=== PATIENT | male | born 1965 | race Caucasian/White ===

== ENCOUNTER → 2016-08-15 | Outpatient (CLI) | payer OTHER ==
--- NOTE | 2016-08-15 22:17 | MR ---
EXAMINATION TYPE: MR lumbar spine wo con DATE OF EXAM: 08/15/2016 10:19 AM COMPARISON: NONE HISTORY: Lumbago TECHNIQUE: T1 and T2 axial and sagittal images of the lumbar spine are submitted. FINDINGS: There is no abnormal signal seen within the visualized spinal cord or paraspinal soft tissu es. Vertebral vertebral body alignment maintained. Very minimal wedging of L1 appears chronic. Conus medullaris terminates at the upper margin of L1. Schmorl's node are seen involving [id number]. At T12-L1 there is mild circumferential disc bulging. No Canal stenosis. No foraminal encroachment. At L1-2 there is degenerative disc disease and circumferential disc bulging with mild effacement of t hecal sac. There is borderline to mild canal stenosis. Annular tear noted. No significant foraminal e ncroachment. At L2-3 there is no disc herniation or canal stenosis. Mild hypertrophy of the facet joints but no fo raminal encroachment or canal stenosis. At L3-4 there is degenerative disc disease with broad-based disc bulging result in moderate effacemen t of thecal sac. Facet arthropathy and ligamentum flavum contribute to mild canal stenosis and bilate ral mild foraminal encroachment. At L4-5 there is severe degenerative disc disease with a focal central disc protrusion or small centr al and left paracentral disc herniation with moderate effacement of thecal sac. There is hypertrophic change and ligamentum flavum and facet joints. Mild bilateral neural foraminal encroachment with mod erate canal stenosis. At L5-S1 there is no disc herniation or canal stenosis. No foraminal encroachment. IMPRESSION: 1. Multilevel degenerative disc disease with canal stenosis noted at levels L3-4 and L4-5 secondary t o disc bulging or protrusions discussed above. 2. Annular tear with disc bulging L1-L2 results in borderline to mild canal stenosis.
--- NOTE | 2016-08-16 12:46 | MR ---
MRI of the brain with and without contrast HISTORY: Visual disturbance. TECHNIQUE: T1-weighted sagittal, T2, FLAIR, and diffusion axial, postcontrast T1 axial and coronal vi ews of the brain are submitted. CONTRAST: 15 mL of MultiHance FINDINGS: There is no evidence of acute ischemia. The ventricles, basal cisterns, and sulci overlying the co nvexities are consistent with the patient's age. There is no mass effect or enhancing mass. Craniocervical junction maintained. Partially empty sella turcica. No evidence of cerebellopontine an gle mass. Changes of chronic sinusitis noted. There is a prominent CSF collection in the posterior fossa midlin e to the right measuring approximately 2 x 4 x 3.6 cm. This could represent a small arachnoid cyst or prominent cisterna magna. WHITE MATTER: No sizable areas of abnormal signal within the white matter. IMPRESSION: 1. No acute intracranial process. 2. Findings suggestive of a prominent cisterna magna or small arachnoid cyst within the posterior fos sa. EXAMINATION TYPE: MR cervical spine wo/w DATE OF EXAM: 08/15/2016 10:43 AM COMPARISON: NONE HISTORY: Visual disturbance, neck pain TECHNIQUE: T1 sagittal and coronal, T2 sagittal, and gradient echo axial, postcontrast T1 axial and s agittal views of the cervical spine are submitted. FINDINGS: The cranial cervical junction is preserved. There is no abnormal signal seen within the sp inal cord or paraspinal soft tissues. Alignment is maintained. Vertebral body height is maintained. T here is anterior cervical spinal fusion of C5-C7. Susceptibility artifact within the vertebral bodies limits evaluation at these levels. Prominent CSF space intracranially likely related to arachnoid cy st versus prominent cisterna magna. At C2-3 there is disc desiccation and mild uncovertebral joint hypertrophy. No foraminal encroachment , disc herniation or canal stenosis. At C3-4 there is moderate to severe degenerative disc disease. There is a central disc protrusion cap ped by spur compatible with a disc osteophyte complex. This results in anterior spinal cord compressi on. Uncovertebral joint hypertrophy and facet arthropathy result in severe bilateral foraminal encroa chment. At C4-5 there is posterior disc bulging or protrusion with disc osteophyte complex abutting the anter ior margin the spinal cord. Mild spinal stenosis. Uncovertebral joint hypertrophy and facet arthropat hy with mild right-sided foraminal encroachment and moderate left-sided foraminal encroachment. At C5-6 there is evidence of anterior cervical spinal fusion with probable discectomy. No canal steno sis or disc herniation. Facet arthropathy and uncovertebral joint hypertrophy result in severe bilate ral foraminal encroachment. At C6-7 there is postsurgical changes with no evidence of disc herniation or canal stenosis. Uncovert ebral joint hypertrophy seen with mild right foraminal encroachment and moderate left foraminal encro achment. At C7-T1 there is very mild central and posterior disc osteophyte complex without evidence of canal s tenosis. Facet arthropathy and uncovertebral joint hypertrophy with mild right foraminal encroachment and moderate left foraminal encroachment. IMPRESSION: 1. Postsurgical change compatible with anterior cervical spine fusion C5-C7 with no evidence of disc herniation or canal stenosis at this level. 2. Spinal cord compression C3-C4 secondary to disc protrusion capped by spur with significant spinal stenosis. 3. Multilevel degenerative disc disease with the most marked findings at C3-C4. There is also multile xin foraminal encroachment secondary to facet arthropathy and uncovertebral joint hypertrophy as disc ussed above.
== END | disposition home or self-care (01) ==
LOC: RADMRIMAIN 09:07
PROVIDERS: ATTEND Psychiatry & Neurology Neurology
DX: M51.36 Other intervertebral disc degeneration, lumbar region (principal); M51.26 Other intervertebral disc displacement, lumbar region; M48.06 Spinal stenosis, lumbar region; H53.9 Unspecified visual disturbance; M54.2 Cervicalgia
CPT/HCPCS: 70553; 72148; 72156; A9577

== ENCOUNTER → 2016-10-20 | Outpatient (CLI) | payer OTHER ==
--- NOTE | 2016-10-20 11:30 | XR ---
EXAMINATION TYPE: XR cervical spine w flex/ext DATE OF EXAM ORDERED: 10/20/2016 10:52 AM HISTORY: M50.30 cervical DDD. COMPARISON: None. FINDINGS: There has been a previous ACDF extending from C5 through to C7. Alignment remains normal. There is disc space loss and hypertrophic spondylosis at C2-3 and C3-4. Atlantoaxial relationships ar e normal. The intervertebral foramina left are poorly visualized. On the right there appears to be na rrowing most marked at C5-6 but also present at C6-7 and to a lesser extent C4-5. IMPRESSION: 1. POSTSURGICAL CHANGE. 2. DEGENERATIVE CHANGE. 3. MULTILEVEL INTERVERTEBRAL FORAMINAL NARROWING.
== END | disposition home or self-care (01) ==
LOC: RADXRMAIN 10:36
PROVIDERS: ATTEND Psychiatry & Neurology Neurology
DX: M99.71 Connective tissue and disc stenosis of intervertebral foramina of cervical region (principal); M47.812 Spondylosis without myelopathy or radiculopathy, cervical region; Z98.890 Other specified postprocedural states
CPT/HCPCS: 72052

== ENCOUNTER 2017-07-17 09:56 | Emergency (ER) | payer OTHER ==
--- NOTE | 2017-07-17 11:00 | ED ---
General Adult HPI - General Chief complaint: Fall Stated complaint: Fell downstairs 15 steps on Sunday Time Seen by Provider: 07/17/17 10:45 Source: patient, RN notes reviewed Mode of arrival: wheelchair Limitations: no limitations - History of Present Illness Initial comments: 52-year-old male presenting for evaluation of left-sided chest wall pain. Patient fell on Sunday which was 4 days ago. He states he fell down approximately 15 steps. He had left shoulder left hip and left chest wall pain after the fall. He was evaluated at an outside emergency department and was told that he had several rib fractures on the left. This is his primary pain complaint. States his shoulder and hip are improving. He denies any head or neck trauma with the fall. Denies any central chest pain or pressure. Denies abdominal pain nausea vomiting. No fever. He does report mild productive cough. He has a long-time history of smoking, no history of COPD or asthma. Patient is concerned because he is unable to clear his cough secondary to pain with deep inspiration. Patient was prescribed [place] and Motrin, he did not fill the Motrin and he's been taking the [place]. - Related Data Home Medications Medication Instructions Recorded Confirmed Cyclobenzaprine [Flexeril] 10 mg PO DAILY PRN 07/17/17 07/17/17 Hydrocodone/Acetaminophen [[place] 1 tab PO Q6HR PRN 07/17/17 07/17/17 7.5-325] Previous Rx's Medication Instructions Recorded HYDROcodone/APAP 5-325MG [[place] 1 tab PO Q6HR PRN #24 tab 07/17/17 5-325] Ibuprofen [Motrin] 600 mg PO Q8HR PRN #30 tab 07/17/17 Allergies Allergy/AdvReac Type Severity Reaction Status Date / Time No Known Allergies Allergy Verified 07/17/17 11:27 Review of Systems ROS Statement: Those systems with pertinent positive or pertinent negative responses have been documented in the HPI. ROS Other: All systems not noted in ROS Statement are negative. Past Medical History Additional Past Medical History / Comment(s): neck pain History of Any Multi-Drug Resistant Organisms: None Reported Additional Past Surgical History / Comment(s): cervical fusion Past Psychological History: No Psychological Hx Reported Smoking Status: Current every day smoker Past Alcohol Use History: Occasional Past Drug Use History: None Reported General Exam Limitations: no limitations General appearance: alert, in no apparent distress Head exam: Present: atraumatic, normocephalic Eye exam: Present: normal appearance, PERRL ENT exam: Present: normal exam Neck exam: Present: normal inspection, full ROM. Absent: tenderness Respiratory exam: Present: normal lung sounds bilaterally, chest wall tenderness (left lateral chest wall tenderness, no ecchymosis or external signs of trauma, no flail chest). Absent: respiratory distress, wheezes, rhonchi Cardiovascular Exam: Present: regular rate, normal rhythm GI/Abdominal exam: Present: soft. Absent: distended, tenderness, guarding Extremities exam: Present: normal inspection, normal capillary refill. Absent: pedal edema Back exam: Present: normal inspection, full ROM. Absent: tenderness, vertebral tenderness Neurological exam: Present: alert, oriented X3, CN II-XII intact. Absent: motor sensory deficit Psychiatric exam: Present: normal affect, normal mood Skin exam: Present: warm, dry, intact. Absent: cyanosis, diaphoretic (no external signs of trauma) Course Vital Signs 07/17/17 09:58 Temperature 97.5 F L Pulse Rate 75 Respiratory 16 Rate Blood Pressure 122/75 O2 Sat by Pulse 98 Oximetry Medical Decision Making - Medical Decision Making 52-year-old male with rib pain status post fall. Repeat x-rays are obtained to evaluate for pneumothorax, hemothorax, or focal pneumonia given the patient's cough complaint. X-ray is negative for pneumonia, negative for heme or pneumothorax. There is minimally displaced rib fractures 5 through 9. This does correspond with the patient's pain. He is encouraged to take Motrin and continue [place] for pain. He is given an incentive spirometer. He is also encouraged to quit smoking. He will monitor his pain and bleeding. He will follow-up with his primary care physician. Disposition Clinical Impression: Rib fractures Disposition: HOME SELF-CARE Condition: Good Instructions: Rib Fracture (ED) Prescriptions: HYDROcodone/APAP 5-325MG [[place] 5-325] 1 tab PO Q6HR PRN #24 tab PRN Reason: Pain Ibuprofen [Motrin] 600 mg PO Q8HR PRN #30 tab PRN Reason: Pain Referrals: Fernando Johnson DO [Primary Care Provider] - 1-2 days Time of Disposition: 11:47
--- NOTE | 2017-07-17 11:25 | XR ---
EXAMINATION TYPE: XR ribs LT w pa chest xray DATE OF EXAM: 07/17/2017 CLINICAL HISTORY: Fall with left-sided rib pain. TECHNIQUE: Single frontal view of the chest is obtained. COMPARISON: None FINDINGS: There is no focal air space opacity, pleural effusion, or pneumothorax seen. The cardiac silhouette size is within normal limits. There are minimally displaced rib fractures of the lateral m argins of ribs 5, 6, 7, 8, 9 and the posterior margin of rib 10 on the left. No appreciable pneumotho rax is seen. These rib fractures appear acute. Mild dextroscoliotic curvature of the thoracic spine a nd multilevel mild degenerative changes of the thoracic spine and acromioclavicular joints are presen t. Cervical fusion fixation plate is noted. IMPRESSION: Acute minimally displaced rib fractures of the lateral margin of rib 5 through 9 and post erior margin of rib 10 on the left with no appreciable pneumothorax.
[2017-07-17 12:34] VITALS: BP 150/78; PULSE 87; RESP 18; TEMP 97
== END 2017-07-17 12:32 | disposition home or self-care (01) ==
LOC: EC 09:56
DX: S22.42XA Multiple fractures of ribs, left side, initial encounter for closed fracture (principal); R05 Cough; M25.512 Pain in left shoulder; M25.552 Pain in left hip; F17.200 Nicotine dependence, unspecified, uncomplicated; W10.9XXA Fall (on) (from) unspecified stairs and steps, initial encounter; Y92.009 Unspecified place in unspecified non-institutional (private) residence as the place of occurrence of the external cause
CPT/HCPCS: 99284

== ENCOUNTER 2017-08-02 00:29 | Inpatient (IN) | payer OTHER ==
[2017-08-02] MEDS ORDERED: ACETAMINOPHEN IV (For NPO) 1,000 MG in EMPTY BAG 1 BAG IVPB STA (00:31)
[2017-08-02] MEDS ORDERED: HYDROmorphone 0.5 MG/0.5 ML SYRINGE IVP STA (00:31)
[2017-08-02] MEDS ORDERED: SODIUM CHLORIDE 0.9% 1,000 ML IV STA ×3 (00:31→02:20)
[2017-08-02] MEDS ORDERED: RX INFO: IV CONTRAST WAS GIVEN 1 EACH MISC MISCELLANE PRN (00:31)
[2017-08-02] MEDS ORDERED: SODIUM CHLORIDE 0.9% 500 ML IV STA (00:31)
--- NOTE | 2017-08-02 00:41 | ED ---
General Adult HPI - General Stated complaint: Rib pain,SOB Time Seen by Provider: 08/02/17 00:31 Source: patient, EMS, RN notes reviewed, old records reviewed Mode of arrival: ambulatory Limitations: no limitations - History of Present Illness Initial comments: This is a 52-year-old male the ER for evasive chest pain severe left-sided chest pain with radiation to his back stabbing chest pain right over his heart. Patient has history of smoking. Denies any other issues. Patient has no fevers no cough. Symptoms started tonight significantly worsening. Patient is recent of left rib fractures 5. Patient's pain has been getting proceeded progressively worse despite pain medications at home. It was much worse today. Uncontrollable. Patient having difficulty breathing secondary to pain - Related Data Home Medications Medication Instructions Recorded Confirmed Cyclobenzaprine [Flexeril] 10 mg PO DAILY PRN 07/17/17 07/17/17 Hydrocodone/Acetaminophen [[place] 1 tab PO Q6HR PRN 07/17/17 07/17/17 7.5-325] Previous Rx's Medication Instructions Recorded HYDROcodone/APAP 5-325MG [[place] 1 tab PO Q6HR PRN #24 tab 07/17/17 5-325] Ibuprofen [Motrin] 600 mg PO Q8HR PRN #30 tab 07/17/17 Allergies Allergy/AdvReac Type Severity Reaction Status Date / Time No Known Allergies Allergy Verified 08/02/17 00:33 Review of Systems ROS Statement: Those systems with pertinent positive or pertinent negative responses have been documented in the HPI. ROS Other: All systems not noted in ROS Statement are negative. Past Medical History Additional Past Medical History / Comment(s): neck pain History of Any Multi-Drug Resistant Organisms: None Reported Additional Past Surgical History / Comment(s): cervical fusion Past Psychological History: No Psychological Hx Reported Smoking Status: Current every day smoker Past Alcohol Use History: Occasional Past Drug Use History: None Reported General Exam Limitations: no limitations General appearance: alert, in no apparent distress Head exam: Present: atraumatic, normocephalic, normal inspection Eye exam: Present: normal appearance, PERRL, EOMI. Absent: scleral icterus, conjunctival injection, periorbital swelling ENT exam: Present: normal exam, mucous membranes moist Neck exam: Present: normal inspection. Absent: tenderness, meningismus, lymphadenopathy Respiratory exam: Present: normal lung sounds bilaterally, decreased breath sounds (Left-sided). Absent: respiratory distress, wheezes, rales, rhonchi, stridor Cardiovascular Exam: Present: normal rhythm, tachycardia, normal heart sounds. Absent: systolic murmur, diastolic murmur, rubs, gallop, clicks GI/Abdominal exam: Present: soft, normal bowel sounds. Absent: distended, tenderness, guarding, rebound, rigid Extremities exam: Present: normal inspection, full ROM, normal capillary refill. Absent: tenderness, pedal edema, joint swelling, calf tenderness Back exam: Present: normal inspection Neurological exam: Present: alert, oriented X3, CN II-XII intact Psychiatric exam: Present: normal affect, normal mood Skin exam: Present: warm, dry, intact, normal color. Absent: rash Course Vital Signs 08/02/17 08/02/17 08/02/17 00:33 00:47 01:14 Temperature 97.8 F Pulse Rate 113 H 107 H 96 Pulse Rate [ 107 H Cake Icer ] Respiratory 22 20 18 Rate Blood Pressure 107/77 102/63 102/59 O2 Sat by Pulse 98 100 98 Oximetry 08/02/17 01:30 Temperature Pulse Rate 91 Pulse Rate [ Cake Icer ] Respiratory 18 Rate Blood Pressure 109/64 O2 Sat by Pulse 100 Oximetry - Reevaluation(s) Reevaluation #1: 08/02/17 02:49 Patient is having decreasing blood pressure, and severe pain. Pain is mildly improved. Reevaluation #2: 08/02/17 02:49 Patient has severe left sided hydropneumothorax, chest tube is placed with significant serosanguineous drainage EKG Findings - EKG Comments: EKG Findings:: EKG shows sinus tachycardia rate 1:15, UT 132, QRS 86, QTc 442 Procedures - Chest Tube Insertion Consent Obtained: verbal consent Time Out Performed: Yes Side of Procedure: left Indication: HydroPneumothorax Placed on monitor/pulse oximetry: Yes Site Prep: Povidone-Iodine Local Anesthesia: Lidocaine 2%, With Epi Insertion Site: 5th Intercostal Space, Midaxillary Scalpel: #15 Open into Pleural Space Using: Hemostats Tube Size (Kosovan): 36 Returns: Blood, Other (serosanguinous) Sutured in Place: Yes Type of Suture: Silk Dressing Applied: 4x4, Tape Attached to Suction: Yes Type of Suction: Pleuravac Repeat X-ray Results: Lung Inflated Patient Tolerated Procedure: well Medical Decision Making - Medical Decision Making 53 male the ER stay with severe left-sided chest pain. Patient is hydropneumothorax secondary to rib fractures. Patient be admitted for continued evaluation, chest tube management - Lab Data Result diagrams: 08/02/17 00:30 08/02/17 00:30 Lab Results 08/02/17 08/02/17 08/02/17 Range/Units 00:30 00:30 00:30 WBC 22.9 H (3.8-10.6) k/uL RBC 5.28 (4.30-5.90) m/uL Hgb 15.4 (13.0-17.5) gm/dL Hct 50.7 (39.0-53.0) % MCV 95.9 (80.0-100.0) fL MCH 29.2 (25.0-35.0) pg MCHC 30.4 L (31.0-37.0) g/dL RDW 12.6 (11.5-15.5) % Plt Count 470 H (150-450) k/uL Neutrophils % 89 % Lymphocytes % 4 % Monocytes % 5 % Eosinophils % 1 % Basophils % 0 % Neutrophils # 20.4 H (1.3-7.7) k/uL Lymphocytes # 0.9 L (1.0-4.8) k/uL Monocytes # 1.3 H (0-1.0) k/uL Eosinophils # 0.3 (0-0.7) k/uL Basophils # 0.0 (0-0.2) k/uL Hypochromasia Slight PT (9.0-12.0) sec INR (<1.2) APTT (22.0-30.0) sec D-Dimer (<0.60) mg/L FEU Sodium 136 L (137-145) mmol/L Potassium 4.3 (3.5-5.1) mmol/L Chloride 97 L (98-107) mmol/L Carbon Dioxide 21 L (22-30) mmol/L Anion Gap 18 mmol/L BUN 23 H (9-20) mg/dL Creatinine 1.90 H (0.66-1.25) mg/dL Est GFR (MDRD) Af Amer 45 (>60 ml/min/1.73 sqM) Est GFR (MDRD) Non-Af 37 (>60 ml/min/1.73 sqM) Glucose 117 H (74-99) mg/dL Plasma Lactic Acid Andrea (0.7-2.0) mmol/L Calcium 9.5 (8.4-10.2) mg/dL Magnesium 2.5 H (1.6-2.3) mg/dL Total Bilirubin 0.8 (0.2-1.3) mg/dL AST 20 (17-59) U/L ALT 22 (21-72) U/L Alkaline Phosphatase 139 H (38-126) U/L Total Creatine Kinase <20 L (55-170) U/L CK-MB (CK-2) <0.2 (0.0-2.4) ng/mL CK-MB (CK-2) Rel Index Troponin I <0.012 (0.000-0.034) ng/mL NT-Pro-B Natriuret Pep pg/mL Total Protein 7.3 (6.3-8.2) g/dL Albumin 3.9 (3.5-5.0) g/dL Lipase 29 (23-300) U/L 08/02/17 08/02/17 08/02/17 Range/Units 00:30 00:30 00:30 WBC (3.8-10.6) k/uL RBC (4.30-5.90) m/uL Hgb (13.0-17.5) gm/dL Hct (39.0-53.0) % MCV (80.0-100.0) fL MCH (25.0-35.0) pg MCHC (31.0-37.0) g/dL RDW (11.5-15.5) % Plt Count (150-450) k/uL Neutrophils % % Lymphocytes % % Monocytes % % Eosinophils % % Basophils % % Neutrophils # (1.3-7.7) k/uL Lymphocytes # (1.0-4.8) k/uL Monocytes # (0-1.0) k/uL Eosinophils # (0-0.7) k/uL Basophils # (0-0.2) k/uL Hypochromasia PT 10.3 (9.0-12.0) sec INR 1.1 (<1.2) APTT 27.0 (22.0-30.0) sec D-Dimer 1.99 H (<0.60) mg/L FEU Sodium (137-145) mmol/L Potassium (3.5-5.1) mmol/L Chloride (98-107) mmol/L Carbon Dioxide (22-30) mmol/L Anion Gap mmol/L BUN (9-20) mg/dL Creatinine (0.66-1.25) mg/dL Est GFR (MDRD) Af Amer (>60 ml/min/1.73 sqM) Est GFR (MDRD) Non-Af (>60 ml/min/1.73 sqM) Glucose (74-99) mg/dL Plasma Lactic Acid Andrea 1.6 (0.7-2.0) mmol/L Calcium (8.4-10.2) mg/dL Magnesium (1.6-2.3) mg/dL Total Bilirubin (0.2-1.3) mg/dL AST (17-59) U/L ALT (21-72) U/L Alkaline Phosphatase (38-126) U/L Total Creatine Kinase (55-170) U/L CK-MB (CK-2) (0.0-2.4) ng/mL CK-MB (CK-2) Rel Index Troponin I (0.000-0.034) ng/mL NT-Pro-B Natriuret Pep 219 pg/mL Total Protein (6.3-8.2) g/dL Albumin (3.5-5.0) g/dL Lipase (23-300) U/L - Radiology Data Radiology results: report reviewed (CTA chest positive for left-sided hydropneumothorax significant with mild tympanitis fax, chest x-ray after tube placement is significantly improved, multiple rib fractures), image reviewed Critical Care Time Critical Care Time: Yes Total Critical Care Time: 31 Disposition Clinical Impression: Rib fractures, Fracture of rib of left side, Hydropneumothorax, Chest pain, Atypical chest pain, Pneumothorax Disposition: ADMITTED IP TO THIS [facility] Condition: Fair Referrals: Fernando Johnson, [Primary Care Provider] - 1-2 days
[2017-08-02 00:51] LABS: Basophils % (A) 0 %; Eosinophils # (A) 0.3 k/uL (0-0.7); Eosinophils % (A) 1 %; HCT 50.7 % (39.0-53.0); HGB 15.4 gm/dL (13.0-17.5); Hypochromasia Slight; Lymphocytes # (A) 0.9 k/uL (1.0-4.8); Lymphocytes % (A) 4 %; MCH 29.2 pg (25.0-35.0); MCHC 30.4 g/dL (31.0-37.0); MCV 95.9 fL (80.0-100.0); Mean Platelet Volume 6.6; Monocytes # (A) 1.3 k/uL (0-1.0); Monocytes % (A) 5 %; Neutrophils # (A) 20.4 k/uL (1.3-7.7); Neutrophils % (A) 89 %; Platelet Count 470 k/uL (150-450); RBC 5.28 m/uL (4.30-5.90); RDW 12.6 % (11.5-15.5); WBC 22.9 k/uL (3.8-10.6)
[2017-08-02 01:01] LABS: Albumin 3.9 g/dL (3.5-5.0); Calcium 9.5 mg/dL (8.4-10.2); Potassium 4.3 mmol/L (3.5-5.1); Total Bilirubin 0.8 mg/dL (0.2-1.3); Total Protein 7.3 g/dL (6.3-8.2)
[2017-08-02 01:03] LABS: D-Dimer 1.99 mg/L FEU (<0.60)
[2017-08-02 01:07] LABS: INR 1.1 (<1.2); Prothrombin Time 10.3 sec (9.0-12.0)
[2017-08-02 01:12] LABS: Creatine Kinase <20 U/L (55-170)
--- NOTE | 2017-08-02 01:16 | CT ---
EXAMINATION TYPE: CT angio chest DATE OF EXAM: 08/02/2017 1:04 AM COMPARISON: NONE HISTORY: NO prior, left rib fxs 2 weeks ago, R/O PE CT DLP: 295.30 mGycm Automated exposure control for dose reduction was used. CONTRAST: CTA scan of the thorax is performed with IV Contrast, patient injected with 70 mL of Omnipaque 350, p ulmonary embolism protocol. There are 3-D post processed images.. FINDINGS: There is a large left pleural effusion. Heart and mediastinum are shifted to the right side. There is significant atelectasis in the left lung. There is normal contrast opacification of the thoracic aorta. There is no evidence of aneurysm or dis section. I see no filling defects in the pulmonary arteries. There is no pericardial effusion. There is mild s ubsegmental atelectasis at the right lung base. There is no mediastinal adenopathy. There are numerou s posterior left rib fractures with some callus formation. There is comminution. IMPRESSION: NO EVIDENCE OF PULMONARY EMBOLISM. THERE IS LEFT-SIDED HYDROTHORAX WITH MILD TENSION. HEART AND MEDIA STINUM ARE SHIFTED TO THE RIGHT SIDE. NUMEROUS HEALING POSTERIOR LEFT RIB FRACTURES. MULTIPLE LATERAL LEFT-SIDED RIB FRACTURES ALSO PRESENT APPEAR MORE ACUTE.
[2017-08-02 01:25] LABS: Creatine Kinase MB <0.2 ng/mL (0.0-2.4); Troponin I <0.012 ng/mL (0.000-0.034)
[2017-08-02] MEDS ORDERED: VANCOMYCIN IV PER PHARMACY 1 EACH MISC MISCELLANE PRN (01:31)
[2017-08-02] MEDS ORDERED: PIPERACILLIN-TAZOBACTAM 3.375 GM in DEXTROSE/WATER 1 50ML.BAG IVPB STA (01:31)
[2017-08-02] MEDS ORDERED: LORazepam 2 MG/ML INJ IV STA (01:31)
[2017-08-02] MEDS ORDERED: LIDOCAINE 1%-EPI 1:100,000 20 ML VIAL SQ STA (01:39)
--- NOTE | 2017-08-02 02:38 | XR ---
EXAMINATION TYPE: XR chest 1V portable DATE OF EXAM: 08/02/2017 COMPARISON: NONE HISTORY: July 17, 2017 TECHNIQUE: Single frontal view of the chest is obtained. FINDINGS: There is some consolidation in the left lower lobe. There is mild pulmonary congestion. Th ere is relative poor inspiration. There are numerous lateral left rib fractures. There are chest lead s. There is no sign of a pneumothorax. IMPRESSION: There is new left pleural effusion and left lower lobe consolidation compared to last ex am. Left chest tube appears in good position. No pneumothorax. There are fractures of left 6 7 8/9 ribs which appears slightly more displaced than last exam.
[2017-08-02] MEDS ORDERED: ONDANSETRON 4 MG/2 ML VIAL IVP PRN (02:48)
[2017-08-02] MEDS ORDERED: LIDOCAINE 1%-EPI 1:100,000 30 ML VIAL SUBMUCOSAL STA (02:49)
[2017-08-02] MEDS ORDERED: THIAMINE 100 MG/ML 2 ML VIAL IM STA (04:00)
[2017-08-02] MEDS ORDERED: LORazepam 2 MG/ML INJ IV PRN ×3 (04:00)
[2017-08-02] MEDS: SODIUM CHLORIDE 0.9% 1,000 ML IV SCH ×3 (06:05→23:59)
[2017-08-02] MEDS: VANCOMYCIN 1,250 MG in SODIUM CHLORIDE 0.9% 250 ML IVPB SCH (06:54)
[2017-08-02] MEDS: IPRATROPIUM-ALBUTEROL 3 ML NEB INHALATION SCH ×4 (07:43→19:40)
[2017-08-02] MEDS: MORPHINE SULFATE 4 MG/ML SYRINGE IVP PRN ×4 (11:17→22:09)
--- NOTE | 2017-08-02 13:28 | P.CNPUL ---
History of Present Illness Consult date: 08/02/17 Requesting physician: Camilo Banks Reason for consult: abnormal CXR/CT Chief complaint: Left scapular, shoulder and anterior chest wall pain History of present illness: This is a pleasant 52-year-old gentleman who follows with Dr. Johnson as his primary care physician. He has no significant past medical history other than chronic and ongoing tobacco use and chronic neck pain with previous cervical fusion. Approximately 20 days ago on 07/13/2017 he had gotten up in the middle of the night to use the restroom. He was putting on a sock and heading down the stairs when he missed the first step and fell down 15 steps. He was seen at outside emergency room and was told he had 2-3 left-sided broken ribs was treated with pain medications and released. He had continuing ongoing pain and presented here to the emergency room on 07/17/2017 with continued complaints of significant left chest wall pain. No real worsening shortness of breath. No cough or congestion. No hemoptysis. He was having some pain with end expiration. Chest x-ray at that time did not reveal any evidence of pneumothorax, hemothorax or focal pneumonia. He was noted to have displaced rib fractures 5 through 9 on the left. He was continued on [place] and Motrin for the pain. Unfortunately continued to have worsening and ongoing pain and presented here to the emergency room early this morning around midnight. The pain was quite severe and he was quite short of breath. A CT angiogram was performed. Pulmonary embolism was ruled out however there was a significant left-sided hydrothorax with mild tension. His heart and mediastinum were shifted to the right. There are numerous healing posterior left rib fractures. The chest tube was inserted and approximately 650 MLS of bloody fluid was returned. He has had some relief of the pain. Follow-up chest x-ray does reveal some improvement however there is continued fluid possibly loculated. White count 22.9. Hemoglobin 15.4. Creatinine 1.90. He is on vancomycin and Zosyn. He is maintaining good O2 saturations in the upper 90s on 3 L/m per nasal cannula. He is hemodynamically stable. Afebrile. Review of Systems 14 point review of system was conducted. All negative other than as mentioned in HPI He immediately pulmonary with left-sided chest wall discomfort, shortness of breath secondary to multiple rib fracture and trauma with large left hydrothorax status post chest tube insertion. Past Medical History Additional Past Medical History / Comment(s): neck pain,CERVICAL FUSION, ETOH, History of Any Multi-Drug Resistant Organisms: None Reported Additional Past Surgical History / Comment(s): cervical fusion Past Anesthesia/Blood Transfusion Reactions: No Reported Reaction Past Psychological History: No Psychological Hx Reported Smoking Status: Current every day smoker Past Alcohol Use History: Daily, Heavy Additional Past Alcohol Use History / Comment(s): DRINKS 18 BEERS A DAY. SMOKES A PPD AND SMOKES MARIJUANA DAILY. Past Drug Use History: None Reported, Marijuana - Past Family History Father Family Medical History: Myocardial Infarction ([place]) Medications and Allergies Home Medications Medication Instructions Recorded Confirmed Type Cyclobenzaprine [Flexeril] 10 mg PO DAILY PRN 07/17/17 08/02/17 History Hydrocodone/Acetaminophen [[place] 1 tab PO Q6HR PRN 07/17/17 08/02/17 History 7.5-325] Ibuprofen [Motrin] 600 mg PO Q8HR PRN #30 tab 07/17/17 08/02/17 Rx Allergies Allergy/AdvReac Type Severity Reaction Status Date / Time No Known Allergies Allergy Verified 08/02/17 08:27 Physical Exam Vitals: Vital Signs Temp Pulse Pulse Pulse Resp BP BP 08/02/17 11:58 84 08/02/17 11:42 84 08/02/17 11:33 84 16 08/02/17 11:08 97.8 F 84 16 118/71 08/02/17 08:05 97.7 F 85 16 99/58 08/02/17 08:00 85 16 08/02/17 07:55 88 08/02/17 07:43 80 08/02/17 04:00 97.8 F 84 17 112/71 08/02/17 03:18 97.8 F 84 17 112/71 08/02/17 03:00 86 18 108/71 08/02/17 01:30 91 18 109/64 08/02/17 01:14 96 18 102/59 08/02/17 00:47 107 H 107 H 20 102/63 08/02/17 00:33 97.8 F 113 H 22 107/77 Pulse Ox 08/02/17 11:58 08/02/17 11:42 08/02/17 11:33 08/02/17 11:08 98 08/02/17 08:05 98 08/02/17 08:00 08/02/17 07:55 08/02/17 07:43 08/02/17 04:00 97 08/02/17 03:18 97 08/02/17 03:00 97 08/02/17 01:30 100 08/02/17 01:14 98 08/02/17 00:47 100 08/02/17 00:33 98 Intake and Output 08/01/17 08/02/17 08/02/17 22:59 06:59 14:59 Intake Total 3000 120 Output Total 650 520 Balance 2350 -400 Intake: IV 200 Sodium Chloride 0.9% 1, 200 000 ml @ 100 mls/hr IV . Q10H SAMEER Rx#:[id number] Amount of Fluid Infused ( 2500 ml) Intake, IV Titration 300 Amount Piperacillin-Tazobactam 3 50 .375 gm In Dextrose/Water 1 50ml.bag @ 12.5 mls/hr IVPB ONCE STA Rx#: [id number] Vancomycin 1,250 mg In 250 Sodium Chloride 0.9% 250 ml @ 125 mls/hr IVPB Q24H SAMEER Rx#:[id number] Oral 120 Output: Chest Tube Drainage 650 20 Chest Tube Left Upper Mid 650 20 -Axillary Chest Urine 500 Other: Voiding Method Urinal Toilet # Voids 1 # Bowel Movements 0 Weight 69.9 kg 69.9 kg Patient Weight 08/03/17 06:59 Weight 69.9 kg GENERAL EXAM: Alert, active, comfortable in no apparent distress. HEAD: Normocephalic. EYES: Normal reaction of pupils, equal size. NOSE: Clear with pink turbinates. THROAT: No erythema or exudates. NECK: No masses, no JVD. CHEST: Left-sided chest tube in place LUNGS: Equal air entry with rhonchi and crackles in the left lung. CVS: S1 and S2 normal with no audible murmur, regular rhythm. ABDOMEN: No hepatosplenomegaly, normal bowel sounds, no guarding or rigidity. SPINE: No scoliosis or deformity SKIN: No rashes CENTRAL NERVOUS SYSTEM: No focal deficits, tone is normal in all 4 extremities. EXTREMITIES: There is no peripheral edema. No clubbing, no cyanosis. Peripheral pulses are intact. Results - Laboratory Findings CBC and BMP: 02/22/18 00:30 08/02/17 00:30 PT/INR, D-dimer PT 10.3 sec (9.0-12.0) 08/02/17 00:30 INR 1.1 (<1.2) 08/02/17 00:30 D-Dimer 1.99 mg/L FEU (<0.60) H 08/02/17 00:30 Abnormal lab findings: Abnormal Labs 08/02/17 08/02/17 08/02/17 00:30 00:30 00:30 WBC 22.9 H MCHC 30.4 L Plt Count 470 H Neutrophils # 20.4 H Lymphocytes # 0.9 L Monocytes # 1.3 H D-Dimer Sodium 136 L Chloride 97 L Carbon Dioxide 21 L BUN 23 H Creatinine 1.90 H Glucose 117 H Magnesium 2.5 H Alkaline Phosphatase 139 H Total Creatine Kinase <20 L 08/02/17 00:30 WBC MCHC Plt Count Neutrophils # Lymphocytes # Monocytes # D-Dimer 1.99 H Sodium Chloride Carbon Dioxide BUN Creatinine Glucose Magnesium Alkaline Phosphatase Total Creatine Kinase - Diagnostic Findings Chest x-ray: image reviewed CT scan - chest: image reviewed Assessment and Plan Assessment: Impression: #1 Acute hypoxic respiratory failure secondary to a large left hydrothorax secondary to trauma. Status post chest tube insertion. Follow-up chest x-ray shows improvement however there is still continued left pleural effusion and consolidation. Possibly loculated. #2 Left-sided chest wall trauma with multiple rib fractures secondary to a fall down 15 steps on 07/13/2017 #3 Chronic and ongoing tobacco dependence. #4 Chronic neck pain, status post cervical fusion. Plan: The patient was seen and evaluated by Dr. Wright. His chest x-ray, computed tomography scan were reviewed. There is some concern regarding possible loculated fluid remaining in the left chest. We have asked cardiothoracic surgery to evaluate for possible TPA ejection to avoid possible open pleurodesis. In the interim, we have added a incentive spirometer to encourage cough and deep breathing exercises. Continue bronchodilators. He is educated regarding the importance of smoking cessation. A NicoDerm patch will be offered. Adequate pain control. Increase his activity as tolerated. We will continue to follow make further recommendations based on his clinical status. I, the cosigning physician, performed a history & physical examination of the patient. Lungs sounds have scattered rhonchi more so on the left lung, crackles in the posterior base. Maintaining good O2 saturations in the 90s on 3 L/m per nasal cannula. I discussed the assessment and plan of care with my nurse practitioner, Arielle Nino. I attest to the above consultation as dictated by her. Time with Patient: Greater than 30
[2017-08-02] MEDS: THIAMINE 100 MG TAB PO SCH (16:03)
[2017-08-02] MEDS: ACETAMINOPHEN TAB 325 MG TAB PO PRN (16:47)
[2017-08-02 19:32] LABS: Appearance,Urine Clear (Clear); Bilirubin,Urine Negative (Negative); Blood,Urine Negative (Negative); Color,Urine Yellow; Glucose,Urine (UA) Negative (Negative); Ketones,Urine Negative (Negative); Leukocyte Esterase,Urine Negative (Negative); PH, Urine 5.5 (5.0-8.0); Protein,Urine Trace (Negative); Specific Gravity,Urine 1.007 (1.001-1.035); Urobilinogen,Urine <2.0 mg/dL (<2.0)
[2017-08-02] MEDS ORDERED: TEMAZEPAM 15 MG CAP PO PRN (23:20)
[2017-08-02] MEDS ORDERED: CYCLOBENZAPRINE 10 MG TAB PO PRN (23:21)
--- NOTE | 2017-08-03 03:11 | HP ---
HISTORY AND PHYSICAL CHIEF COMPLAINT: Shortness of breath and chest wall pain. HISTORY OF PRESENT ILLNESS: This 52-year-old gentleman with a past medical history of multiple medical problems including cervical fusion, DJD, history of ETOH, history of nicotine dependence being followed by in the outpatient setting apparently fell from the steps about a few weeks ago. Patient fell down 15 steps. The patient taken to the emergency room and was found to have left-sided rib fractures. The patient did not have any other complications. Patient went home. Subsequently patient developed progressive shortness of breath with left-sided chest pain and the patient came to [facility] and found to have significant pleural effusion on the left side. Chest tube was inserted and significant bloody drainage obtained. Patient admitted to the hospital for further evaluation and treatment. There is no history of fever, rigors or chills. No history of headache, loss of consciousness or seizures. Pulmonary embolism was ruled out at the time of admission at this time. Healing rib fractures also noted in the CT scan. The patient was being evaluated by Dr. Wright from the Pulmonary Department. At this time CT angio on admission as mentioned early did not show any acute pulmonary embolism, but left-sided hydrothorax with mild tension was noted with some mediastinal shift. The patient is feeling much better after chest tube insertion. PAST MEDICAL HISTORY: History of neck pain, cervical DJD, history of EtOH, history of nicotine dependence. MEDICATIONS: Prior to admission include: 1. Motrin 600 mg daily p.r.n. 2. Hydrocodone 1 tablet every 6 hours p.r.n. 3. Flexeril 10 mg daily p.r.n. ALLERGIES: None. FAMILY HISTORY: History of myocardial infarction in the family. SOCIAL HISTORY: History of smoking, alcohol and THC as mentioned earlier. REVIEW OF SYSTEMS: ENT: No diminished hearing or vision. CARDIOVASCULAR: No angina or palpitations. Respiration: As mentioned earlier. GI as mentioned earlier. no dysuria. Nervous system: No numbness, weakness. Allergy/Immunology: No asthma or hayfever. Musculoskeletal: As mentioned earlier. Oncology: No history of anemia. Endocrine: No history of diabetes or hypothyroidism. Constitutional: As mentioned earlier. Dermatology: Negative. Rheumatology: Negative. Psychiatric: As mentioned earlier. PHYSICAL EXAMINATION: Alert and oriented x2. Pulse is 97, blood pressure is 131/71, respiration 16, temperature is 102.2, pulse ox 98% on 2 L. HEENT is conjunctivae normal. Oral mucosa moist. Neck is no jugular venous distention. No carotid bruit. No lymph node enlargement. Cardiovascular is S1, S2. No S3, no S4. RESPIRATORY: Breath sounds diminished in the bases, left more than right. A few scattered rhonchi and crackles. ABDOMEN: Soft, nontender. No mass palpable. Status post left-sided chest tube drainage. No edema no swelling. NERVOUS SYSTEM: Higher functions as mentioned earlier, moves all 4 limbs, no focal motor or sensory deficits. Lymphatics: No lymph nodes palpable in the neck, axillae or groin. Skin no ulcer, rash or bleeding. LABS: WBC 22.9, platelets of 470. Other Labs are a D-dimer is 1.9 sodium 136 and creatinine 1.90, glucose 119. The fluid reports are not available. NT proBNP is 219. Troponin is negative. ASSESSMENT: 1. Left-sided pleural effusion possibly traumatic hemothorax on chest tube drainage with acute hypoxic respiratory failure and minimal present on admission. 2. Increased WBC. Rule out pneumonic pneumonia and sepsis. 3. Hyponatremia. 4. Increased creatinine with mild acute renal failure possibly multifactorial. 5. History of degenerative joint disease. 6. History of neck pain. 7. History of ETOH. 8. History of cervical fusion. 9. History of nicotine dependence. 10.History of THC. RECOMMENDATIONS AND DISCUSSION: In this 52-year-old gentleman who presented with multiple complex medical issues , we will monitor the patient closely, continue the current medications, management and symptomatic treatment. I will initiate broad-spectrum IV antibiotics. I would also recommend incentive spirometry, bronchodilators. Closely follow with Dr. Wright. I would also recommend cardiothoracic surgery evaluation also. Otherwise the prognosis guarded because of multiple complex medical issues and further recommendations to follow. A copy of dictation is being forwarded to who is the primary care physician. See orders for details. ETOH cessation. CIWA protocol. Supplement vitamins. Further recommendations to follow. Discussed with the patient who understands and agrees. MMODL / IJN: [id number] / GINGER
[2017-08-03] MEDS: MORPHINE SULFATE 4 MG/ML SYRINGE IVP PRN ×2 (06:15→11:33)
[2017-08-03] MEDS: PANTOPRAZOLE 40 MG TABLET PO SCH (06:16)
[2017-08-03] MEDS: VANCOMYCIN 1,250 MG in SODIUM CHLORIDE 0.9% 250 ML IVPB SCH ×2 (06:16→20:08)
[2017-08-03 06:35] LABS: Basophils # (A) 0.1 k/uL (0-0.2); Basophils % (A) 0 %; Eosinophils # (A) 0.1 k/uL (0-0.7); Eosinophils % (A) 0 %; HCT 42.5 % (39.0-53.0); HGB 13.2 gm/dL (13.0-17.5); Lymphocytes % (A) 5 %; MCH 28.8 pg (25.0-35.0); MCHC 31.1 g/dL (31.0-37.0); MCV 92.8 fL (80.0-100.0); Mean Platelet Volume 6.5; Monocytes # (A) 1.5 k/uL (0-1.0); Monocytes % (A) 7 %; Neutrophils # (A) 19.7 k/uL (1.3-7.7); Neutrophils % (A) 87 %; Platelet Count 393 k/uL (150-450); RBC 4.58 m/uL (4.30-5.90); RDW 12.5 % (11.5-15.5); WBC 22.5 k/uL (3.8-10.6)
[2017-08-03 06:43] LABS: Amylase <30 U/L (30-110); Anion Gap 12 mmol/L; Blood Urea Nitrogen 15 mg/dL (9-20); Calcium 8.5 mg/dL (8.4-10.2); Carbon Dioxide 22 mmol/L (22-30); Chloride 100 mmol/L (98-107); Cholesterol 84 mg/dL (<200); Glucose 108 mg/dL (74-99); HDL Cholesterol 21 mg/dL (40-60); LDL Cholesterol,Calculated 40 mg/dL (0-99); Lipase 13 U/L (23-300); Potassium 3.8 mmol/L (3.5-5.1); Sodium 134 mmol/L (137-145); Triglycerides 117 mg/dL (<150)
--- NOTE | 2017-08-03 08:04 | XR ---
EXAMINATION TYPE: XR chest 1V portable DATE OF EXAM: 08/03/2017 COMPARISON: Prior chest x-ray 08/02/2017 HISTORY: Hydropneumothorax, chest tube TECHNIQUE: Single frontal view of the chest is obtained. FINDINGS: Left-sided chest tube is present, the side port of the tube is outside of the chest. Multi ple left-sided rib fractures are displaced. Increased density has developed in the left chest is comp ared to prior exam. Postop changes are noted to the cervical spine. There is an underlying scoliosis present. Heart size is obscured, tracheal shift suspected towards the right. There are overlying card iac leads. IMPRESSION: Chest tube placement as described with side-port outside of the left hemithorax. Suspect increasing pleural effusion or hemothorax. There is associated atelectasis. Difficult to exclude mas s effect on the mediastinum. Results relayed to Shyanne telephonically at the time of interpretation o f the exam.
[2017-08-03] MEDS: IPRATROPIUM-ALBUTEROL 3 ML NEB INHALATION SCH ×4 (08:19→19:25)
[2017-08-03] MEDS: HEPARIN SODIUM,PORCINE 5,000 UNIT/ML 1 ML VIAL SQ SCH ×2 (08:42→20:53)
[2017-08-03] MEDS: NICOTINE 14MG/24HR PATCH TRANSDERM SCH (08:43)
[2017-08-03] MEDS: ACETAMINOPHEN TAB 325 MG TAB PO PRN (08:43)
--- NOTE | 2017-08-03 09:14 | P.GSCN ---
History of Present Illness Consult date: 08/03/17 Reason for Consult: Chest tube management status posts hydropneumothorax. Requesting physician: Camilo Banks History of present illness: This 52-year-old gentleman with a previous medical history of tobacco dependence , alcohol abuse, marijuana use, and previous DVT many years ago presented to the emergency room with increasing left-sided chest pain and shortness of breath. Apparently he had fallen down 15 stairs 2 weeks ago had presented to the emergency room at that time and was found to have multiple rib fractures without any other complications. He was sent home with pain medication. Over the past couple of weeks his pain has continued to grow and as well as shortness of breath. When he presented to [facility] emergency room on August 02 his chest CTA demonstrated large left pleural effusion, left-sided hydrothorax with mild tension and numerous healing posterior left rib fractures. A left-sided chest tube was placed by the emergency room physicians. Follow-up x-ray demonstrated chest tube to be in good position, no pneumothorax, continued left pleural effusion with consolidation, and rib fractures which appear to be more displaced than the previous exam. Apparently there was some concern for loculation of fluid and Dr. Hogue from cardiothoracic surgery was consulted regarding chest tube management and recommendations regarding tPA infusion into the chest tube to void pleurodesis. Of note, repeat chest x-ray this morning demonstrates the chest tube to have a side port outside of the left hemithorax, increasing pleural effusion and possible mass effect in the mediastinum. Review of Systems 14 point review systems was completed and is negative except as noted in the HPI. - Cardiovascular Reports as per HPI - Respiratory Reports as per HPI Past Medical History Past Medical History: Deep Vein Thrombosis (DVT) Additional Past Medical History / Comment(s): neck pain,CERVICAL FUSION, ETOH, History of Any Multi-Drug Resistant Organisms: None Reported Additional Past Surgical History / Comment(s): cervical fusion Past Anesthesia/Blood Transfusion Reactions: No Reported Reaction Past Psychological History: No Psychological Hx Reported Smoking Status: Current every day smoker Past Alcohol Use History: Daily, Heavy Additional Past Alcohol Use History / Comment(s): DRINKS 18 BEERS A DAY. SMOKES A PPD AND SMOKES MARIJUANA DAILY. Past Drug Use History: Marijuana - Past Family History Father Family Medical History: Myocardial Infarction ([place]) Medications and Allergies Home Medications Medication Instructions Recorded Confirmed Type Cyclobenzaprine [Flexeril] 10 mg PO DAILY PRN 07/17/17 08/02/17 History Hydrocodone/Acetaminophen [[place] 1 tab PO Q6HR PRN 07/17/17 08/02/17 History 7.5-325] Ibuprofen [Motrin] 600 mg PO Q8HR PRN #30 tab 07/17/17 08/02/17 Rx Allergies Allergy/AdvReac Type Severity Reaction Status Date / Time No Known Allergies Allergy Verified 08/02/17 08:27 Surgical - Exam Vital Signs Temp Pulse Resp BP Pulse Ox 97.8 F 113 H 22 107/77 98 08/02/17 00:33 08/02/17 00:33 08/02/17 00:33 08/02/17 00:33 08/02/17 00:33 - General well developed, well nourished, no distress - Eyes PERRL, normal ocular movement - ENT no hearing loss - Neck no masses, no bruits, trachea midline - Respiratory Lungs sounds diminished bilaterally, left greater than right. Respirations even , nonlabored. Currently 2 L nasal cannula with oxygen saturations 96%. Left pleural chest tube to -20 cm wall suction, no documented output since 3 PM yesterday but there was some serous drainage in the tube this morning, 800 mL serous drainage present, no air leak present. - Cardiovascular S1, S2 present. Regular rate and rhythm, sinus rhythm on telemetry. Palpable peripheral pulses bilaterally. No edema present. No calf pain or tenderness noted. - Abdomen Abdomen: soft, non tender, bowel sounds - Genitourinary Voiding clear, yellow urine per urinal. - Rectum Deferred - Integumentary no rash, no growths - Neurologic normal coordination, normal sensation - Psychiatric oriented to time, oriented to person, oriented to place, speech is normal, memory intact Results - Labs 08/03/17 06:02 08/03/17 06:02 Abnormal Lab Results - Last 24 Hours (Table) 08/02/17 08/03/17 08/03/17 Range/Units 15:33 06:02 06:02 WBC 22.5 H (3.8-10.6) k/uL Neutrophils # 19.7 H (1.3-7.7) k/uL Monocytes # 1.5 H (0-1.0) k/uL Sodium 134 L (137-145) mmol/L Glucose 108 H (74-99) mg/dL HDL Cholesterol 21 L (40-60) mg/dL Amylase <30 L (30-110) U/L Lipase 13 L (23-300) U/L Urine Protein Trace H (Negative) Microbiology - Last 24 Hours (Table) 08/02/17 00:30 Blood Culture - Preliminary Blood No Growth after 24 hours 08/02/17 17:18 Urine Culture - Preliminary Urine,Clean Catch Diabetes panel 08/03/17 Range/Units 06:02 Sodium 134 L (137-145) mmol/L Potassium 3.8 (3.5-5.1) mmol/L Chloride 100 (98-107) mmol/L Carbon Dioxide 22 (22-30) mmol/L BUN 15 (9-20) mg/dL Creatinine 1.10 (0.66-1.25) mg/dL Glucose 108 H (74-99) mg/dL Calcium 8.5 (8.4-10.2) mg/dL Triglycerides 117 (<150) mg/dL HDL Cholesterol 21 L (40-60) mg/dL Calcium panel 08/03/17 Range/Units 06:02 Calcium 8.5 (8.4-10.2) mg/dL Pituitary panel 08/03/17 Range/Units 06:02 Sodium 134 L (137-145) mmol/L Potassium 3.8 (3.5-5.1) mmol/L Chloride 100 (98-107) mmol/L Carbon Dioxide 22 (22-30) mmol/L BUN 15 (9-20) mg/dL Creatinine 1.10 (0.66-1.25) mg/dL Glucose 108 H (74-99) mg/dL Calcium 8.5 (8.4-10.2) mg/dL Adrenal panel 08/03/17 Range/Units 06:02 Sodium 134 L (137-145) mmol/L Potassium 3.8 (3.5-5.1) mmol/L Chloride 100 (98-107) mmol/L Carbon Dioxide 22 (22-30) mmol/L BUN 15 (9-20) mg/dL Creatinine 1.10 (0.66-1.25) mg/dL Glucose 108 H (74-99) mg/dL Calcium 8.5 (8.4-10.2) mg/dL - Imaging Chest x-ray: report reviewed, image reviewed CT scan - chest: report reviewed, image reviewed Assessment and Plan (1) Tobacco dependence Current Visit: Yes Status: Chronic Code(s): F17.200 - NICOTINE DEPENDENCE, UNSPECIFIED, UNCOMPLICATED SNOMED Code(s): 94700632 (2) Alcohol abuse Current Visit: Yes Status: Chronic Code(s): F10.10 - ALCOHOL ABUSE, UNCOMPLICATED SNOMED Code(s): 06025452 (3) Marijuana use Current Visit: Yes Status: Chronic Code(s): F12.90 - CANNABIS USE, UNSPECIFIED, UNCOMPLICATED SNOMED Code(s): 703151913 (4) History of DVT (deep vein thrombosis) Current Visit: No Status: Resolved Code(s): Z86.718 - PERSONAL HISTORY OF OTHER VENOUS THROMBOSIS AND EMBOLISM SNOMED Code(s): 657032581 (5) Chest pain Current Visit: Yes Status: Chronic Code(s): R07.9 - CHEST PAIN, UNSPECIFIED SNOMED Code(s): 19088343 (6) Fracture of rib of left side Current Visit: Yes Status: Chronic Code(s): S22.32XA - FRACTURE OF ONE RIB, LEFT SIDE, INIT FOR CLOS FX SNOMED Code(s): 03710183 (7) Hydropneumothorax Current Visit: Yes Status: Acute Code(s): J94.8 - OTHER SPECIFIED PLEURAL CONDITIONS SNOMED Code(s): 10217879 Plan: The patient was seen and examined at the bedside. He appears stable at this time. Chart/diagnostics were reviewed including the repeat x-ray this morning. Will discuss the case with Dr. Hogue for recommendations regarding TPA infusion. Continue medical management including CIWA protocol and pain control per primary care service. We will order IS, encourage patient to use incentive spirometer 10 times every hour. Thank you for this consult. We look for to work with you in the care of your patient. Time with Patient: Greater than 30
[2017-08-03] MEDS: HYDROcodone/APAP 5-325MG 1 EACH TAB PO PRN (09:22)
[2017-08-03] MEDS: SODIUM CHLORIDE 0.9% 1,000 ML IV SCH ×2 (09:26→20:11)
--- NOTE | 2017-08-03 11:35 | P.PN ---
Subjective Progress Note Date: 08/03/17 Principal diagnosis: Large left-sided pleural effusion with suspected loculation. This is a pleasant 52-year-old gentleman who follows with Dr. Johnson as his primary care physician. He has no significant past medical history other than chronic and ongoing tobacco use and chronic neck pain with previous cervical fusion. Approximately 20 days ago on 07/13/2017 he had gotten up in the middle of the night to use the restroom. He was putting on a sock and heading down the stairs when he missed the first step and fell down 15 steps. He was seen at outside emergency room and was told he had 2-3 left-sided broken ribs was treated with pain medications and released. He had continuing ongoing pain and presented here to the emergency room on 07/17/2017 with continued complaints of significant left chest wall pain. No real worsening shortness of breath. No cough or congestion. No hemoptysis. He was having some pain with end expiration. Chest x-ray at that time did not reveal any evidence of pneumothorax, hemothorax or focal pneumonia. He was noted to have displaced rib fractures 5 through 9 on the left. He was continued on Jal and Motrin for the pain. Unfortunately continued to have worsening and ongoing pain and presented here to the emergency room early this morning around midnight. The pain was quite severe and he was quite short of breath. A CT angiogram was performed. Pulmonary embolism was ruled out however there was a significant left-sided hydrothorax with mild tension. His heart and mediastinum were shifted to the right. There are numerous healing posterior left rib fractures. The chest tube was inserted and approximately 650 MLS of bloody fluid was returned. He has had some relief of the pain. Follow-up chest x-ray does reveal some improvement however there is continued fluid possibly loculated. White count 22.9. Hemoglobin 15.4. Creatinine 1.90. He is on vancomycin and Zosyn. He is maintaining good O2 saturations in the upper 90s on 3 L/m per nasal cannula. He is hemodynamically stable. Afebrile. The patient is seen again today 08/03/2017 in follow-up on the selective care unit. He is awake and alert in no acute distress. He is still quite uncomfortable and needs extra encouragement regarding deep breathing and coughing exercises. He is maintaining good O2 saturations in the mid 90s on 3 L /m per nasal cannula. He did have a temp of 100.4 earlier this morning. He is slightly tachycardic. No tachypnea. Blood and urine cultures are pending. White count 22.5. Hemoglobin 13.2. Creatinine 1.10. His chest x-ray shows the side port outside of the left hemothorax on the chest tube. There is increasing pleural effusion or hemothorax. There is some possible mass effect on the mediastinum as well. He has been seen and evaluated by cardiothoracic services and the plan is for a VATS procedure today. Objective - Vital Signs Vital signs: Vital Signs Temp 98.8 F 08/03/17 10:53 Pulse 92 08/03/17 10:53 Resp 16 08/03/17 10:53 BP 111/73 08/03/17 10:53 Pulse Ox 96 08/03/17 10:53 Intake & Output 08/02/17 08/03/17 08/03/17 18:59 06:59 18:59 Intake Total 920 1220 Output Total 560 2100 Balance 360 -880 Weight 69.9 kg 71.7 kg Intake: IV 800 Sodium Chloride 0.9% 1, 800 000 ml @ 100 mls/hr IV . Q10H [facility] Rx#:[id number] Intake, IV Titration 500 Amount Sodium Chloride 0.9% 1, 500 000 ml @ 100 mls/hr IV . Q10H STA Rx#:[id number] Oral 120 720 Output: Chest Tube Drainage 60 Chest Tube Left Upper Mid 60 -Axillary Chest Urine 500 2100 Other: Voiding Method Toilet Urinal Urinal # Voids 1 # Bowel Movements 0 - Exam GENERAL EXAM: Alert, active, comfortable in no apparent distress. HEAD: Normocephalic. EYES: Normal reaction of pupils, equal size. NOSE: Clear with pink turbinates. THROAT: No erythema or exudates. NECK: No masses, no JVD. CHEST: Left-sided chest tube in place LUNGS: Equal air entry with rhonchi and crackles in the left lung. CVS: S1 and S2 normal with no audible murmur, regular rhythm. ABDOMEN: No hepatosplenomegaly, normal bowel sounds, no guarding or rigidity. SPINE: No scoliosis or deformity SKIN: No rashes CENTRAL NERVOUS SYSTEM: No focal deficits, tone is normal in all 4 extremities. EXTREMITIES: There is no peripheral edema. No clubbing, no cyanosis. Peripheral pulses are intact. - Labs CBC & Chem 7: 08/03/17 06:02 08/03/17 06:02 Labs: Abnormal Lab Results - Last 24 Hours (Table) 08/02/17 08/03/17 08/03/17 Range/Units 15:33 06:02 06:02 WBC 22.5 H (3.8-10.6) k/uL Neutrophils # 19.7 H (1.3-7.7) k/uL Monocytes # 1.5 H (0-1.0) k/uL Sodium 134 L (137-145) mmol/L Glucose 108 H (74-99) mg/dL HDL Cholesterol 21 L (40-60) mg/dL Amylase <30 L (30-110) U/L Lipase 13 L (23-300) U/L Urine Protein Trace H (Negative) Microbiology - Last 24 Hours (Table) 08/02/17 00:30 Blood Culture - Preliminary Blood No Growth after 24 hours 08/02/17 17:18 Urine Culture - Preliminary Urine,Clean Catch Assessment and Plan Assessment: Impression: #1 Acute hypoxic respiratory failure secondary to a large left hydrothorax secondary to trauma. Status post chest tube insertion. Possibly loculated. His chest x-ray shows the side ports of the chest tube outside the pleural space. There is worsening pleural effusion. There is some mass effect on the mediastinum. #2 Left-sided chest wall trauma with multiple rib fractures secondary to a fall down 15 steps on 07/13/2017 #3 Chronic and ongoing tobacco dependence. #4 Chronic neck pain, status post cervical fusion. Plan: The patient was seen and evaluated by Dr. Wright. His chest x-ray was reviewed. It appears the chest tube site ports are outside the cavity. There is increased pleural effusion. There is some mass effect on the mediastinum. Cardiothoracic surgeons have been consulted and the plan for a VATS procedure today. The patient is agreeable. We have added a incentive spirometer to encourage cough and deep breathing exercises. Continue bronchodilators. He is again educated regarding the importance of smoking cessation. Adequate pain control. We will continue to follow make further recommendations based on his clinical status. I, the cosigning physician, performed a history & physical examination of the patient. Lungs sounds have scattered rhonchi more so on the left lung, crackles in the posterior base. Maintaining good O2 saturations in the 90s on 3 L/m per nasal cannula. I discussed the assessment and plan of care with my nurse practitioner, Arielle Nino. I attest to the above consultation as dictated by her.
[2017-08-03] MEDS: MULTIVITAMINS, THERA 1 EACH TAB PO SCH (11:41)
[2017-08-03] MEDS: THIAMINE 100 MG TAB PO SCH ×2 (11:41→18:36)
[2017-08-03] MEDS: FOLIC ACID 1 MG TAB PO SCH (11:41)
[2017-08-03] MEDS ORDERED: LACTATED RINGERS 1,000 ML IV ONE ×3 (15:16→18:07)
[2017-08-03] MEDS ORDERED: ROCURONIUM BROMIDE 10 MG/ML 10 ML VIAL IV ONE (15:19)
[2017-08-03] MEDS ORDERED: GLYCOPYRROLATE 0.2 MG/ML 2 ML VIAL ONE (15:19)
[2017-08-03] MEDS ORDERED: NEOSTIGMINE 1 MG/ML 10 ML VIAL ONE (15:19)
[2017-08-03] MEDS ORDERED: SUCCINYLCHOLINE CHLORIDE 100 MG/5 ML SYR IV ONE (15:19)
[2017-08-03] MEDS ORDERED: fentaNYL (PF) 50 MCG/ML 2 ML AMP ONE (15:19)
[2017-08-03] MEDS ORDERED: LIDOCAINE 1% INJ 10MG/ML (20 ML MDV) ONE (15:19)
[2017-08-03] MEDS ORDERED: PROPOFOL 10 MG/ML 20 ML VIAL IV ONE (15:19)
[2017-08-03] MEDS ORDERED: BUPIVACAINE (PF) 0.25% 30 ML VIAL SQ ONE ×2 (16:05)
--- NOTE | 2017-08-03 16:36 | PN ---
PROGRESS NOTE DATE OF SERVICE: 08/03/2017 This 52-year-old gentleman admitted with left-sided pleural effusion and traumatic chemotherapy is being closely monitored. Patient also has some acute respiratory failure. The patient had a chest tube inserted in the emergency room. Chest x- ray showed suspicious increase in the pleural fluid. Cardiothoracic surgery is planning a possible exploration and VATS procedure also. The fluid could be loculated. PAST MEDICAL HISTORY: Reviewed. REVIEW OF SYSTEMS: CARDIOVASCULAR: No angina. RESPIRATORY: As mentioned. GI: As mentioned earlier. : No dysuria. NERVOUS SYSTEM: No numbness or weakness. CURRENT MEDICATIONS: Reviewed and include: 1. Tylenol 650 q.i.d. 2. Hammond 5 mg. 3. DuoNeb q.i.d. and p.r.n. 4. Flexeril 10 mg daily. 5. Folic acid 1 mg. 6. Heparin 5000 subcu b.i.d. 7. Ativan. 8. P.r.n. medications morphine, Protonix. 9. Vitamin B1. PHYSICAL EXAM: Patient is alert, oriented x2. Pulse is 98, blood pressure 130/70, respiration 18, temperature 100.6, pulse ox 90% on 3 L. HEENT: Conjunctivae normal. Oral mucosa moist. NECK: No jugular venous distention. No carotid bruit. No lymph node enlargement. CARDIOVASCULAR: Breath sounds diminished in the bases. Bilateral scattered rhonchi and expiratory wheezing and crackles. ABDOMEN: Soft, nontender. LEGS: No edema, no swelling. NERVOUS SYSTEM: Higher function as mentioned earlier. Moves all four limbs. No focal deficits. LYMPHATICS: No lymphadenopathy in the neck, axillae, groin. SKIN: No ulcer, rash or bleeding. LAB STUDIES: WBC 9,2, hemoglobin ntd, sodium 134 and amylase 30, lipase 13. ASSESSMENT: 1. Left-sided pleural effusion possible traumatic pneumothorax, status post chest tube drainage with acute hypoxic respiratory failure and minimal mediastinal displacement possibly. 2. Increased WBC, rule out pneumonia and sepsis. 3. Hyponatremia. 4. Increased creatinine with mild acute renal failure possibly multifactorial. 5. History of degenerative joint disease. 6. History of neck pain. 7. History of EtOH. 8. History of cervical fusion. 9. History of nicotine dependence. 10.History of THC. RECOMMENDATIONS AND DISCUSSION: I recommend to continue current management, continue with monitoring and symptomatic treatment. Otherwise at this time I recommend closely follow with cardiothoracic surgery. I would also recommend Infectious Disease evaluation. Continue the broad- spectrum IV antibiotics. Guarded prognosis because of multiple complex medical issues. Further recommendations to follow. MMODL / IJN: [id number] / MTDD
--- NOTE | 2017-08-03 19:03 | OP ---
OPERATIVE REPORT DATE OF PROCEDURE: 08/03/2017 SURGEON: Dr. Ellen Hogue. STATIONS SUPERINTENDENT: Robert Otero. PREOPERATIVE DIAGNOSIS: Left-sided hemothorax, possible empyema, status post multiple rib fractures and chest tube insertion. POSTOPERATIVE DIAGNOSIS: Left-sided empyema. PROCEDURE: Left video thoracoscopic-assisted decortication of the left chest and lung. INDICATION FOR SURGERY: Patient is a 52-year-old gentleman, smoker, alcoholic, who sustained a fall around 3 weeks ago and had several multiple left-sided rib fractures. Patient was readmitted with pain and an x-ray showing effusion on the left side. The chest tube was placed by the emergency room physician and drained about 800 mL of bloody effluent. Patient's x- ray got worse the next day and he has leukocytosis and tachycardia. The patient has been taken today for left-sided evacuation of hemothorax and possible decortication. DESCRIPTION OF THE PROCEDURE: Patient in supine position. General double-lumen endotracheal intubation was performed easily. The position of the ET tube was checked by fiberoptic bronchoscopy. Sequential compression stockings were applied to both lower extremities. The patient was put in a right lateral decubitus position and an axillary roll was placed and all pressure points supported. The position was held by a kern bag. The chest was prepped and draped using ChloraPrep. Ioban was used to cover the skin. Patient received 2 grams of cefazolin intravenously. The chest tube was removed before the prepping. The left lung was deflated. I inserted a 10.5 mm Thora-Port via the previously made incision for the chest tube, which was at the level of the sixth intercostal space anterior axillary line. This was done after breaking some adhesions with digital blunt dissection. I was able to get space to insert instrument via an anterior created port at the level of the fourth intercostal space anteriorly. We proceeded with initial irrigation and suctioning of the left chest. It was obvious that we were dealing with an empyema with fibrinous exudate basically trapping the left lower lobe as well as the lingula and part of the upper lobe. The fissure was dissected and all spaces were developed. The medial space between the pericardium and the lung was also developed as well as the space between the diaphragm and the left lower lobe. Subsequent to that we proceeded with decortication, initially of the involved parietal pleura, and that proceeded very quickly. The specimen of the fluid and the fibrinous exudate was sent for microbiology. Subsequently we proceeded with a very tedious decortication of the visceral pleura of the lower part of the upper lobe, the lingula and the left lower lobe. We achieved a very acceptable pliable and inflatable lung. Thorough irrigation was performed one more time. We had created also a posterior access incision at the level of the posterior axillary line of the sixth intercostal space. I placed a right- angle 32-[place] in the sulcus posteriorly and a straight 32-[place] drain via the previous chest tube site. The anterior access incision was closed in layers. The incision site of the chest tube was a large incision that was closed partially by interrupted Vicryl 2-0 for the subcutaneous tissue and Vicryl 4-0 for the skin. Both chest tubes had been anchored with an Ethibond large stay suture. We had achieved adequate inflation of the lung under control with filling up of the sulcus and the apex showing adequate decortication. The patient was extubated in the operating room and transferred to the recovery room in stable condition. MMODL / IJN: [id number] /
--- NOTE | 2017-08-03 19:24 | XR ---
EXAMINATION: XR chest 1V DATE AND TIME: 08/03/2017 6:32 PM ORDERING PROVIDER: Lisa Garcia CLINICAL INDICATION: post VATS TECHNIQUE: AP upright portable COMPARISON: 08/03/2017 at 7:00 AM DESCRIPTION: A second left chest tube has been placed since the prior study. EKG leads redemonstrated . LEFT HEMITHORAX: Tiny left pneumothorax noted. There are multiple displaced left rib fractures. There is complete silhouetting of the left hemidiaphragm and the left cardiac border consistent with airle ssness throughout the left lower lobe and the lingula. The left upper lung zone is clear. RIGHT HEMITHORAX: No right pneumothorax. The right lung is almost entirely clear, with the exception of a 3 cm zone of consolidative opacity at the right lung base which partially silhouettes the right hemidiaphragm. IMPRESSION: SINCE THE PRIOR STUDY 12 HOURS AGO THERE IS INTERVAL IMPROVEMENT IN THE OVERALL LUNG INFLATION ON THE LEFT.
[2017-08-03] MEDS: DEXTROSE 5%-0.45% NACL 1,000 ML IV SCH (19:50)
[2017-08-03] MEDS: KETOROLAC 30 MG/ML 1 ML VIAL IVP PRN (22:35)
[2017-08-03] MEDS: PIPERACILLIN-TAZOBACTAM 3.375 GM in DEXTROSE/WATER 1 50ML.BAG IVPB SCH (23:52)
[2017-08-04] MEDS: DEXTROSE 5%-0.45% NACL 1,000 ML IV SCH ×2 (06:05→14:20)
[2017-08-04] MEDS: SODIUM CHLORIDE 0.9% 1,000 ML IV SCH (06:06)
[2017-08-04 06:26] LABS: Basophils % (A) 0 %; Eosinophils % (A) 0 %; HCT 37.1 % (39.0-53.0); HGB 11.6 gm/dL (13.0-17.5); Lymphocytes % (A) 5 %; MCH 28.5 pg (25.0-35.0); MCHC 31.3 g/dL (31.0-37.0); Mean Platelet Volume 6.7; Monocytes # (A) 1.2 k/uL (0-1.0); Monocytes % (A) 6 %; Neutrophils # (A) 16.9 k/uL (1.3-7.7); Neutrophils % (A) 87 %; Platelet Count 372 k/uL (150-450); RBC 4.08 m/uL (4.30-5.90); RDW 12.5 % (11.5-15.5); WBC 19.4 k/uL (3.8-10.6)
[2017-08-04 06:38] LABS: ALT 25 U/L (21-72); AST 27 U/L (17-59); Albumin 2.1 g/dL (3.5-5.0); Alkaline Phosphatase 94 U/L (38-126); Anion Gap 6 mmol/L; Blood Urea Nitrogen 13 mg/dL (9-20); Calcium 7.8 mg/dL (8.4-10.2); Carbon Dioxide 24 mmol/L (22-30); Chloride 100 mmol/L (98-107); Glucose 115 mg/dL (74-99); Potassium 3.7 mmol/L (3.5-5.1); Sodium 130 mmol/L (137-145); Total Bilirubin 0.5 mg/dL (0.2-1.3); Total Protein 4.5 g/dL (6.3-8.2)
[2017-08-04] MEDS: KETOROLAC 30 MG/ML 1 ML VIAL IVP PRN ×2 (07:01→14:29)
[2017-08-04] MEDS: IPRATROPIUM-ALBUTEROL 3 ML NEB INHALATION SCH ×4 (07:50→19:49)
[2017-08-04] MEDS: NICOTINE 14MG/24HR PATCH TRANSDERM SCH (08:05)
[2017-08-04] MEDS: PANTOPRAZOLE 40 MG TABLET PO SCH (08:05)
[2017-08-04] MEDS: PIPERACILLIN-TAZOBACTAM 3.375 GM in DEXTROSE/WATER 1 50ML.BAG IVPB SCH ×3 (08:06→23:37)
[2017-08-04] MEDS: VANCOMYCIN 1,250 MG in SODIUM CHLORIDE 0.9% 250 ML IVPB SCH ×2 (08:07→21:53)
[2017-08-04] MEDS: HEPARIN SODIUM,PORCINE 5,000 UNIT/ML 1 ML VIAL SQ SCH ×2 (08:07→21:50)
[2017-08-04] MEDS: THIAMINE 100 MG TAB PO SCH ×2 (08:08→16:29)
[2017-08-04] MEDS: MULTIVITAMINS, THERA 1 EACH TAB PO SCH (08:08)
[2017-08-04] MEDS: FOLIC ACID 1 MG TAB PO SCH (08:08)
[2017-08-04] MEDS ORDERED: CALCIUM GLUCONATE 1,000 MG in SODIUM CHLORIDE 0.9% 100 ML IVPB ONE (09:00)
--- NOTE | 2017-08-04 09:25 | XR ---
EXAMINATION TYPE: AP PORTABLE UPRIGHT CHEST DATED 0648 HOURS, 08/04/2017 DATE OF EXAM: 08/04/2017 HISTORY: post VATS. REFERENCE: Previous study dated 08/03/2017. FINDINGS: There has been a previous ACDF of the lower cervical spine. A left pleural drain is in place. The heart is enlarged. There is a worsening left-sided effusion. There is left basilar atelectasis. T here is mild interstitial change in the right lung. This appears chronic and was present back on 2017. IMPRESSION: 1. WORSENING LEFT-SIDED EFFUSION. 2. WORSENING LEFT BASILAR AIRSPACE DISEASE. 3. CHRONIC INTERSTITIAL CHANGE. Previous study dated 08/03/2017
--- NOTE | 2017-08-04 11:20 | P.PN ---
<Adams Richter - Last Filed: 08/04/17 10:57> Subjective Progress Note Date: 08/04/17 Principal diagnosis: Left-sided empyema, status post left-sided chest wall trauma with multiple rib fractures, remote history of DVT, current tobacco dependence, EtOH abuse, daily marijuana use, chronic neck pain with history of cervical fusion. POD #1 left video thoracoscopic-assisted decortication of the left chest and lung. The patient is currently lying in bed with his head elevated at 45. He is in no acute distress. He reports that he feels somewhat better than he preoperatively. He is alert and oriented 3. He currently reports his pain at 4 out of 10 on the pain scale 2 his left chest chest tube insertion sites. His oxygen saturations are 94% on room air. He is achieving 750 mL on his incentive spirometry with encouragement. Objective - Vital Signs Vital signs: Vital Signs Temp 102.0 F H 08/03/17 18:12 Pulse 94 08/03/17 20:00 Resp 20 08/04/17 08:00 BP 132/74 08/03/17 18:55 Pulse Ox 95 08/03/17 18:55 Intake & Output 08/03/17 08/04/17 08/04/17 18:59 06:59 18:59 Intake Total 2550 2020 400 Output Total 760 1900 555 Balance 1790 120 -155 Intake: IV 2550 1000 Sodium Chloride 0.9% 1, 350 1000 000 ml @ 100 mls/hr IV . Q10H [facility] Rx#:[id number] Intake, IV Titration 300 Amount Piperacillin-Tazobactam 3 50 .375 gm In Dextrose/Water 1 50ml.bag @ 12.5 mls/hr IVPB Q8HR [facility] Rx#: [id number] Vancomycin 1,250 mg In 250 Sodium Chloride 0.9% 250 ml @ 125 mls/hr IVPB Q24H SAME[facility] Rx#:[id number] Oral 720 400 Output: Chest Tube Drainage 20 405 Chest Tube 215 Chest Tube Left Upper Mid 20 190 -Axillary Chest Urine 545 1900 150 Estimated Blood Loss 195 Other: Voiding Method Urinal # Voids 1 1 - Constitutional General appearance: Present: cooperative, no acute distress - EENT ENT: Present: hearing grossly normal - Neck Details: Neck is supple, no JVD or lymphadenopathy. - Respiratory Details: Lung sounds essentially clear to his bilateral upper lobes, few scattered crackles to his right lower lobe, diminished to his left lower lobe. Respirations are symmetrical and nonlabored. Oxygen saturation are 94% on room air. He is achieving 750 mL on his incentive spirometry. Left anterior posterior chest tubes remained to low continuous wall suction -20 cm H2O. Draining thin serosanguineous drainage. No air leak present. Left anterior chest tube with 250 mL output since surgery. Left posterior chest tube with 250 mL output in the last 8 hours, 470 mL output since surgery. - Cardiovascular Details: Regular rhythm and rate. S1 and S2 present, negative for S3, gallop or murmur. Remote telemetry showing normal sinus rhythm heart rate 82. No edema present. Knee-high BIANKA hose and sequential compression devices in place to his bilateral lower extremities. - Gastrointestinal Gastrointestinal Comment(s): Abdomen is soft, nontender and nondistended. Active bowel sounds to all 4 abdominal quadrants. Tolerating oral intake. Passing flatus. - Genitourinary Genitourinary Comment(s): Urine output adequate. Voiding clear yellow urine. 800 mL output in the last 8 hours. - Integumentary Integumentary Comment(s): Left lateral chest incision sites clean and dry and well approximated. No drainage or redness present. Chest tubes remain intact, dressings clean and dry. Skin is warm, dry and pink. - Neurologic Neurologic: Present: CNII-XII intact - Musculoskeletal Musculoskeletal: Present: generalized weakness, strength equal bilaterally - Psychiatric Psychiatric: Present: A&O x's 3, appropriate affect, intact judgment & insight - Labs CBC & Chem 7: 08/04/17 05:54 08/04/17 05:54 Labs: Abnormal Lab Results - Last 24 Hours (Table) 08/04/17 08/04/17 Range/Units 05:54 05:54 WBC 19.4 H (3.8-10.6) k/uL RBC 4.08 L (4.30-5.90) m/uL Hgb 11.6 L (13.0-17.5) gm/dL Hct 37.1 L (39.0-53.0) % Neutrophils # 16.9 H (1.3-7.7) k/uL Monocytes # 1.2 H (0-1.0) k/uL Sodium 130 L (137-145) mmol/L Glucose 115 H (74-99) mg/dL Calcium 7.8 L (8.4-10.2) mg/dL Total Protein 4.5 L (6.3-8.2) g/dL Albumin 2.1 L (3.5-5.0) g/dL Microbiology - Last 24 Hours (Table) 08/03/17 16:00 Gram Stain - Preliminary Chest Tissue Culture - Preliminary 08/03/17 16:00 Gram Stain - Preliminary Thoracic Fluid Body Fluid Culture - Preliminary 08/03/17 16:00 Anaerobic Culture - Preliminary Chest 08/02/17 00:30 Blood Culture - Preliminary Blood No Growth after 48 hours 08/02/17 17:18 Urine Culture - Final Urine,Clean Catch 08/02/17 16:37 Blood Culture - Preliminary Blood No Growth after 24 hours 08/02/17 16:19 Blood Culture - Preliminary Blood No Growth after 24 hours - Imaging and Cardiology Chest x-ray: report reviewed, image reviewed Assessment and Plan (1) Empyema of left pleural space Current Visit: Yes Status: Acute Code(s): J86.9 - PYOTHORAX WITHOUT FISTULA SNOMED Code(s): 65239778 (2) Alcohol abuse Current Visit: Yes Status: Chronic Code(s): F10.10 - ALCOHOL ABUSE, UNCOMPLICATED SNOMED Code(s): 47330460 (3) Fracture of rib of left side Current Visit: Yes Status: Chronic Code(s): S22.32XA - FRACTURE OF ONE RIB, LEFT SIDE, INIT FOR CLOS FX SNOMED Code(s): 74003715 (4) Marijuana use Current Visit: Yes Status: Chronic Code(s): F12.90 - CANNABIS USE, UNSPECIFIED, UNCOMPLICATED SNOMED Code(s): 441564835 (5) Tobacco dependence Current Visit: Yes Status: Chronic Code(s): F17.200 - NICOTINE DEPENDENCE, UNSPECIFIED, UNCOMPLICATED SNOMED Code(s): 16871981 (6) History of DVT (deep vein thrombosis) Current Visit: No Status: Resolved Code(s): Z86.718 - PERSONAL HISTORY OF OTHER VENOUS THROMBOSIS AND EMBOLISM SNOMED Code(s): 972606781 Plan: 1. Continue CIWA protocol. History of EtOH abuse. 2. Encourage use of his incentive spirometry every hour while awake. Pulmonary management per Dr. Kyle's recommendations. 3. Keep left pleural chest tubes to low continuous wall suction today. 4. Monitor accurate I's and O's. 5. GI and DVT prophylaxis in place. 6. Monitor daily labs and chest x-rays. 7. Increase activity as tolerated, out of bed for all meals. Consult physical and occupational therapy. 8. Pain management per when necessary orders. 9. Encourage smoking cessation. Smoking cessation education in place. 10. Calcium gluconate 1 g IV piggyback 1 now. 11. Medical management recommendations per Dr. Banks. 12. Antibiotic management per infectious disease recommendations. 13. More recommendations to follow as patient progresses in his care. Time with Patient: Greater than 30 <Gus Larios - Last Filed: 08/05/17 13:41> Objective - Vital Signs Vital signs: Vital Signs Temp 96.1 F L 08/05/17 04:00 Pulse 84 08/05/17 11:16 Resp 20 08/05/17 04:00 BP 133/84 08/05/17 04:00 Pulse Ox 96 08/05/17 04:00 Intake & Output 08/04/17 08/05/17 08/05/17 18:59 06:59 18:59 Intake Total 400 780 360 Output Total 655 955 Balance -255 -175 360 Weight 73.3 kg Intake: Intake, IV Titration 300 Amount Piperacillin-Tazobactam 3 50 .375 gm In Dextrose/Water 1 50ml.bag @ 12.5 mls/hr IVPB Q8HR [facility] Rx#: [id number] Vancomycin 1,250 mg In 250 Sodium Chloride 0.9% 250 ml @ 125 mls/hr IVPB Q12H [facility] Rx#:[id number] Oral 400 480 360 Output: Chest Tube Drainage 505 0 Chest Tube 265 Chest Tube Left Upper Mid 240 0 -Axillary Chest Drainage 100 Left Lateral Chest 100 Urine 150 855 Other: # Voids 1 1 1 # Bowel Movements 1 - Labs CBC & Chem 7: 08/05/17 06:19 08/05/17 06:19 Labs: Abnormal Lab Results - Last 24 Hours (Table) 08/05/17 08/05/17 Range/Units 06:19 06:19 WBC 16.5 H (3.8-10.6) k/uL RBC 3.69 L (4.30-5.90) m/uL Hgb 10.7 L (13.0-17.5) gm/dL Hct 33.6 L (39.0-53.0) % Neutrophils # 14.0 H (1.3-7.7) k/uL Monocytes # 1.2 H (0-1.0) k/uL Sodium 133 L (137-145) mmol/L Calcium 8.0 L (8.4-10.2) mg/dL AST 71 H (17-59) U/L Total Protein 4.9 L (6.3-8.2) g/dL Albumin 2.3 L (3.5-5.0) g/dL Microbiology - Last 24 Hours (Table) 08/02/17 00:30 Blood Culture - Preliminary Blood No Growth after 72 hours 08/03/17 16:00 Gram Stain - Preliminary Chest Tissue Culture - Preliminary 08/03/17 16:00 Gram Stain - Preliminary Thoracic Fluid Body Fluid Culture - Preliminary 08/02/17 16:37 Blood Culture - Preliminary Blood No Growth after 48 hours 08/02/17 16:19 Blood Culture - Preliminary Blood No Growth after 48 hours Assessment and Plan Plan: The patient was seen and examined. I agree with the above assessment and plan. We will keep the chest tubes to suction today. His pain appears to be well controlled.
--- NOTE | 2017-08-04 12:01 | P.PN ---
Subjective Progress Note Date: 08/04/17 Principal diagnosis: Left sided hemothorax his is a pleasant 52-year-old gentleman who follows with Dr. Johnson as his primary care physician. He has no significant past medical history other than chronic and ongoing tobacco use and chronic neck pain with previous cervical fusion. Approximately 20 days ago on 07/13/2017 he had gotten up in the middle of the night to use the restroom. He was putting on a sock and heading down the stairs when he missed the first step and fell down 15 steps. He was seen at outside emergency room and was told he had 2-3 left-sided broken ribs was treated with pain medications and released. He had continuing ongoing pain and presented here to the emergency room on 07/17/2017 with continued complaints of significant left chest wall pain. No real worsening shortness of breath. No cough or congestion. No hemoptysis. He was having some pain with end expiration. Chest x-ray at that time did not reveal any evidence of pneumothorax, hemothorax or focal pneumonia. He was noted to have displaced rib fractures 5 through 9 on the left. He was continued on [place] and Motrin for the pain. Unfortunately continued to have worsening and ongoing pain and presented here to the emergency room early this morning around midnight. The pain was quite severe and he was quite short of breath. A CT angiogram was performed. Pulmonary embolism was ruled out however there was a significant left-sided hydrothorax with mild tension. His heart and mediastinum were shifted to the right. There are numerous healing posterior left rib fractures. The chest tube was inserted and approximately 650 MLS of bloody fluid was returned. He has had some relief of the pain. Follow-up chest x-ray does reveal some improvement however there is continued fluid possibly loculated. White count 22.9. Hemoglobin 15.4. Creatinine 1.90. He is on vancomycin and Zosyn. He is maintaining good O2 saturations in the upper 90s on 3 L/m per nasal cannula. He is hemodynamically stable. Afebrile. The patient is seen again today 08/03/2017 in follow-up on the selective care unit. He is awake and alert in no acute distress. He is still quite uncomfortable and needs extra encouragement regarding deep breathing and coughing exercises. He is maintaining good O2 saturations in the mid 90s on 3 L /m per nasal cannula. He did have a temp of 100.4 earlier this morning. He is slightly tachycardic. No tachypnea. Blood and urine cultures are pending. White count 22.5. Hemoglobin 13.2. Creatinine 1.10. His chest x-ray shows the side port outside of the left hemothorax on the chest tube. There is increasing pleural effusion or hemothorax. There is some possible mass effect on the mediastinum as well. He has been seen and evaluated by cardiothoracic services and the plan is for a VATS procedure today. Patient was reevaluated today on 07/31/2017, patient is status post VATS and decortication with 2 chest tubes placed at present in the left pleural space. Intraoperatively, the thoracic surgeon felt that the patient may have left- sided empyema. Patient did relatively well, he is back on selective, on antibiotics in the form of vancomycin and Zosyn, feeling better, but the chest x -ray continues to show significant consolidation in the left lower lobe. Patient is using incentive spirometry, however does not seem to be able to expand his left lower lobe. He may eventually require bronchoscopy to evaluate the left lower lobe. Labs were reviewed WBC count is 19.4 hemoglobin is 11.6 basic metabolic profile is relatively normal. Cultures from the left sided empyema are pending. Objective - Vital Signs Vital signs: Vital Signs Temp 102.0 F H 08/03/17 18:12 Pulse 83 08/04/17 11:44 Resp 16 08/04/17 11:34 BP 132/74 08/03/17 18:55 Pulse Ox 95 08/03/17 18:55 Intake & Output 08/03/17 08/04/17 08/04/17 18:59 06:59 18:59 Intake Total 2550 2020 400 Output Total 760 1900 555 Balance 1790 120 -155 Intake: IV 2550 1000 Sodium Chloride 0.9% 1, 350 1000 000 ml @ 100 mls/hr IV . Q10H [facility] Rx#:[id number] Intake, IV Titration 300 Amount Piperacillin-Tazobactam 3 50 .375 gm In Dextrose/Water 1 50ml.bag @ 12.5 mls/hr IVPB Q8HR [facility] Rx#: [id number] Vancomycin 1,250 mg In 250 Sodium Chloride 0.9% 250 ml @ 125 mls/hr IVPB Q24H [facility] Rx#:[id number] Oral 720 400 Output: Chest Tube Drainage 20 405 Chest Tube 215 Chest Tube Left Upper Mid 20 190 -Axillary Chest Urine 545 1900 150 Estimated Blood Loss 195 Other: Voiding Method Urinal # Voids 1 1 - Exam GENERAL EXAM: Alert, active, comfortable in no apparent distress. HEAD: Normocephalic. EYES: Normal reaction of pupils, equal size. NOSE: Clear with pink turbinates. THROAT: No erythema or exudates. NECK: No masses, no JVD. CHEST: 2 left-sided chest tubes were noted, LUNGS: Diminished breath sounds and dullness at the left base noted. No crackles or rhonchi or wheezes. CVS: S1 and S2 normal with no audible murmur, regular rhythm. ABDOMEN: No hepatosplenomegaly, normal bowel sounds, no guarding or rigidity. SPINE: No scoliosis or deformity SKIN: No rashes CENTRAL NERVOUS SYSTEM: No focal deficits, tone is normal in all 4 extremities. EXTREMITIES: There is no peripheral edema. No clubbing, no cyanosis. Peripheral pulses are intact. - Labs CBC & Chem 7: 08/04/17 05:54 08/04/17 05:54 Labs: Abnormal Lab Results - Last 24 Hours (Table) 08/04/17 08/04/17 Range/Units 05:54 05:54 WBC 19.4 H (3.8-10.6) k/uL RBC 4.08 L (4.30-5.90) m/uL Hgb 11.6 L (13.0-17.5) gm/dL Hct 37.1 L (39.0-53.0) % Neutrophils # 16.9 H (1.3-7.7) k/uL Monocytes # 1.2 H (0-1.0) k/uL Sodium 130 L (137-145) mmol/L Glucose 115 H (74-99) mg/dL Calcium 7.8 L (8.4-10.2) mg/dL Total Protein 4.5 L (6.3-8.2) g/dL Albumin 2.1 L (3.5-5.0) g/dL Microbiology - Last 24 Hours (Table) 08/03/17 16:00 Gram Stain - Preliminary Chest Tissue Culture - Preliminary 08/03/17 16:00 Gram Stain - Preliminary Thoracic Fluid Body Fluid Culture - Preliminary 08/03/17 16:00 Anaerobic Culture - Preliminary Chest 08/02/17 00:30 Blood Culture - Preliminary Blood No Growth after 48 hours 08/02/17 17:18 Urine Culture - Final Urine,Clean Catch 08/02/17 16:37 Blood Culture - Preliminary Blood No Growth after 24 hours 08/02/17 16:19 Blood Culture - Preliminary Blood No Growth after 24 hours Assessment and Plan Assessment: #1 Acute hypoxic respiratory failure secondary to a large left sided hemothorax , possible empyema secondary to trauma. Status post chest tube insertion followed by VATS and decortication, and now [address] in place. #2 Left-sided chest wall trauma with multiple rib fractures secondary to a fall down 15 steps on 07/13/2017 #3 Chronic and ongoing tobacco dependence. #4 Chronic neck pain, status post cervical fusion. Recommendation: Continue incentive spirometry, bronchodilators, ambulation, antibiotics, based on the chest x-ray findings early next week, may have to consider bronchoscopy in the left lower lobe continues to be collapse. Time with Patient: Less than 30
[2017-08-04] MEDS: ACETAMINOPHEN TAB 325 MG TAB PO PRN ×2 (14:59→23:36)
--- NOTE | 2017-08-04 22:01 | PN ---
PROGRESS NOTE DATE OF SERVICE: 08/04/2017. INTERVAL HISTORY: This 52-year-old gentleman who was admitted with left-sided pleural effusion with later traumatic pneumothorax also had a chest tube drainage. The patient has some tension. Dr. Hogue performed left video-assisted thoracoscopic decortication of the left chest and lung empyema with a fibrinous exudate basically trapped in the left lower lobe part of the upper lobe was noted. The fibrinous exudate was sent for microbiology. Results are pending at this time. The patient has chest tube drainage at this time. The patient is on broad-spectrum IV antibiotics, a combination of Zosyn and vancomycin. PAST MEDICAL HISTORY: Reviewed. REVIEW OF SYSTEMS: CARDIOVASCULAR: No angina, palpitations. RESPIRATORY: As mentioned earlier. GI: As mentioned earlier. : No dysuria. NERVOUS: No numbness or weakness. CURRENT MEDICATIONS: Reviewed, include: 1. Tylenol 650 every 6 hours p.r.n. 2. Ramona 5 mg every 6 hours. 3. DuoNeb q.i.d. and p.r.n. 4. Flexeril 10 mg p.o. daily. 5. Folic acid 1 mg daily. 6. Heparin 5 subcu b.i.d. 7. Toradol 50 mg IV every 6 hours. 8. Ativan 1 mg q.8h p.r.n. 9. Vancomycin. 10.Morphine sulfate. 11.Habitrol 14 daily. 12.Protonix. 13.Zosyn 3.375 IV every 6 hours. 14.Vitamin B1. 15.Vancomycin. PHYSICAL EXAM: Patient is alert, oriented x3. Pulse 94, blood pressure 130/75, respiration 18 temperature 98.8, T-max 100.4. HEENT: Conjunctivae normal. Oral mucosa moist. NECK: No jugular venous distention. No carotid bruits. No lymph node enlargement. CARDIOVASCULAR: S1, S2 muffled. RESPIRATORY: Breath sounds diminished in the bases. A few scattered rhonchi and crackles. ABDOMEN: Soft, nontender. No mass palpable. LEGS: No edema. No swelling. NERVOUS SYSTEM: Higher functions as mentioned earlier. Moves all 4 limbs. No focal deficits. LYMPHATIC: No lymphadenopathy in neck or axillae. SKIN: No ulcer, rash or bleeding. LABS: WBC 19, hemoglobin is 11.6. Sodium 130. ASSESSMENT: 1. Left-sided pleural effusion with traumatic hemothorax as well as empyema on the left side, status post decortication and chest tube drainage with acute hypoxic respiratory failure with mediastinal placement possibly. 2. Increased WBC with possible sepsis, present on admission. 3. Hyponatremia. 4. Increased creatinine with mild acute renal failure, possibly multifactorial. 5. History of degenerative joint disease. 6. History of neck pain. 7. History of EtOH. 8. History of cervical fusion. 9. History of nicotine dependence. 10.History of THC. RECOMMENDATIONS AND DISCUSSION: Recommend to continue current medical management and continue symptomatic treatment, continue with the broad-spectrum IV antibiotics. Cultures are pending at this time. Otherwise, the fluid studies are also done which showed no significant findings at this time. Final cytology is pending at this time. Again see orders for further details. Prognosis guarded. Pain medications. WA protocol. Guarded prognosis because of multiple complex medical issues and further recommendations to follow. MMODL / SENN: [id number] / GINGER
--- NOTE | 2017-08-04 22:08 | P.CONS ---
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 The patient relates that he has moved into a new home. He was doing some work and follow- up of the latter resulting in significant trauma to the left chest with multiple rib fractures. No several weeks after he is developed a marked increase in her shortness of breath and some pain to his chest. He consequently presented to the emergency center and was admitted. CT angiogram reveal evidence of no pulmonary embolus but the multiple rib fractures 678 and 9 the left chest were noted that are displaced and a significant hydrothorax was noted. The patient had a chest tube inserted into the left pleural space with improvement of his shortness of breath. At the time of the computed tomography scan there was evidence of some tension and displacement of the heart and lung to the right side. This is improved since the chest tube was placed. The patient has developed a fever but is rather unaware of his elevated temperature. He does not believe it is had chills or rigors. In general he feels better than when he presented to Hospital. He however is still not eating very well this time. They've offered a protein supplement and he is not enjoying it. Review of Systems HEENT:Denies headache or acute visual change. Denies sinus or mouth discomforts. Denies neck stiffness or pain. Denies significant oral cavity pain. Denies difficulty on swallowing. Lungs: He is less short of breath, is improved cough no azar sputum production or hemoptysis Cardiovascular: Shortness of breath is improved. Dyspnea on exertion is improved chest pain continues with the rib fractures but no substernal chest pain noted. No orthopnea. Gastrointestinal:Denies nausea, vomiting, diarrhea, constipation, hematemesis, melena, hematochezia. No no significant change of bowel habit noticed. Musculoskeletal: denies significant myalgias or arthralgias. No new joint swelling. Denies new back pain. Skin: Denies new rash or lesions. No new ulcers or wounds are related.. Neuro: Denies headache or visual change. Denies any new onset weakness or difficulty with ambulation. Denies falls or seizures. Psychiatric:Denies anxiety or depression. Endocrine: Denies significant fatigue, denies significant weight loss or weight gain. Past Medical History Past Medical History: Deep Vein Thrombosis (DVT) Additional Past Medical History / Comment(s): neck pain,CERVICAL FUSION, ETOH, History of Any Multi-Drug Resistant Organisms: None Reported Additional Past Surgical History / Comment(s): cervical fusion Past Anesthesia/Blood Transfusion Reactions: No Reported Reaction Past Psychological History: No Psychological Hx Reported Smoking Status: Current every day smoker Past Alcohol Use History: Daily, Heavy Additional Past Alcohol Use History / Comment(s): DRINKS 18 BEERS A DAY. SMOKES A PPD AND SMOKES MARIJUANA DAILY. Past Drug Use History: Marijuana - Past Family History Father Family Medical History: Myocardial Infarction (PR) Medications and Allergies Home Medications and Allergies Comment(s): Current Medications Acetaminophen (Tylenol Tab) 650 mg PO Q6HR PRN PRN Reason: Fever and/ or Mild Pain Last Admin: 08/04/17 14:59 Dose: 650 mg Hydrocodone Bitart/Acetaminophen ([place] 5-325) 1 each PO Q6HR PRN PRN Reason: Mild Pain Last Admin: 08/03/17 09:22 Dose: 1 each Albuterol/Ipratropium (Duoneb 0.5 Mg-3 Mg/3 Ml Soln) 3 ml INHALATION RT-QID [facility] Last Admin: 08/04/17 19:49 Dose: 3 ml Cyclobenzaprine HCl (Flexeril) 10 mg PO DAILY PRN PRN Reason: Muscle Spasm Folic Acid (Folic Acid) 1 mg PO DAILY@1200 [facility] Last Admin: 08/04/17 08:08 Dose: 1 mg Heparin Sodium (Porcine) (Heparin) 5,000 unit SQ Q12HR [facility] Last Admin: 08/04/17 21:50 Dose: 5,000 unit Vancomycin HCl 1,250 mg/ (Sodium Chloride) 250 mls @ 125 mls/hr IVPB Q12H [facility] Last Admin: 08/04/17 21:53 Dose: 125 mls/hr Dextrose/Sodium Chloride (Dextrose 5%-1/2ns Iv Soln) 1,000 mls @ 20 mls/hr IV .Q24H [facility] Last Admin: 08/04/17 14:20 Dose: 20 mls/hr Piperacillin/Tazobactam/ (Dextrose 3.375 gm/ IV Solution) 50 mls @ 12.5 mls/hr IVPB Q8HR [facility] Last Admin: 08/04/17 16:28 Dose: 12.5 mls/hr Ketorolac Tromethamine (Toradol) 15 mg IVP Q6HR PRN PRN Reason: Moderate Pain Stop: 08/07/17 20:50 Last Admin: 08/04/17 14:29 Dose: 15 mg Lorazepam (Ativan) 1 mg IV Q2HR PRN PRN Reason: CIWA 8 or 9 Lorazepam (Ativan) 1 mg IV Q1HR PRN PRN Reason: CIWA 10 to 15 Miscellaneous Information (Vancomycin Trough Due) 0 each MISCELLANE DIRECTED ONE Stop: 08/05/17 07:01 Morphine Sulfate (Morphine Sulfate (Inj)) 4 mg IVP Q4HR PRN PRN Reason: Moderate to Severe Pain Last Admin: 08/03/17 11:33 Dose: 4 mg Multivitamins (Theragran) 1 each PO DAILY@1200 [facility] Last Admin: 08/04/17 08:08 Dose: 1 each Nicotine (Habitrol 14mg/24hr Patch) 1 patch TRANSDERM DAILY [facility] Last Admin: 08/04/17 08:05 Dose: 1 patch Ondansetron HCl (Zofran) 4 mg IVP Q6HR PRN PRN Reason: Nausea And Vomiting Pantoprazole Sodium (Protonix) 40 mg PO AC-BRKFST [facility] Last Admin: 08/04/17 08:05 Dose: 40 mg Temazepam (Restoril) 15 mg PO HS PRN PRN Reason: Insomnia Thiamine HCl (Vitamin B-1) 100 mg PO BID@1200,1700 [facility] Last Admin: 08/04/17 16:29 Dose: 100 mg Home Medications Medication Instructions Recorded Confirmed Type Cyclobenzaprine [Flexeril] 10 mg PO DAILY PRN 07/17/17 08/02/17 History Hydrocodone/Acetaminophen [[place] 1 tab PO Q6HR PRN 07/17/17 08/02/17 History 7.5-325] Ibuprofen [Motrin] 600 mg PO Q8HR PRN #30 tab 07/17/17 08/02/17 Rx Allergies Allergy/AdvReac Type Severity Reaction Status Date / Time No Known Allergies Allergy Verified 08/02/17 08:27 Physical Exam Vitals: Vital Signs Temp Pulse Pulse Resp BP Pulse Ox 08/04/17 20:03 88 08/04/17 19:49 88 08/04/17 16:07 86 08/04/17 16:00 98.9 F 94 18 132/72 94 L 08/04/17 15:53 86 08/04/17 12:00 100.4 F H 96 18 128/78 96 08/04/17 11:44 83 08/04/17 11:34 83 16 08/04/17 08:00 97.3 F L 87 17 131/77 95 08/04/17 00:00 20 Intake and Output 08/04/17 08/04/17 08/04/17 06:59 14:59 22:59 Intake Total 2020 400 Output Total 1350 655 Balance 670 -255 Intake: IV 1000 Sodium Chloride 0.9% 1, 1000 000 ml @ 100 mls/hr IV . Q10H [facility] Rx#:[id number] Intake, IV Titration 300 Amount Piperacillin-Tazobactam 3 50 .375 gm In Dextrose/Water 1 50ml.bag @ 12.5 mls/hr IVPB Q8HR [facility] Rx#: [id number] Vancomycin 1,250 mg In 250 Sodium Chloride 0.9% 250 ml @ 125 mls/hr IVPB Q24H [facility] Rx#:[id number] Oral 720 400 Output: Chest Tube Drainage 505 Chest Tube 265 Chest Tube Left Upper Mid 240 -Axillary Chest Urine 1350 150 Other: # Voids 1 1 52-year-old male of thin build who is in no acute distress at this time HEENT: Anicteric conjunctiva are pink and moist nasal mucosa grossly intact without significant lesions, there is no thrush. Neck: The neck is supple without significant lymphadenopathy or thyromegaly. Lungs: They're symmetrical air entry however there are decreased breath sounds at left base. Bronchial sounds at the base are also noted. There is some bruising noted around the ribs but the chest tubes are in place each draining about 50 mL since this morning shift. Heart: Regular rate and rhythm with an audible S1-S2, no S3 no S4. There is no significant murmur click or rub, PMI was nondisplaced. Abdomen: Positive bowel sounds soft and nontender without palpable masses or organomegaly. There was no guarding or rebound. Extremities: The upper extremities have excellent pulses they are symmetric, no significant petechiae or telangiectasia. No splinter hemorrhages were noted. The lower extremities are free from significant edema. The peripheral pulses were 2+ and symmetric. Neuro: Awake alert oriented to person place and time. There are no acute new gross focal sensory motor deficits. Results CBC & Chem 7: 08/04/17 05:54 08/04/17 05:54 Labs: Abnormal Lab Results - Last 24 Hours (Table) 08/04/17 08/04/17 Range/Units 05:54 05:54 WBC 19.4 H (3.8-10.6) k/uL RBC 4.08 L (4.30-5.90) m/uL Hgb 11.6 L (13.0-17.5) gm/dL Hct 37.1 L (39.0-53.0) % Neutrophils # 16.9 H (1.3-7.7) k/uL Monocytes # 1.2 H (0-1.0) k/uL Sodium 130 L (137-145) mmol/L Glucose 115 H (74-99) mg/dL Calcium 7.8 L (8.4-10.2) mg/dL Total Protein 4.5 L (6.3-8.2) g/dL Albumin 2.1 L (3.5-5.0) g/dL Microbiology - Last 24 Hours (Table) 08/03/17 16:00 Gram Stain - Preliminary Chest Tissue Culture - Preliminary 08/03/17 16:00 Gram Stain - Preliminary Thoracic Fluid Body Fluid Culture - Preliminary 08/02/17 16:37 Blood Culture - Preliminary Blood No Growth after 48 hours 08/02/17 16:19 Blood Culture - Preliminary Blood No Growth after 48 hours 08/03/17 16:00 Anaerobic Culture - Preliminary Chest 08/02/17 00:30 Blood Culture - Preliminary Blood No Growth after 48 hours 08/02/17 17:18 Urine Culture - Final Urine,Clean Catch Laboratory Results WBC 19.4 k/uL (3.8-10.6) H 08/04/17 05:54 RBC 4.08 m/uL (4.30-5.90) L 08/04/17 05:54 Hgb 11.6 gm/dL (13.0-17.5) L 08/04/17 05:54 Hct 37.1 % (39.0-53.0) L 08/04/17 05:54 MCV 91.0 fL (80.0-100.0) 08/04/17 05:54 MCH 28.5 pg (25.0-35.0) 08/04/17 05:54 MCHC 31.3 g/dL (31.0-37.0) 08/04/17 05:54 RDW 12.5 % (11.5-15.5) 08/04/17 05:54 Plt Count 372 k/uL (150-450) 08/04/17 05:54 Neutrophils % 87 % 08/04/17 05:54 Lymphocytes % 5 % 08/04/17 05:54 Monocytes % 6 % 08/04/17 05:54 Eosinophils % 0 % 08/04/17 05:54 Basophils % 0 % 08/04/17 05:54 Neutrophils # 16.9 k/uL (1.3-7.7) H 08/04/17 05:54 Lymphocytes # 1.0 k/uL (1.0-4.8) 08/04/17 05:54 Monocytes # 1.2 k/uL (0-1.0) H 08/04/17 05:54 Eosinophils # 0.0 k/uL (0-0.7) 08/04/17 05:54 Basophils # 0.0 k/uL (0-0.2) 08/04/17 05:54 Hypochromasia Slight 08/02/17 00:30 PT 10.3 sec (9.0-12.0) 08/02/17 00:30 INR 1.1 (<1.2) 08/02/17 00:30 APTT 27.0 sec (22.0-30.0) 08/02/17 00:30 D-Dimer 1.99 mg/L FEU (<0.60) H 08/02/17 00:30 Sodium 130 mmol/L (137-145) L 08/04/17 05:54 Potassium 3.7 mmol/L (3.5-5.1) 08/04/17 05:54 Chloride 100 mmol/L (98-107) 08/04/17 05:54 Carbon Dioxide 24 mmol/L (22-30) 08/04/17 05:54 Anion Gap 6 mmol/L 08/04/17 05:54 BUN 13 mg/dL (9-20) 08/04/17 05:54 Creatinine 0.90 mg/dL (0.66-1.25) 08/04/17 05:54 Est GFR (MDRD) Af Amer >60 (>60 ml/min/1.73 sqM) 08/04/17 05:54 Est GFR (MDRD) Non-Af >60 (>60 ml/min/1.73 sqM) 08/04/17 05:54 Glucose 115 mg/dL (74-99) H 08/04/17 05:54 Plasma Lactic Acid Andrea 1.5 mmol/L (0.7-2.0) 08/02/17 16:19 Calcium 7.8 mg/dL (8.4-10.2) L 08/04/17 05:54 Magnesium 2.2 mg/dL (1.6-2.3) 08/03/17 06:02 Total Bilirubin 0.5 mg/dL (0.2-1.3) 08/04/17 05:54 AST 27 U/L (17-59) 08/04/17 05:54 ALT 25 U/L (21-72) 08/04/17 05:54 Alkaline Phosphatase 94 U/L (38-126) 08/04/17 05:54 Total Creatine Kinase <20 U/L (55-170) L 08/02/17 00:30 CK-MB (CK-2) <0.2 ng/mL (0.0-2.4) 08/02/17 00:30 CK-MB (CK-2) Rel Index 08/02/17 00:30 Troponin I <0.012 ng/mL (0.000-0.034) 08/02/17 00:30 NT-Pro-B Natriuret Pep 219 pg/mL 08/02/17 00:30 Total Protein 4.5 g/dL (6.3-8.2) L 08/04/17 05:54 Albumin 2.1 g/dL (3.5-5.0) L 08/04/17 05:54 Triglycerides 117 mg/dL (<150) 08/03/17 06:02 Cholesterol 84 mg/dL (<200) 08/03/17 06:02 LDL Cholesterol, Calc 40 mg/dL (0-99) 02/23/18 06:02 HDL Cholesterol 21 mg/dL (40-60) L 08/03/17 06:02 Amylase <30 U/L (30-110) L 08/03/17 06:02 Lipase 13 U/L (23-300) L 08/03/17 06:02 Urine Color Yellow 08/02/17 15:33 Urine Appearance Clear (Clear) 08/02/17 15:33 Urine pH 5.5 (5.0-8.0) 08/02/17 15:33 Ur Specific [place] 1.007 (1.001-1.035) 08/02/17 15:33 Urine Protein Trace (Negative) H 08/02/17 15:33 Urine Glucose (UA) Negative (Negative) 08/02/17 15:33 Urine Ketones Negative (Negative) 08/02/17 15:33 Urine Blood Negative (Negative) 08/02/17 15:33 Urine Nitrite Negative (Negative) 08/02/17 15:33 Urine Bilirubin Negative (Negative) 08/02/17 15:33 Urine Urobilinogen <2.0 mg/dL (<2.0) 08/02/17 15:33 Ur Leukocyte Esterase Negative (Negative) 08/02/17 15:33 Microbiology 08/03/17 16:00 Chest Gram Stain - Preliminary 08/03/17 16:00 Chest Tissue Culture - Preliminary 08/03/17 16:00 Thoracic Fluid Gram Stain - Preliminary 08/03/17 16:00 Thoracic Fluid Body Fluid Culture - Preliminary 08/02/17 16:37 Blood Blood Culture - Preliminary No Growth after 48 hours 08/02/17 16:19 Blood Blood Culture - Preliminary No Growth after 48 hours 08/03/17 16:00 Chest Anaerobic Culture - Preliminary 08/02/17 00:30 Blood Blood Culture - Preliminary No Growth after 48 hours 08/02/17 17:18 Urine,Clean Catch Urine Culture - Final CT scan - chest: report reviewed (The hydro-thorax is noted) Assessment and Plan (1) Empyema of left pleural space Narrative/Plan: 52-year-old male with history of prior injury to his cervical spine requiring reconstruction does have a history of alcoholism. Patient relates that he has fallen from a ladder resulting significant trauma to his left chest with fracture of the ribs 678 and 9. He subsequently developed a fluid collection and it was consistent with an empyema consequently a VATS procedure was performed for removal of the infected material and the pleural peel. Surgery went well the patient over postoperative fever. In addition to vancomycin therapy was on Zosyn was added into the patient is feeling better. There are multiple deep specimens are pending and will not alter antimicrobial therapy unless there are further data points from the cultures will help direct antibiotic therapy. He is quite comfortable at this time. He sat up in the chair for at least 3 hours and did well with his meal. The nursing staff will work with the patient to try to get him ambulating a bit too with his chest tubes in place. He does have leukocytosis but is starting to improve with the current antibiotic therapy and his surgical intervention. We'll monitor his response to antibiotics. He is in need of protein supplementation did not like the current supplement and comes with a clear supplement as added to see if he cannot tolerate that better to improve his protein status and his healing. Current Visit: Yes Status: Acute Code(s): J86.9 - PYOTHORAX WITHOUT FISTULA SNOMED Code(s): 14886587 (2) Rib fractures Current Visit: Yes Status: Acute Code(s): S22.39XA - FRACTURE OF ONE RIB, UNSP SIDE, INIT FOR CLOS FX SNOMED Code(s): 48492511 (3) Alcohol abuse Current Visit: Yes Status: Chronic Code(s): F10.10 - ALCOHOL ABUSE, UNCOMPLICATED SNOMED Code(s): 26100351
[2017-08-05] MEDS: PANTOPRAZOLE 40 MG TABLET PO SCH (05:57)
[2017-08-05 06:50] LABS: Basophils # (A) 0.1 k/uL (0-0.2); Basophils % (A) 0 %; Eosinophils # (A) 0.1 k/uL (0-0.7); Eosinophils % (A) 0 %; HCT 33.6 % (39.0-53.0); HGB 10.7 gm/dL (13.0-17.5); Lymphocytes % (A) 6 %; MCHC 31.8 g/dL (31.0-37.0); MCV 91.2 fL (80.0-100.0); Mean Platelet Volume 6.4; Monocytes # (A) 1.2 k/uL (0-1.0); Monocytes % (A) 7 %; Neutrophils % (A) 85 %; Platelet Count 401 k/uL (150-450); RBC 3.69 m/uL (4.30-5.90); RDW 12.5 % (11.5-15.5); WBC 16.5 k/uL (3.8-10.6)
[2017-08-05 06:55] LABS: ALT 59 U/L (21-72); AST 71 U/L (17-59); Albumin 2.3 g/dL (3.5-5.0); Alkaline Phosphatase 115 U/L (38-126); Blood Urea Nitrogen 10 mg/dL (9-20); Carbon Dioxide 27 mmol/L (22-30); Glucose 99 mg/dL (74-99); Total Bilirubin 0.7 mg/dL (0.2-1.3); Total Protein 4.9 g/dL (6.3-8.2)
[2017-08-05] MEDS ORDERED: VANCOMYCIN TROUGH DUE 1 EACH MISC MISCELLANE ONE (07:00)
[2017-08-05 07:14] LABS: Anion Gap 8 mmol/L; Chloride 98 mmol/L (98-107); Potassium 3.8 mmol/L (3.5-5.1); Sodium 133 mmol/L (137-145)
--- NOTE | 2017-08-05 07:21 | XR ---
EXAMINATION TYPE: XR chest 1V DATE OF EXAM: 08/05/2017 HISTORY: post VATS. REFERENCE: Previous study dated 08/04/2017. FINDINGS: There has been a previous ACDF of the lower cervical spine. There are 2 left [address]ins in place. There is a left-sided effusion, unchanged from previous. This is associated with some airspace diseas e also unchanged. Heart size is obscured. The right lung is clear. IMPRESSION: NO SIGNIFICANT INTERVAL CHANGE IN THE APPEARANCE OF THE CHEST.
[2017-08-05] MEDS: IPRATROPIUM-ALBUTEROL 3 ML NEB INHALATION SCH ×4 (08:10→19:57)
[2017-08-05] MEDS: PIPERACILLIN-TAZOBACTAM 3.375 GM in DEXTROSE/WATER 1 50ML.BAG IVPB SCH ×2 (09:05→18:28)
[2017-08-05] MEDS: VANCOMYCIN 1,250 MG in SODIUM CHLORIDE 0.9% 250 ML IVPB SCH ×3 (09:05→22:18)
[2017-08-05] MEDS: HEPARIN SODIUM,PORCINE 5,000 UNIT/ML 1 ML VIAL SQ SCH ×2 (09:06→22:17)
[2017-08-05] MEDS: NICOTINE 14MG/24HR PATCH TRANSDERM SCH (09:07)
[2017-08-05] MEDS: HYDROcodone/APAP 5-325MG 1 EACH TAB PO PRN ×2 (09:16→18:32)
[2017-08-05 10:14] LABS: Phosphorus 3.5 mg/dL (2.5-4.5)
--- NOTE | 2017-08-05 12:02 | P.PN ---
Subjective Progress Note Date: 08/05/17 Principal diagnosis: Left sided hemothorax, possible empyema his is a pleasant 52-year-old gentleman who follows with Dr. Johnson as his primary care physician. He has no significant past medical history other than chronic and ongoing tobacco use and chronic neck pain with previous cervical fusion. Approximately 20 days ago on 07/13/2017 he had gotten up in the middle of the night to use the restroom. He was putting on a sock and heading down the stairs when he missed the first step and fell down 15 steps. He was seen at outside emergency room and was told he had 2-3 left-sided broken ribs was treated with pain medications and released. He had continuing ongoing pain and presented here to the emergency room on 07/17/2017 with continued complaints of significant left chest wall pain. No real worsening shortness of breath. No cough or congestion. No hemoptysis. He was having some pain with end expiration. Chest x-ray at that time did not reveal any evidence of pneumothorax, hemothorax or focal pneumonia. He was noted to have displaced rib fractures 5 through 9 on the left. He was continued on [place] and Motrin for the pain. Unfortunately continued to have worsening and ongoing pain and presented here to the emergency room early this morning around midnight. The pain was quite severe and he was quite short of breath. A CT angiogram was performed. Pulmonary embolism was ruled out however there was a significant left-sided hydrothorax with mild tension. His heart and mediastinum were shifted to the right. There are numerous healing posterior left rib fractures. The chest tube was inserted and approximately 650 MLS of bloody fluid was returned. He has had some relief of the pain. Follow-up chest x-ray does reveal some improvement however there is continued fluid possibly loculated. White count 22.9. Hemoglobin 15.4. Creatinine 1.90. He is on vancomycin and Zosyn. He is maintaining good O2 saturations in the upper 90s on 3 L/m per nasal cannula. He is hemodynamically stable. Afebrile. The patient is seen again today 08/03/2017 in follow-up on the selective care unit. He is awake and alert in no acute distress. He is still quite uncomfortable and needs extra encouragement regarding deep breathing and coughing exercises. He is maintaining good O2 saturations in the mid 90s on 3 L /m per nasal cannula. He did have a temp of 100.4 earlier this morning. He is slightly tachycardic. No tachypnea. Blood and urine cultures are pending. White count 22.5. Hemoglobin 13.2. Creatinine 1.10. His chest x-ray shows the side port outside of the left hemothorax on the chest tube. There is increasing pleural effusion or hemothorax. There is some possible mass effect on the mediastinum as well. He has been seen and evaluated by cardiothoracic services and the plan is for a VATS procedure today. Patient was reevaluated today on 08/04/2017, patient is status post VATS and decortication with 2 chest tubes placed at present in the left pleural space. Intraoperatively, the thoracic surgeon felt that the patient may have left- sided empyema. Patient did relatively well, he is back on selective, on antibiotics in the form of vancomycin and Zosyn, feeling better, but the chest x -ray continues to show significant consolidation in the left lower lobe. Patient is using incentive spirometry, however does not seem to be able to expand his left lower lobe. He may eventually require bronchoscopy to evaluate the left lower lobe. Labs were reviewed WBC count is 19.4 hemoglobin is 11.6 basic metabolic profile is relatively normal. Cultures from the left sided empyema are pending. Patient was reevaluated today on 08/05/2017, doing quite well, relatively asymptomatic. Continues to have [address], pain seems to be fairly well controlled. No cough no wheezing no shortness of breath no fever no chills no hemoptysis. Remains on antibiotics empirically. Patient may have empyema however it is not confirmed based on the cultures yet. Objective - Vital Signs Vital signs: Vital Signs Temp 96.1 F L 08/05/17 04:00 Pulse 84 08/05/17 11:16 Resp 20 08/05/17 04:00 BP 133/84 08/05/17 04:00 Pulse Ox 96 08/05/17 04:00 Intake & Output 08/04/17 08/05/17 08/05/17 18:59 06:59 18:59 Intake Total 400 780 360 Output Total 655 955 Balance -255 -175 360 Weight 73.3 kg Intake: Intake, IV Titration 300 Amount Piperacillin-Tazobactam 3 50 .375 gm In Dextrose/Water 1 50ml.bag @ 12.5 mls/hr IVPB Q8HR [facility] Rx#: [id number] Vancomycin 1,250 mg In 250 Sodium Chloride 0.9% 250 ml @ 125 mls/hr IVPB Q12H [facility] Rx#:[id number] Oral 400 480 360 Output: Chest Tube Drainage 505 0 Chest Tube 265 Chest Tube Left Upper Mid 240 0 -Axillary Chest Drainage 100 Left Lateral Chest 100 Urine 150 855 Other: # Voids 1 1 1 # Bowel Movements 1 - Exam GENERAL EXAM: Alert, active, comfortable in no apparent distress. HEAD: Normocephalic. EYES: Normal reaction of pupils, equal size. NOSE: Clear with pink turbinates. THROAT: No erythema or exudates. NECK: No masses, no JVD. CHEST: 2 left-sided chest tubes were noted, LUNGS: Diminished breath sounds and dullness at the left base noted. No crackles or rhonchi or wheezes. CVS: S1 and S2 normal with no audible murmur, regular rhythm. ABDOMEN: No hepatosplenomegaly, normal bowel sounds, no guarding or rigidity. SPINE: No scoliosis or deformity SKIN: No rashes CENTRAL NERVOUS SYSTEM: No focal deficits, tone is normal in all 4 extremities. EXTREMITIES: There is no peripheral edema. No clubbing, no cyanosis. Peripheral pulses are intact. - Labs CBC & Chem 7: 08/05/17 06:19 08/05/17 06:19 Labs: Abnormal Lab Results - Last 24 Hours (Table) 08/05/17 08/05/17 Range/Units 06:19 06:19 WBC 16.5 H (3.8-10.6) k/uL RBC 3.69 L (4.30-5.90) m/uL Hgb 10.7 L (13.0-17.5) gm/dL Hct 33.6 L (39.0-53.0) % Neutrophils # 14.0 H (1.3-7.7) k/uL Monocytes # 1.2 H (0-1.0) k/uL Sodium 133 L (137-145) mmol/L Calcium 8.0 L (8.4-10.2) mg/dL AST 71 H (17-59) U/L Total Protein 4.9 L (6.3-8.2) g/dL Albumin 2.3 L (3.5-5.0) g/dL Microbiology - Last 24 Hours (Table) 08/02/17 00:30 Blood Culture - Preliminary Blood No Growth after 72 hours 08/03/17 16:00 Gram Stain - Preliminary Chest Tissue Culture - Preliminary 08/03/17 16:00 Gram Stain - Preliminary Thoracic Fluid Body Fluid Culture - Preliminary 08/02/17 16:37 Blood Culture - Preliminary Blood No Growth after 48 hours 08/02/17 16:19 Blood Culture - Preliminary Blood No Growth after 48 hours Assessment and Plan Assessment: #1 Acute hypoxic respiratory failure secondary to a large left sided hemothorax , possible empyema secondary to trauma. Status post chest tube insertion followed by VATS and decortication, and now 2 [address] are in place. #2 Left-sided chest wall trauma with multiple rib fractures secondary to a fall down 15 steps on 07/13/2017 #3 Chronic and ongoing tobacco dependence. #4 Chronic neck pain, status post cervical fusion. Recommendation: Continue incentive spirometry, bronchodilators, ambulation, antibiotics, based on the chest x-ray findings early next week, may have to consider bronchoscopy in the left lower lobe continues to be collapse. Antibiotics as per infectious disease on the case. Time with Patient: Less than 30
--- NOTE | 2017-08-05 13:31 | P.PN ---
<Adams Richter - Last Filed: 08/05/17 13:30> Subjective Progress Note Date: 08/05/17 Principal diagnosis: Left-sided empyema, status post left-sided chest wall trauma with multiple rib fractures, remote history of DVT, current tobacco dependence, EtOH abuse, daily marijuana use, chronic neck pain with history of cervical fusion. POD #2 left video thoracoscopic-assisted decortication of the left chest and lung. The patient is currently lying in bed with his head elevated at 45. He is in no acute distress. He denies any complaints of pain at this time. He is alert and oriented 3. His oxygen saturations are 96% on room air. He is achieving 1000 mL on his incentive spirometry with encouragement. He reports that he did get out of bed for all meals yesterday. Objective - Vital Signs Vital signs: Vital Signs Temp 96.1 F L 08/05/17 04:00 Pulse 84 08/05/17 08:20 Resp 20 08/05/17 04:00 BP 133/84 08/05/17 04:00 Pulse Ox 96 08/05/17 04:00 Intake & Output 08/04/17 08/05/17 08/05/17 18:59 06:59 18:59 Intake Total 400 780 360 Output Total 655 955 Balance -255 -175 360 Weight 73.3 kg Intake: Intake, IV Titration 300 Amount Piperacillin-Tazobactam 3 50 .375 gm In Dextrose/Water 1 50ml.bag @ 12.5 mls/hr IVPB Q8HR [facility] Rx#: [id number] Vancomycin 1,250 mg In 250 Sodium Chloride 0.9% 250 ml @ 125 mls/hr IVPB Q12H [facility] Rx#:[id number] Oral 400 480 360 Output: Chest Tube Drainage 505 0 Chest Tube 265 Chest Tube Left Upper Mid 240 0 -Axillary Chest Drainage 100 Left Lateral Chest 100 Urine 150 855 Other: # Voids 1 1 1 # Bowel Movements 1 - Constitutional General appearance: Present: cooperative, no acute distress, thin - EENT ENT: Present: hearing grossly normal - Neck Details: Neck is supple, no JVD or lymphadenopathy. - Respiratory Details: Lung sounds are essentially clear to his bilateral upper lobes, few scattered crackles to his right lower lobe, diminished to his left lower lobe. Respirations are symmetrical and nonlabored. Oxygen saturation are 96% on room air. He is achieving 1000 mL on his incentive spirometry. His left anterior and posterior chest tubes remained to low continuous wall suction -20 cm H2O. There draining thin serosanguineous drainage. No air leak present. Left anterior chest tube with 160 mL output in the last 24 hours. Left posterior chest tube with 140 mL output the last 24 hours. - Gastrointestinal Gastrointestinal Comment(s): Abdomen is soft, nontender and nondistended. Active bowel sounds all 4 abdominal quadrants. He is tolerating oral intake. Passing flatus. - Genitourinary Genitourinary Comment(s): Urine output is adequate. Clear yellow urine. 580 mL output in the last 8 hours. - Integumentary Integumentary Comment(s): Skin is warm, dry and pink. Left lateral chest incisions clean dry and intact. Chest tube insertion site dressings with scant serosanguineous drainage. - Neurologic Neurologic: Present: CNII-XII intact - Musculoskeletal Musculoskeletal: Present: gait normal, strength equal bilaterally - Psychiatric Psychiatric: Present: A&O x's 3, appropriate affect, intact judgment & insight - Allied health notes Allied health notes reviewed: nursing - Labs CBC & Chem 7: 08/05/17 06:19 08/05/17 06:19 Labs: Abnormal Lab Results - Last 24 Hours (Table) 08/05/17 08/05/17 Range/Units 06:19 06:19 WBC 16.5 H (3.8-10.6) k/uL RBC 3.69 L (4.30-5.90) m/uL Hgb 10.7 L (13.0-17.5) gm/dL Hct 33.6 L (39.0-53.0) % Neutrophils # 14.0 H (1.3-7.7) k/uL Monocytes # 1.2 H (0-1.0) k/uL Sodium 133 L (137-145) mmol/L Calcium 8.0 L (8.4-10.2) mg/dL AST 71 H (17-59) U/L Total Protein 4.9 L (6.3-8.2) g/dL Albumin 2.3 L (3.5-5.0) g/dL Microbiology - Last 24 Hours (Table) 08/02/17 00:30 Blood Culture - Preliminary Blood No Growth after 72 hours 08/03/17 16:00 Gram Stain - Preliminary Chest Tissue Culture - Preliminary 08/03/17 16:00 Gram Stain - Preliminary Thoracic Fluid Body Fluid Culture - Preliminary 08/02/17 16:37 Blood Culture - Preliminary Blood No Growth after 48 hours 08/02/17 16:19 Blood Culture - Preliminary Blood No Growth after 48 hours - Imaging and Cardiology Chest x-ray: report reviewed, image reviewed Assessment and Plan (1) Empyema of left pleural space Current Visit: Yes Status: Acute Code(s): J86.9 - PYOTHORAX WITHOUT FISTULA SNOMED Code(s): 45225443 (2) Alcohol abuse Current Visit: Yes Status: Chronic Code(s): F10.10 - ALCOHOL ABUSE, UNCOMPLICATED SNOMED Code(s): 43092765 (3) Fracture of rib of left side Current Visit: Yes Status: Chronic Code(s): S22.32XA - FRACTURE OF ONE RIB, LEFT SIDE, INIT FOR CLOS FX SNOMED Code(s): 71821886 (4) Marijuana use Current Visit: Yes Status: Chronic Code(s): F12.90 - CANNABIS USE, UNSPECIFIED, UNCOMPLICATED SNOMED Code(s): 002384386 (5) Tobacco dependence Current Visit: Yes Status: Chronic Code(s): F17.200 - NICOTINE DEPENDENCE, UNSPECIFIED, UNCOMPLICATED SNOMED Code(s): 94523542 (6) History of DVT (deep vein thrombosis) Current Visit: No Status: Resolved Code(s): Z86.718 - PERSONAL HISTORY OF OTHER VENOUS THROMBOSIS AND EMBOLISM SNOMED Code(s): 683600592 Plan: 1. Continue CIWA protocol. History of EtOH abuse. 2. Encourage use of his incentive spirometry every hour while awake. Pulmonary management per Dr. Wright's recommendations. 3. Place chest tubes to water seal today. 4. Monitor accurate I's and O's. 5. GI and DVT prophylaxis in place. 6. Monitor daily labs and chest x-rays. 7. Increase activity as tolerated, out of bed for all meals. Physical and occupational therapy following. 8. Pain management per when necessary orders. 9. Encourage smoking cessation. Smoking cessation education in place. 10. Medical management recommendations per Dr. Banks. 11. Antibiotic management per infectious disease recommendations. 12. More recommendations to follow as patient progresses in his care. Time with Patient: Greater than 30 <Gus Larios - Last Filed: 08/05/17 13:40> Objective - Vital Signs Vital signs: Vital Signs Temp 96.1 F L 08/05/17 04:00 Pulse 84 08/05/17 11:16 Resp 20 08/05/17 04:00 BP 133/84 08/05/17 04:00 Pulse Ox 96 08/05/17 04:00 Intake & Output 08/04/17 08/05/17 08/05/17 18:59 06:59 18:59 Intake Total 400 780 360 Output Total 655 955 Balance -255 -175 360 Weight 73.3 kg Intake: Intake, IV Titration 300 Amount Piperacillin-Tazobactam 3 50 .375 gm In Dextrose/Water 1 50ml.bag @ 12.5 mls/hr IVPB Q8HR [facility] Rx#: [id number] Vancomycin 1,250 mg In 250 Sodium Chloride 0.9% 250 ml @ 125 mls/hr IVPB Q12H [facility] Rx#:[id number] Oral 400 480 360 Output: Chest Tube Drainage 505 0 Chest Tube 265 Chest Tube Left Upper Mid 240 0 -Axillary Chest Drainage 100 Left Lateral Chest 100 Urine 150 855 Other: # Voids 1 1 1 # Bowel Movements 1 - Labs CBC & Chem 7: 08/05/17 06:19 08/05/17 06:19 Labs: Abnormal Lab Results - Last 24 Hours (Table) 08/05/17 08/05/17 Range/Units 06:19 06:19 WBC 16.5 H (3.8-10.6) k/uL RBC 3.69 L (4.30-5.90) m/uL Hgb 10.7 L (13.0-17.5) gm/dL Hct 33.6 L (39.0-53.0) % Neutrophils # 14.0 H (1.3-7.7) k/uL Monocytes # 1.2 H (0-1.0) k/uL Sodium 133 L (137-145) mmol/L Calcium 8.0 L (8.4-10.2) mg/dL AST 71 H (17-59) U/L Total Protein 4.9 L (6.3-8.2) g/dL Albumin 2.3 L (3.5-5.0) g/dL Microbiology - Last 24 Hours (Table) 08/02/17 00:30 Blood Culture - Preliminary Blood No Growth after 72 hours 08/03/17 16:00 Gram Stain - Preliminary Chest Tissue Culture - Preliminary 08/03/17 16:00 Gram Stain - Preliminary Thoracic Fluid Body Fluid Culture - Preliminary 08/02/17 16:37 Blood Culture - Preliminary Blood No Growth after 48 hours 08/02/17 16:19 Blood Culture - Preliminary Blood No Growth after 48 hours Assessment and Plan Plan: The patient was seen and examined. I agree with the above assessment and plan. Overall he looks well. There is no air leak noted today. We will place his chest tubes to waterseal and encourage ambulation. We will continue antibiotics as directed by infectious disease.
[2017-08-05] MEDS: KETOROLAC 30 MG/ML 1 ML VIAL IVP PRN (13:45)
[2017-08-05] MEDS: MULTIVITAMINS, THERA 1 EACH TAB PO SCH (15:25)
[2017-08-05] MEDS: FOLIC ACID 1 MG TAB PO SCH (15:25)
[2017-08-05] MEDS: THIAMINE 100 MG TAB PO SCH ×2 (15:25→18:28)
--- NOTE | 2017-08-05 16:38 | P.PN ---
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 The patient relates that he has moved into a new home. He was doing some work and follow- up of the latter resulting in significant trauma to the left chest with multiple rib fractures. No several weeks after he is developed a marked increase in her shortness of breath and some pain to his chest. He consequently presented to the emergency center and was admitted. CT angiogram reveal evidence of no pulmonary embolus but the multiple rib fractures 678 and 9 the left chest were noted that are displaced and a significant hydrothorax was noted. The patient had a chest tube inserted into the left pleural space with improvement of his shortness of breath. At the time of the computed tomography scan there was evidence of some tension and displacement of the heart and lung to the right side. This is improved since the chest tube was placed. The patient has developed a fever but is rather unaware of his elevated temperature. He does not believe it is had chills or rigors. In general he feels better than when he presented to Hospital. He however is still not eating very well this time. They've offered a protein supplement and he is not enjoying it. 08/05/2017 patient is feeling somewhat better today. Pain level is improving. He is unable to sit up in the chair for more time in less discomfort. He believes he is using less pain medicine. He states he is less short of breath. Objective - Vital Signs Vital signs: Vital Signs Temp 97.8 F 08/05/17 12:00 Pulse 86 08/05/17 16:13 Resp 18 08/05/17 12:00 BP 111/69 08/05/17 12:00 Pulse Ox 95 08/05/17 15:59 Intake & Output 08/04/17 08/05/17 08/05/17 18:59 06:59 18:59 Intake Total 400 780 360 Output Total 655 955 Balance -255 -175 360 Weight 73.3 kg Intake: Intake, IV Titration 300 Amount Piperacillin-Tazobactam 3 50 .375 gm In Dextrose/Water 1 50ml.bag @ 12.5 mls/hr IVPB Q8HR [facility] Rx#: [id number] Vancomycin 1,250 mg In 250 Sodium Chloride 0.9% 250 ml @ 125 mls/hr IVPB Q12H [facility] Rx#:[id number] Oral 400 480 360 Output: Chest Tube Drainage 505 0 Chest Tube 265 Chest Tube Left Upper Mid 240 0 -Axillary Chest Drainage 100 Left Lateral Chest 100 Urine 150 855 Other: # Voids 1 1 1 # Bowel Movements 1 - Exam 52-year-old male of thin build who is in no acute distress at this time HEENT: Anicteric conjunctiva are pink and moist nasal mucosa grossly intact without significant lesions, there is no thrush. Neck: The neck is supple without significant lymphadenopathy or thyromegaly. Lungs: They're symmetrical air entry however there are decreased breath sounds at left base. Bronchial sounds at the base are also noted. There is some bruising noted around the ribs but the chest tubes are in place each draining about 50 mL since this morning shift. Heart: Regular rate and rhythm with an audible S1-S2, no S3 no S4. There is no significant murmur click or rub, PMI was nondisplaced. Abdomen: Positive bowel sounds soft and nontender without palpable masses or organomegaly. There was no guarding or rebound. Extremities: The upper extremities have excellent pulses they are symmetric, no significant petechiae or telangiectasia. No splinter hemorrhages were noted. The lower extremities are free from significant edema. The peripheral pulses were 2+ and symmetric. Neuro: Awake alert oriented to person place and time. There are no acute new gross focal sensory motor deficits. - Labs CBC & Chem 7: 08/05/17 06:19 08/05/17 06:19 Labs: Abnormal Lab Results - Last 24 Hours (Table) 08/05/17 08/05/17 Range/Units 06:19 06:19 WBC 16.5 H (3.8-10.6) k/uL RBC 3.69 L (4.30-5.90) m/uL Hgb 10.7 L (13.0-17.5) gm/dL Hct 33.6 L (39.0-53.0) % Neutrophils # 14.0 H (1.3-7.7) k/uL Monocytes # 1.2 H (0-1.0) k/uL Sodium 133 L (137-145) mmol/L Calcium 8.0 L (8.4-10.2) mg/dL AST 71 H (17-59) U/L Total Protein 4.9 L (6.3-8.2) g/dL Albumin 2.3 L (3.5-5.0) g/dL Microbiology - Last 24 Hours (Table) 08/02/17 00:30 Blood Culture - Preliminary Blood No Growth after 72 hours 08/03/17 16:00 Gram Stain - Preliminary Chest Tissue Culture - Preliminary 08/03/17 16:00 Gram Stain - Preliminary Thoracic Fluid Body Fluid Culture - Preliminary 08/02/17 16:37 Blood Culture - Preliminary Blood No Growth after 48 hours 08/02/17 16:19 Blood Culture - Preliminary Blood No Growth after 48 hours Laboratory Results WBC 16.5 k/uL (3.8-10.6) H 08/05/17 06:19 RBC 3.69 m/uL (4.30-5.90) L 08/05/17 06:19 Hgb 10.7 gm/dL (13.0-17.5) L 08/05/17 06:19 Hct 33.6 % (39.0-53.0) L 08/05/17 06:19 MCV 91.2 fL (80.0-100.0) 08/05/17 06:19 MCH 29.0 pg (25.0-35.0) 08/05/17 06:19 MCHC 31.8 g/dL (31.0-37.0) 08/05/17 06:19 RDW 12.5 % (11.5-15.5) 08/05/17 06:19 Plt Count 401 k/uL (150-450) 08/05/17 06:19 Neutrophils % 85 % 08/05/17 06:19 Lymphocytes % 6 % 08/05/17 06:19 Monocytes % 7 % 08/05/17 06:19 Eosinophils % 0 % 08/05/17 06:19 Basophils % 0 % 08/05/17 06:19 Neutrophils # 14.0 k/uL (1.3-7.7) H 08/05/17 06:19 Lymphocytes # 1.0 k/uL (1.0-4.8) 08/05/17 06:19 Monocytes # 1.2 k/uL (0-1.0) H 08/05/17 06:19 Eosinophils # 0.1 k/uL (0-0.7) 08/05/17 06:19 Basophils # 0.1 k/uL (0-0.2) 08/05/17 06:19 Hypochromasia Slight 08/02/17 00:30 PT 10.3 sec (9.0-12.0) 08/02/17 00:30 INR 1.1 (<1.2) 08/02/17 00:30 APTT 27.0 sec (22.0-30.0) 08/02/17 00:30 D-Dimer 1.99 mg/L FEU (<0.60) H 08/02/17 00:30 Sodium 133 mmol/L (137-145) L 08/05/17 06:19 Potassium 3.8 mmol/L (3.5-5.1) 08/05/17 06:19 Chloride 98 mmol/L (98-107) 08/05/17 06:19 Carbon Dioxide 27 mmol/L (22-30) 08/05/17 06:19 Anion Gap 8 mmol/L 08/05/17 06:19 BUN 10 mg/dL (9-20) 08/05/17 06:19 Creatinine 0.80 mg/dL (0.66-1.25) 08/05/17 06:19 Est GFR (MDRD) Af Amer >60 (>60 ml/min/1.73 sqM) 08/05/17 06:19 Est GFR (MDRD) Non-Af >60 (>60 ml/min/1.73 sqM) 08/05/17 06:19 Glucose 99 mg/dL (74-99) 08/05/17 06:19 Plasma Lactic Acid Andrea 1.5 mmol/L (0.7-2.0) 08/02/17 16:19 Calcium 8.0 mg/dL (8.4-10.2) L 08/05/17 06:19 Phosphorus 3.5 mg/dL (2.5-4.5) 08/05/17 06:19 Magnesium 2.0 mg/dL (1.6-2.3) 08/05/17 06:19 Total Bilirubin 0.7 mg/dL (0.2-1.3) 08/05/17 06:19 AST 71 U/L (17-59) H 08/05/17 06:19 ALT 59 U/L (21-72) 08/05/17 06:19 Alkaline Phosphatase 115 U/L (38-126) 08/05/17 06:19 Total Creatine Kinase <20 U/L (55-170) L 08/02/17 00:30 CK-MB (CK-2) <0.2 ng/mL (0.0-2.4) 08/02/17 00:30 CK-MB (CK-2) Rel Index 08/02/17 00:30 Troponin I <0.012 ng/mL (0.000-0.034) 08/02/17 00:30 NT-Pro-B Natriuret Pep 219 pg/mL 08/02/17 00:30 Total Protein 4.9 g/dL (6.3-8.2) L 08/05/17 06:19 Albumin 2.3 g/dL (3.5-5.0) L 08/05/17 06:19 Triglycerides 117 mg/dL (<150) 08/03/17 06:02 Cholesterol 84 mg/dL (<200) 08/03/17 06:02 LDL Cholesterol, Calc 40 mg/dL (0-99) 08/03/17 06:02 HDL Cholesterol 21 mg/dL (40-60) L 08/03/17 06:02 Amylase <30 U/L (30-110) L 08/03/17 06:02 Lipase 13 U/L (23-300) L 08/03/17 06:02 Urine Color Yellow 08/02/17 15:33 Urine Appearance Clear (Clear) 08/02/17 15:33 Urine pH 5.5 (5.0-8.0) 08/02/17 15:33 Ur Specific [place] 1.007 (1.001-1.035) 08/02/17 15:33 Urine Protein Trace (Negative) H 08/02/17 15:33 Urine Glucose (UA) Negative (Negative) 08/02/17 15: Urine Ketones Negative (Negative) 08/02/17 15:33 Urine Blood Negative (Negative) 08/02/17 15:33 Urine Nitrite Negative (Negative) 08/02/17 15: Urine Bilirubin Negative (Negative) 08/02/17 15:33 Urine Urobilinogen <2.0 mg/dL (<2.0) 08/02/17 15:33 Ur Leukocyte Esterase Negative (Negative) 08/02/17 15:33 Vancomycin Trough 8.6 ug/mL 08/05/17 06:19 Assessment and Plan (1) Empyema of left pleural space Narrative/Plan: 52-year-old male with history of prior injury to his cervical spine requiring reconstruction does have a history of alcoholism. Patient relates that he has fallen from a ladder resulting significant trauma to his left chest with fracture of the ribs 678 and 9. He subsequently developed a fluid collection and it was consistent with an empyema consequently a VATS procedure was performed for removal of the infected material and the pleural peel. Surgery went well the patient over postoperative fever. In addition to vancomycin therapy was on Zosyn was added into the patient is feeling better. There are multiple deep specimens are pending and will not alter antimicrobial therapy unless there are further data points from the cultures will help direct antibiotic therapy. He is quite comfortable at this time. He sat up in the chair for at least 3 hours and did well with his meal. The nursing staff will work with the patient to try to get him ambulating a bit too with his chest tubes in place. He does have leukocytosis but is starting to improve with the current antibiotic therapy and his surgical intervention. We'll monitor his response to antibiotics. He is in need of protein supplementation did not like the current supplement and comes with a clear supplement as added to see if he cannot tolerate that better to improve his protein status and his healing. 08/05/2017 the patient is feeling somewhat better today. Flesh short of breath. Tolerating sitting upright better today. Pain is improved. Seems to be okay with the clear liquid supplements. Continue antibiotic therapy the cultures are in process and negative so far. Current Visit: Yes Status: Acute Code(s): J86.9 - PYOTHORAX WITHOUT FISTULA SNOMED Code(s): 07928864 (2) Rib fractures Current Visit: Yes Status: Acute Code(s): S22.39XA - FRACTURE OF ONE RIB, UNSP SIDE, INIT FOR CLOS FX SNOMED Code(s): 42171415 (3) Alcohol abuse Current Visit: Yes Status: Chronic Code(s): F10.10 - ALCOHOL ABUSE, UNCOMPLICATED SNOMED Code(s): 94813254
[2017-08-05] MEDS: DEXTROSE 5%-0.45% NACL 1,000 ML IV SCH (20:08)
[2017-08-05] MEDS: ACETAMINOPHEN TAB 325 MG TAB PO PRN (22:21)
[2017-08-06] MEDS: PIPERACILLIN-TAZOBACTAM 3.375 GM in DEXTROSE/WATER 1 50ML.BAG IVPB SCH ×3 (03:36→16:00)
[2017-08-06 06:39] LABS: ALT 95 U/L (21-72); AST 92 U/L (17-59); Albumin 2.6 g/dL (3.5-5.0); Alkaline Phosphatase 143 U/L (38-126); Anion Gap 8 mmol/L; Blood Urea Nitrogen 12 mg/dL (9-20); Calcium 8.1 mg/dL (8.4-10.2); Carbon Dioxide 30 mmol/L (22-30); Chloride 97 mmol/L (98-107); Glucose 85 mg/dL (74-99); Potassium 3.9 mmol/L (3.5-5.1); Sodium 135 mmol/L (137-145); Total Bilirubin 0.7 mg/dL (0.2-1.3); Total Protein 5.5 g/dL (6.3-8.2)
[2017-08-06 06:41] LABS: Basophils # (A) 0.1 k/uL (0-0.2); Basophils % (A) 0 %; Eosinophils # (A) 0.1 k/uL (0-0.7); Eosinophils % (A) 1 %; HCT 33.3 % (39.0-53.0); HGB 10.5 gm/dL (13.0-17.5); Lymphocytes # (A) 1.1 k/uL (1.0-4.8); Lymphocytes % (A) 7 %; MCH 28.9 pg (25.0-35.0); MCHC 31.4 g/dL (31.0-37.0); MCV 92.1 fL (80.0-100.0); Mean Platelet Volume 6.8; Monocytes # (A) 1.3 k/uL (0-1.0); Monocytes % (A) 8 %; Neutrophils # (A) 13.5 k/uL (1.3-7.7); Neutrophils % (A) 83 %; Platelet Count 452 k/uL (150-450); RBC 3.62 m/uL (4.30-5.90); RDW 12.6 % (11.5-15.5); WBC 16.2 k/uL (3.8-10.6)
[2017-08-06] MEDS: HYDROcodone/APAP 5-325MG 1 EACH TAB PO PRN ×3 (06:53→20:55)
[2017-08-06] MEDS: VANCOMYCIN 1,250 MG in SODIUM CHLORIDE 0.9% 250 ML IVPB SCH ×3 (07:11→20:48)
[2017-08-06] MEDS: PANTOPRAZOLE 40 MG TABLET PO SCH (07:12)
[2017-08-06] MEDS: IPRATROPIUM-ALBUTEROL 3 ML NEB INHALATION SCH ×4 (07:26→19:42)
--- NOTE | 2017-08-06 08:05 | P.PN ---
Subjective Progress Note Date: 08/06/17 Principal diagnosis: Left-sided empyema, status post multiple rib fractures and chest tube insertion in the emergency room. Current tobacco dependence. Current EtOH abuse. Daily marijuana use. Chronic neck pain with history of cervical fusion. Remote history of DVT. POD #3 left video thoracoscopy assisted decortication of the left chest and lung. The patient's currently sitting up in the chair in no acute distress. Does complain of left chest wall pain, states he was trying to take less pain medication. Left-sided chest tubes were placed to waterseal yesterday. Objective - Vital Signs Vital signs: Vital Signs Temp 98.6 F 08/06/17 04:00 Pulse 98 08/06/17 04:00 Resp 20 08/06/17 04:00 BP 143/84 08/06/17 04:00 Pulse Ox 90 L 08/06/17 04:00 Intake & Output 08/05/17 08/06/17 08/06/17 18:59 06:59 18:59 Intake Total 360 120 Output Total 0 610 Balance 360 -490 Weight 72.7 kg Intake: Oral 360 120 Output: Chest Tube Drainage 0 110 Chest Tube 60 Chest Tube Left Upper Mid 0 50 -Axillary Chest Urine 500 Other: Voiding Method Urinal # Voids 1 1 # Bowel Movements 1 1 - Constitutional General appearance: Present: cooperative, no acute distress - Respiratory Details: Lungs sounds diminished bilaterally, left greater than right. Respirations even , nonlabored. Currently on room air with oxygen saturation 90%. Able to achieve 750-1000 mL on his incentive spirometer. Left anterior chest tube to waterseal, 50 mL serous drainage overnight, 75 mL in the last 24 hours. Left posterior chest tube to waterseal, 60 mL serous drainage overnight, 100 mL the last 12 hours. No air leak present. - Cardiovascular Details: S1, S2 present. Regular rate and rhythm, sinus rhythm on telemetry. Palpable peripheral pulses bilaterally. No edema present. No calf pain or tenderness noted. SCDs ordered, present, patient currently has them off. - Gastrointestinal Gastrointestinal Comment(s): Abdomen soft, nontender, nondistended. Active bowel sounds 4 quadrants. Tolerating minimal diet. Positive bowel movement. - Genitourinary Genitourinary Comment(s): Continues to void clear, yellow urine. - Integumentary Integumentary Comment(s): Skin is warm and dry with evidence of good perfusion. Left-sided chest tube insertion sites covered with dry intact dressing. - Neurologic Neurologic: Present: CNII-XII intact - Musculoskeletal Musculoskeletal: Present: gait normal, strength equal bilaterally - Psychiatric Psychiatric: Present: A&O x's 3, appropriate affect, intact judgment & insight - Allied health notes Allied health notes reviewed: nursing - Labs CBC & Chem 7: 08/06/17 05:51 08/06/17 05:51 Labs: Abnormal Lab Results - Last 24 Hours (Table) 08/06/17 08/06/17 Range/Units 05:51 05:51 WBC 16.2 H (3.8-10.6) k/uL RBC 3.62 L (4.30-5.90) m/uL Hgb 10.5 L (13.0-17.5) gm/dL Hct 33.3 L (39.0-53.0) % Plt Count 452 H (150-450) k/uL Neutrophils # 13.5 H (1.3-7.7) k/uL Monocytes # 1.3 H (0-1.0) k/uL Sodium 135 L (137-145) mmol/L Chloride 97 L (98-107) mmol/L Calcium 8.1 L (8.4-10.2) mg/dL AST 92 H (17-59) U/L ALT 95 H (21-72) U/L Alkaline Phosphatase 143 H (38-126) U/L Total Protein 5.5 L (6.3-8.2) g/dL Albumin 2.6 L (3.5-5.0) g/dL Microbiology - Last 24 Hours (Table) 08/02/17 00:30 Blood Culture - Preliminary Blood No Growth after 96 hours 08/03/17 16:00 Anaerobic Culture - Preliminary Chest 08/03/17 16:00 Gram Stain - Preliminary Chest Tissue Culture - Preliminary 08/02/17 16:37 Blood Culture - Preliminary Blood No Growth after 72 hours 08/03/17 16:00 Gram Stain - Preliminary Thoracic Fluid Body Fluid Culture - Preliminary 08/02/17 16:19 Blood Culture - Preliminary Blood No Growth after 72 hours - Imaging and Cardiology Chest x-ray: image reviewed Assessment and Plan (1) Tobacco dependence Current Visit: Yes Status: Chronic Code(s): F17.200 - NICOTINE DEPENDENCE, UNSPECIFIED, UNCOMPLICATED SNOMED Code(s): 27193012 (2) Alcohol abuse Current Visit: Yes Status: Chronic Code(s): F10.10 - ALCOHOL ABUSE, UNCOMPLICATED SNOMED Code(s): 75685327 (3) Marijuana use Current Visit: Yes Status: Chronic Code(s): F12.90 - CANNABIS USE, UNSPECIFIED, UNCOMPLICATED SNOMED Code(s): 173468619 (4) History of DVT (deep vein thrombosis) Current Visit: No Status: Resolved Code(s): Z86.718 - PERSONAL HISTORY OF OTHER VENOUS THROMBOSIS AND EMBOLISM SNOMED Code(s): 701633848 (5) Chest pain Current Visit: Yes Status: Chronic Code(s): R07.9 - CHEST PAIN, UNSPECIFIED SNOMED Code(s): 02948598 (6) Fracture of rib of left side Current Visit: Yes Status: Chronic Code(s): S22.32XA - FRACTURE OF ONE RIB, LEFT SIDE, INIT FOR CLOS FX SNOMED Code(s): 41621352 (7) Hydropneumothorax Current Visit: Yes Status: Acute Code(s): J94.8 - OTHER SPECIFIED PLEURAL CONDITIONS SNOMED Code(s): 18730699 Plan: 1. Continue chest tubes to water seal. Likely will discontinue later today versus tomorrow. 2. Encourage incentive spirometry use 10 times every hour while awake. Encourage smoking cessation. 3. Will monitor daily chest x-rays and labs. Pleural fluid cultures pending. 4. Continue Cipro protocol. Encourage alcohol cessation. 5. GI/DVT prophylaxis. 6. Antibiotic management per infectious disease recommendations. 7. Increase activity, ambulate in hallway. PT/OT following. 8. Continue pain management per current orders. 9. Medical management per primary care services. 10. More recommendations to follow. Time with Patient: Greater than 30
--- NOTE | 2017-08-06 08:16 | XR ---
EXAMINATION TYPE: XR chest 1V portable DATE OF EXAM: 08/06/2017 COMPARISON: 08/05/2017 INDICATION: Post VATS decortication TECHNIQUE: Single frontal view of the chest is obtained. FINDINGS: The heart size is prominent. The pulmonary vasculature is normal. There is opacification over the left lung base. There are two stable left-sided chest tubes are prese nt. There are rib fractures of the 5th 6th,7th,8th and likely ninth ribs. No pneumothorax is evident. Diaphragm is silhouetted. IMPRESSION: 1. Stable appearance of the chest. 2. Chest tubes remain in position. 3. Opacification left lung base. 4. Multiple left-sided rib fractures
--- NOTE | 2017-08-06 08:43 | PN ---
PROGRESS NOTE DATE OF SERVICE: 08/05/2017 This 52-year-old gentleman who was admitted with left-sided pleural effusion and traumatic hemothorax and also possible empyema is being closely monitored. The cultures are not growing any organisms so far. No chest pain or palpitations. No fever. Patient has got a chest tube. PHYSICAL EXAM: On exam, alert and oriented x3. Pulse 82, blood pressure 127/73, respiration 20, temperature 98.4, pulse ox 92% on room air. HEENT: Conjunctivae normal. NECK: No jugular venous distention. CARDIOVASCULAR: S1 ans S2 muffled. RESPIRATORY: Breath sounds diminished at the bases. A few scattered rhonchi and crackles. Abdomen is soft, nontender. LEGS: No edema, no swelling. NERVOUS SYSTEM: No focal deficits. LABS: WBC 16.5, hemoglobin 10.7. ASSESSMENT: 1. Left-sided pleural effusion with traumatic hemothorax as well as possible empyema on the left side, status post decortication and chest tube drainage with acute hypoxic respiratory failure with mediastinal displacement on admission. 2. Increased WBC, possibly sepsis, present on admission. 3. Hyponatremia. 4. Increased creatinine with mild acute renal failure, possibly multifactorial. 5. History of degenerative joint disease. 6. History of neck pain. 7. History EtOH. 8. History of cervical fusion. 9. History of nicotine dependence. 10.History of THC. RECOMMENDATIONS AND DISCUSSION: Recommend to continue current medications. Continued to monitor. Continue symptomatic treatment. Otherwise I would recommend broad-spectrum IV antibiotics. The chest tube drainage. Closely follow with multiple consultants as mentioned earlier. Prognosis guarded. Further recommendations to follow. MMODL / IJN: [id number] /
[2017-08-06] MEDS: HEPARIN SODIUM,PORCINE 5,000 UNIT/ML 1 ML VIAL SQ SCH ×2 (09:26→20:48)
[2017-08-06] MEDS: KETOROLAC 30 MG/ML 1 ML VIAL IVP PRN (09:27)
[2017-08-06] MEDS: NICOTINE 14MG/24HR PATCH TRANSDERM SCH (09:27)
[2017-08-06 10:01] VITALS: BMI 25.1
[2017-08-06] MEDS ORDERED: MORPHINE ORAL SOLN 10 MG/5 ML CUP PO PRN (13:34)
--- NOTE | 2017-08-06 14:15 | P.PN ---
Subjective Progress Note Date: 08/06/17 Principal diagnosis: Left sided hemothorax, possibly empyema This is a pleasant 52-year-old gentleman who follows with Dr. Johnson as his primary care physician. He has no significant past medical history other than chronic and ongoing tobacco use and chronic neck pain with previous cervical fusion. Approximately 20 days ago on 07/13/2017 he had gotten up in the middle of the night to use the restroom. He was putting on a sock and heading down the stairs when he missed the first step and fell down 15 steps. He was seen at outside emergency room and was told he had 2-3 left-sided broken ribs was treated with pain medications and released. He had continuing ongoing pain and presented here to the emergency room on 07/17/2017 with continued complaints of significant left chest wall pain. No real worsening shortness of breath. No cough or congestion. No hemoptysis. He was having some pain with end expiration. Chest x-ray at that time did not reveal any evidence of pneumothorax, hemothorax or focal pneumonia. He was noted to have displaced rib fractures 5 through 9 on the left. He was continued on [place] and Motrin for the pain. Unfortunately continued to have worsening and ongoing pain and presented here to the emergency room early this morning around midnight. The pain was quite severe and he was quite short of breath. A CT angiogram was performed. Pulmonary embolism was ruled out however there was a significant left-sided hydrothorax with mild tension. His heart and mediastinum were shifted to the right. There are numerous healing posterior left rib fractures. The chest tube was inserted and approximately 650 MLS of bloody fluid was returned. He has had some relief of the pain. Follow-up chest x-ray does reveal some improvement however there is continued fluid possibly loculated. White count 22.9. Hemoglobin 15.4. Creatinine 1.90. He is on vancomycin and Zosyn. He is maintaining good O2 saturations in the upper 90s on 3 L/m per nasal cannula. He is hemodynamically stable. Afebrile. The patient is seen again today 08/03/2017 in follow-up on the selective care unit. He is awake and alert in no acute distress. He is still quite uncomfortable and needs extra encouragement regarding deep breathing and coughing exercises. He is maintaining good O2 saturations in the mid 90s on 3 L /m per nasal cannula. He did have a temp of 100.4 earlier this morning. He is slightly tachycardic. No tachypnea. Blood and urine cultures are pending. White count 22.5. Hemoglobin 13.2. Creatinine 1.10. His chest x-ray shows the side port outside of the left hemothorax on the chest tube. There is increasing pleural effusion or hemothorax. There is some possible mass effect on the mediastinum as well. He has been seen and evaluated by cardiothoracic services and the plan is for a VATS procedure today. Patient was reevaluated today on 08/04/2017, patient is status post VATS and decortication with 2 chest tubes placed at present in the left pleural space. Intraoperatively, the thoracic surgeon felt that the patient may have left- sided empyema. Patient did relatively well, he is back on selective, on antibiotics in the form of vancomycin and Zosyn, feeling better, but the chest x -ray continues to show significant consolidation in the left lower lobe. Patient is using incentive spirometry, however does not seem to be able to expand his left lower lobe. He may eventually require bronchoscopy to evaluate the left lower lobe. Labs were reviewed WBC count is 19.4 hemoglobin is 11.6 basic metabolic profile is relatively normal. Cultures from the left sided empyema are pending. Patient was reevaluated today on 08/05/2017, doing quite well, relatively asymptomatic. Continues to have [address], pain seems to be fairly well controlled. No cough no wheezing no shortness of breath no fever no chills no hemoptysis. Remains on antibiotics empirically. Patient may have empyema however it is not confirmed based on the cultures yet. On 08/06/2017 patient seen in follow-up. He still has the 2 left-sided chest tubes in place, he is status post left video assisted thoracoscopy and decortication of the left chest and lung. His left chest pain is reasonably controlled on pain medications. He is compliant with his incentive spirometry, he is able to achieve 1250 on it today. His chest tubes were placed to waterseal yesterday. Lung sounds are diminished bilaterally, more so over left lower lobe. He denies any acute respiratory distress. There is small amount of serosanguineous drainage from both chest tubes. No air leak was present. Objective - Vital Signs Vital signs: Vital Signs Temp 97.4 F L 08/06/17 08:00 Pulse 90 08/06/17 08:00 Resp 18 08/06/17 08:00 BP 136/80 08/06/17 08:00 Pulse Ox 89 L 08/06/17 08:00 Intake & Output 08/05/17 08/06/17 08/06/17 18:59 06:59 18:59 Intake Total 360 1810 920 Output Total 0 1110 350 Balance 360 700 570 Weight 72.7 kg 72.7 kg Intake: Intake, IV Titration 790 Amount Dextrose 5%-0.45% NaCl 1, 240 000 ml @ 20 mls/hr IV . Q24H [facility] Rx#:[id number] Piperacillin-Tazobactam 3 50 .375 gm In Dextrose/Water 1 50ml.bag @ 12.5 mls/hr IVPB Q8HR [facility] Rx#: [id number] Vancomycin 1,250 mg In 500 Sodium Chloride 0.9% 250 ml @ 125 mls/hr IVPB Q8H [facility] Rx#:[id number] Oral 360 1020 920 Output: Chest Tube Drainage 0 110 Chest Tube 60 Chest Tube Left Upper Mid 0 50 -Axillary Chest Urine 1000 350 Other: Voiding Method Urinal # Voids 1 1 1 # Bowel Movements 1 1 - Exam GENERAL EXAM: Alert, active, comfortable in no apparent distress. HEAD: Normocephalic. EYES: Normal reaction of pupils, equal size. NOSE: Clear with pink turbinates. THROAT: No erythema or exudates. NECK: No masses, no JVD. CHEST: 2 left-sided chest tubes were noted, both placed to waterseal, there is small amount of serosanguineous drainage draining from both of them LUNGS: Diminished breath sounds and dullness at the left base noted. No crackles or rhonchi or wheezes. CVS: S1 and S2 normal with no audible murmur, regular rhythm. ABDOMEN: No hepatosplenomegaly, normal bowel sounds, no guarding or rigidity. SPINE: No scoliosis or deformity SKIN: No rashes CENTRAL NERVOUS SYSTEM: No focal deficits, tone is normal in all 4 extremities. EXTREMITIES: There is no peripheral edema. No clubbing, no cyanosis. Peripheral pulses are intact. - Labs CBC & Chem 7: 08/06/17 05:51 08/06/17 05:51 Labs: Abnormal Lab Results - Last 24 Hours (Table) 08/06/17 08/06/17 Range/Units 05:51 05:51 WBC 16.2 H (3.8-10.6) k/uL RBC 3.62 L (4.30-5.90) m/uL Hgb 10.5 L (13.0-17.5) gm/dL Hct 33.3 L (39.0-53.0) % Plt Count 452 H (150-450) k/uL Neutrophils # 13.5 H (1.3-7.7) k/uL Monocytes # 1.3 H (0-1.0) k/uL Sodium 135 L (137-145) mmol/L Chloride 97 L (98-107) mmol/L Calcium 8.1 L (8.4-10.2) mg/dL AST 92 H (17-59) U/L ALT 95 H (21-72) U/L Alkaline Phosphatase 143 H (38-126) U/L Total Protein 5.5 L (6.3-8.2) g/dL Albumin 2.6 L (3.5-5.0) g/dL Microbiology - Last 24 Hours (Table) 08/02/17 00:30 Blood Culture - Preliminary Blood No Growth after 96 hours 08/03/17 16:00 Anaerobic Culture - Preliminary Chest 08/03/17 16:00 Gram Stain - Preliminary Chest Tissue Culture - Preliminary 08/02/17 16:37 Blood Culture - Preliminary Blood No Growth after 72 hours 08/03/17 16:00 Gram Stain - Preliminary Thoracic Fluid Body Fluid Culture - Preliminary 08/02/17 16:19 Blood Culture - Preliminary Blood No Growth after 72 hours Assessment and Plan Plan: Assessment: #1 Acute hypoxic respiratory failure secondary to a large left sided hemothorax , possible empyema secondary to trauma. Status post chest tube insertion followed by VATS and decortication, and now 2 [address] are in place. #2 Left-sided chest wall trauma with multiple rib fractures secondary to a fall down 15 steps on 07/13/2017 #3 Chronic and ongoing tobacco dependence. #4 Chronic neck pain, status post cervical fusion. Recommendation: Continue current plan of care, continue incentive spirometry, bronchodilators, ambulation, antibiotics, based on the chest x-ray findings early next week, may have to consider bronchoscopy in the left lower lobe continues to be collapse. Antibiotics as per infectious disease on the case. I performed a history & physical examination of the patient and discussed their management with my nurse practitioner, Radha Valentin. I reviewed the nurse practitioner's note and agree with the documented findings and plan of care. Lung sounds are as a for diminished air entry over left lower lobe, dullness to percussion present. The findings and the impression was discussed with the patient. I attest to the documentation by the nurse practitioner. Time with Patient: Less than 30
[2017-08-06] MEDS: MULTIVITAMINS, THERA 1 EACH TAB PO SCH (15:48)
[2017-08-06] MEDS: THIAMINE 100 MG TAB PO SCH ×2 (15:48→18:33)
[2017-08-06] MEDS: FOLIC ACID 1 MG TAB PO SCH (15:48)
--- NOTE | 2017-08-06 21:40 | PN ---
PROGRESS NOTE DATE OF SERVICE: 08/06/2017 This 52-year-old gentleman was admitted with left side is being closely monitored. No chest pain. No palpitations. No fever. Chest tube drainage is present. EXAM: Alert and oriented times three. Pulse 88. Blood pressure 115/59, respiration 18 , temperature 98.1, pulse ox 94% on room air. HEENT: Conjunctivae normal. Neck : No jugular venous distention. Cardiovascular: S1, S2. Respiratory: Breath sounds diminished in the bases. A few scattered rhonchi. No crackles. Abdomen is soft , nontender. Legs are no edema. Central nervous system: No focal deficits. LABORATORY DATA: WBC 16.2, hemoglobin 10.5. LFTs are noted. ASSESSMENT: 1. Left-sided pleural effusion atraumatic pneumothorax as well as possible empyema on the left side, status post decortication and chest tube drainage with acute hypoxic respiratory failure with present on admission. 2. Increased WBC possibly sepsis present on admission. 3. Hyponatremia. 4. Increased creatinine with acute renal failure possibly multifactorial, present on admission. 5. History of degenerative joint disease. 6. History of neck pain. 7. History EtOH. 8. History of cervical fusion. 9. History of nicotine dependence. 10.History of THC. RECOMMENDATIONS AND DISCUSSION: Recommend to continue current medications, management and symptomatic treatment. Otherwise monitor closely. Repeat labs. Continue the antibiotics and follow closely. Guarded prognosis because of multiple complex medical issues and further recommendations to follow. MMODL / IJN: [id number] / MTDD
--- NOTE | 2017-08-06 21:50 | P.PN ---
Subjective Progress Note Date: 08/06/17 Principal diagnosis: Trauma with fall off ladder 52-year-old male with a complex past medical history including a history of degenerative joint disease to his neck requiring surgical fusion he has underlying coronary artery disease and history of alcoholism. The patient relates that he has moved into a new home. He was doing some work and follow- up of the latter resulting in significant trauma to the left chest with multiple rib fractures. No several weeks after he is developed a marked increase in her shortness of breath and some pain to his chest. He consequently presented to the emergency center and was admitted. CT angiogram reveal evidence of no pulmonary embolus but the multiple rib fractures 678 and 9 the left chest were noted that are displaced and a significant hydrothorax was noted. The patient had a chest tube inserted into the left pleural space with improvement of his shortness of breath. At the time of the computed tomography scan there was evidence of some tension and displacement of the heart and lung to the right side. This is improved since the chest tube was placed. The patient has developed a fever but is rather unaware of his elevated temperature. He does not believe it is had chills or rigors. In general he feels better than when he presented to Hospital. He however is still not eating very well this time. They've offered a protein supplement and he is not enjoying it. 08/05/2017 patient is feeling somewhat better today. Pain level is improving. He is unable to sit up in the chair for more time in less discomfort. He believes he is using less pain medicine. He states he is less short of breath. 08/06/2017 patient is showing further improvement. Chest tube is to water seal. He's been up and walking in the cline. Follow-up chest x-rays plan in the morning a potential chest tube removal at this time. Pain is better controlled. Shortness of breath is improved. Attempting to utilize for the protein supplements to assist is healing. Denies fever chills or rigors. Objective - Vital Signs Vital signs: Vital Signs Temp 99.4 F 08/06/17 20:00 Pulse 88 08/06/17 20:00 Resp 20 08/06/17 20:00 BP 114/77 08/06/17 20:00 Pulse Ox 97 08/06/17 20:00 Intake & Output 08/06/17 08/06/17 08/07/17 06:59 18:59 06:59 Intake Total 1810 2120 Output Total 1110 800 Balance 700 1320 Weight 72.7 kg 72.7 kg Intake: Intake, IV Titration 790 Amount Dextrose 5%-0.45% NaCl 1, 240 000 ml @ 20 mls/hr IV . Q24H [facility] Rx#:[id number] Piperacillin-Tazobactam 3 50 .375 gm In Dextrose/Water 1 50ml.bag @ 12.5 mls/hr IVPB Q8HR [facility] Rx#: [id number] Vancomycin 1,250 mg In 500 Sodium Chloride 0.9% 250 ml @ 125 mls/hr IVPB Q8H [facility] Rx#:[id number] Oral 1020 2120 Output: Chest Tube Drainage 110 Chest Tube 60 Chest Tube Left Upper Mid 50 -Axillary Chest Urine 1000 800 Other: Voiding Method Urinal Urinal # Voids 1 1 # Bowel Movements 1 - Exam 52-year-old male of thin build who is in no acute distress at this time HEENT: Anicteric conjunctiva are pink and moist nasal mucosa grossly intact without significant lesions, there is no thrush. Neck: The neck is supple without significant lymphadenopathy or thyromegaly. Lungs: They're symmetrical air entry however there are decreased breath sounds at left base. Bronchial sounds at the base are also noted. There is some bruising noted around the ribs but the chest tubes are in place each draining about 50 mL since this morning shift. Heart: Regular rate and rhythm with an audible S1-S2, no S3 no S4. There is no significant murmur click or rub, PMI was nondisplaced. Abdomen: Positive bowel sounds soft and nontender without palpable masses or organomegaly. There was no guarding or rebound. Extremities: The upper extremities have excellent pulses they are symmetric, no significant petechiae or telangiectasia. No splinter hemorrhages were noted. The lower extremities are free from significant edema. The peripheral pulses were 2+ and symmetric. Neuro: Awake alert oriented to person place and time. There are no acute new gross focal sensory motor deficits. - Labs CBC & Chem 7: 08/06/17 05:51 08/06/17 05:51 Labs: Abnormal Lab Results - Last 24 Hours (Table) 08/06/17 08/06/17 Range/Units 05:51 05:51 WBC 16.2 H (3.8-10.6) k/uL RBC 3.62 L (4.30-5.90) m/uL Hgb 10.5 L (13.0-17.5) gm/dL Hct 33.3 L (39.0-53.0) % Plt Count 452 H (150-450) k/uL Neutrophils # 13.5 H (1.3-7.7) k/uL Monocytes # 1.3 H (0-1.0) k/uL Sodium 135 L (137-145) mmol/L Chloride 97 L (98-107) mmol/L Calcium 8.1 L (8.4-10.2) mg/dL AST 92 H (17-59) U/L ALT 95 H (21-72) U/L Alkaline Phosphatase 143 H (38-126) U/L Total Protein 5.5 L (6.3-8.2) g/dL Albumin 2.6 L (3.5-5.0) g/dL Microbiology - Last 24 Hours (Table) 08/03/17 16:00 Gram Stain - Preliminary Thoracic Fluid Body Fluid Culture - Preliminary 08/02/17 16:37 Blood Culture - Preliminary Blood No Growth after 96 hours 08/02/17 16:19 Blood Culture - Preliminary Blood No Growth after 96 hours 08/03/17 16:00 Gram Stain - Preliminary Chest Tissue Culture - Preliminary 08/02/17 00:30 Blood Culture - Preliminary Blood No Growth after 96 hours 08/03/17 16:00 Anaerobic Culture - Preliminary Chest Laboratory Results WBC 16.2 k/uL (3.8-10.6) H 08/06/17 05:51 RBC 3.62 m/uL (4.30-5.90) L 08/06/17 05:51 Hgb 10.5 gm/dL (13.0-17.5) L 08/06/17 05:51 Hct 33.3 % (39.0-53.0) L 08/06/17 05:51 MCV 92.1 fL (80.0-100.0) 08/06/17 05:51 MCH 28.9 pg (25.0-35.0) 08/06/17 05:51 MCHC 31.4 g/dL (31.0-37.0) 08/06/17 05:51 RDW 12.6 % (11.5-15.5) 08/06/17 05:51 Plt Count 452 k/uL (150-450) H 08/06/17 05:51 Neutrophils % 83 % 08/06/17 05:51 Lymphocytes % 7 % 08/06/17 05:51 Monocytes % 8 % 08/06/17 05:51 Eosinophils % 1 % 08/06/17 05:51 Basophils % 0 % 08/06/17 05:51 Neutrophils # 13.5 k/uL (1.3-7.7) H 08/06/17 05:51 Lymphocytes # 1.1 k/uL (1.0-4.8) 08/06/17 05:51 Monocytes # 1.3 k/uL (0-1.0) H 08/06/17 05:51 Eosinophils # 0.1 k/uL (0-0.7) 08/06/17 05:51 Basophils # 0.1 k/uL (0-0.2) 08/06/17 05:51 Hypochromasia Slight 08/02/17 00:30 PT 10.3 sec (9.0-12.0) 08/02/17 00:30 INR 1.1 (<1.2) 08/02/17 00:30 APTT 27.0 sec (22.0-30.0) 08/02/17 00:30 D-Dimer 1.99 mg/L FEU (<0.60) H 08/02/17 00:30 Sodium 135 mmol/L (137-145) L 08/06/17 05:51 Potassium 3.9 mmol/L (3.5-5.1) 08/06/17 05:51 Chloride 97 mmol/L (98-107) L 08/06/17 05:51 Carbon Dioxide 30 mmol/L (22-30) 08/06/17 05:51 Anion Gap 8 mmol/L 08/06/17 05:51 BUN 12 mg/dL (9-20) 08/06/17 05:51 Creatinine 1.00 mg/dL (0.66-1.25) 08/06/17 05:51 Est GFR (MDRD) Af Amer >60 (>60 ml/min/1.73 sqM) 08/06/17 05:51 Est GFR (MDRD) Non-Af >60 (>60 ml/min/1.73 sqM) 08/06/17 05:51 Glucose 85 mg/dL (74-99) 08/06/17 05:51 Plasma Lactic Acid Andrea 1.5 mmol/L (0.7-2.0) 08/02/17 16:19 Calcium 8.1 mg/dL (8.4-10.2) L 08/06/17 05:51 Phosphorus 3.5 mg/dL (2.5-4.5) 08/05/17 06:19 Magnesium 2.0 mg/dL (1.6-2.3) 08/05/17 06:19 Total Bilirubin 0.7 mg/dL (0.2-1.3) 08/06/17 05:51 AST 92 U/L (17-59) H 08/06/17 05:51 ALT 95 U/L (21-72) H 08/06/17 05:51 Alkaline Phosphatase 143 U/L (38-126) H 08/06/17 05:51 Total Creatine Kinase <20 U/L (55-170) L 08/02/17 00:30 CK-MB (CK-2) <0.2 ng/mL (0.0-2.4) 08/02/17 00:30 CK-MB (CK-2) Rel Index 08/02/17 00:30 Troponin I <0.012 ng/mL (0.000-0.034) 08/02/17 00:30 NT-Pro-B Natriuret Pep 219 pg/mL 08/02/17 00:30 Total Protein 5.5 g/dL (6.3-8.2) L 08/06/17 05:51 Albumin 2.6 g/dL (3.5-5.0) L 08/06/17 05:51 Triglycerides 117 mg/dL (<150) 08/03/17 06:02 Cholesterol 84 mg/dL (<200) 08/03/17 06:02 LDL Cholesterol, Calc 40 mg/dL (0-99) 08/03/17 06:02 HDL Cholesterol 21 mg/dL (40-60) L 08/03/17 06:02 Amylase <30 U/L (30-110) L 08/03/17 06:02 Lipase 13 U/L (23-300) L 08/03/17 06:02 Urine Color Yellow 08/02/17 15:33 Urine Appearance Clear (Clear) 08/02/17 15:33 Urine pH 5.5 (5.0-8.0) 08/02/17 15:33 Ur Specific Ruth 1.007 (1.001-1.035) 08/02/17 15:33 Urine Protein Trace (Negative) H 08/02/17 15:33 Urine Glucose (UA) Negative (Negative) 08/02/17 15:33 Urine Ketones Negative (Negative) 08/02/17 15:33 Urine Blood Negative (Negative) 08/02/17 15:33 Urine Nitrite Negative (Negative) 08/02/17 15:33 Urine Bilirubin Negative (Negative) 08/02/17 15:33 Urine Urobilinogen <2.0 mg/dL (<2.0) 08/02/17 15:33 Ur Leukocyte Esterase Negative (Negative) 08/02/17 15:33 Vancomycin Trough 8.6 ug/mL 08/05/17 06:19 Microbiology 08/03/17 16:00 Thoracic Fluid Gram Stain - Preliminary 08/03/17 16:00 Thoracic Fluid Body Fluid Culture - Preliminary 08/02/17 16:37 Blood Blood Culture - Preliminary No Growth after 96 hours 08/02/17 16:19 Blood Blood Culture - Preliminary No Growth after 96 hours 08/03/17 16:00 Chest Gram Stain - Preliminary 08/03/17 16:00 Chest Tissue Culture - Preliminary 08/02/17 00:30 Blood Blood Culture - Preliminary No Growth after 96 hours 08/03/17 16:00 Chest Anaerobic Culture - Preliminary 08/02/17 17:18 Urine,Clean Catch Urine Culture - Final Assessment and Plan (1) Empyema of left pleural space Narrative/Plan: 52-year-old male with history of prior injury to his cervical spine requiring reconstruction does have a history of alcoholism. Patient relates that he has fallen from a ladder resulting significant trauma to his left chest with fracture of the ribs 678 and 9. He subsequently developed a fluid collection and it was consistent with an empyema consequently a VATS procedure was performed for removal of the infected material and the pleural peel. Surgery went well the patient over postoperative fever. In addition to vancomycin therapy was on Zosyn was added into the patient is feeling better. There are multiple deep specimens are pending and will not alter antimicrobial therapy unless there are further data points from the cultures will help direct antibiotic therapy. He is quite comfortable at this time. He sat up in the chair for at least 3 hours and did well with his meal. The nursing staff will work with the patient to try to get him ambulating a bit too with his chest tubes in place. He does have leukocytosis but is starting to improve with the current antibiotic therapy and his surgical intervention. We'll monitor his response to antibiotics. He is in need of protein supplementation did not like the current supplement and comes with a clear supplement as added to see if he cannot tolerate that better to improve his protein status and his healing. 08/05/2017 the patient is feeling somewhat better today. Flesh short of breath. Tolerating sitting upright better today. Pain is improved. Seems to be okay with the clear liquid supplements. Continue antibiotic therapy the cultures are in process and negative so far. 08/06/2017 reveals the patient have further improvement. His pain from the tubes has improved and his shortness of breath is improved. It appears he will have chest tubes removed soon which will then further accelerate the discharge plan. With all negative cultures should be able to utilize oral moxifloxacin 400 mg once a day to complete 10 days of therapy after the chest tubes are removed. Leukocytosis continues to improve. Importance of smoking cessation is reinforced. Current Visit: Yes Status: Acute Code(s): J86.9 - PYOTHORAX WITHOUT FISTULA SNOMED Code(s): 24296437 (2) Rib fractures Current Visit: Yes Status: Acute Code(s): S22.39XA - FRACTURE OF ONE RIB, UNSP SIDE, INIT FOR CLOS FX SNOMED Code(s): 84530537 (3) Alcohol abuse Current Visit: Yes Status: Chronic Code(s): F10.10 - ALCOHOL ABUSE, UNCOMPLICATED SNOMED Code(s): 03990093
[2017-08-07] MEDS: PIPERACILLIN-TAZOBACTAM 3.375 GM in DEXTROSE/WATER 1 50ML.BAG IVPB SCH ×3 (00:31→16:45)
[2017-08-07 04:45] LABS: Basophils # (A) 0.1 k/uL (0-0.2); Basophils % (A) 0 %; Eosinophils # (A) 0.2 k/uL (0-0.7); Eosinophils % (A) 2 %; HCT 32.9 % (39.0-53.0); HGB 10.1 gm/dL (13.0-17.5); Lymphocytes # (A) 1.3 k/uL (1.0-4.8); Lymphocytes % (A) 10 %; MCH 28.3 pg (25.0-35.0); MCHC 30.8 g/dL (31.0-37.0); MCV 91.8 fL (80.0-100.0); Mean Platelet Volume 6.7; Monocytes # (A) 0.8 k/uL (0-1.0); Monocytes % (A) 6 %; Neutrophils # (A) 10.2 k/uL (1.3-7.7); Neutrophils % (A) 80 %; Platelet Count 499 k/uL (150-450); RBC 3.58 m/uL (4.30-5.90); RDW 12.8 % (11.5-15.5); WBC 12.7 k/uL (3.8-10.6)
[2017-08-07] MEDS: HYDROcodone/APAP 5-325MG 1 EACH TAB PO PRN ×4 (04:47→23:23)
[2017-08-07 04:49] LABS: Anion Gap 8 mmol/L; Blood Urea Nitrogen 12 mg/dL (9-20); Calcium 8.3 mg/dL (8.4-10.2); Carbon Dioxide 30 mmol/L (22-30); Chloride 97 mmol/L (98-107); Glucose 109 mg/dL (74-99); Potassium 3.3 mmol/L (3.5-5.1); Sodium 135 mmol/L (137-145)
[2017-08-07] MEDS ORDERED: VANCOMYCIN TROUGH DUE 1 EACH MISC MISCELLANE ONE (05:00)
[2017-08-07] MEDS: VANCOMYCIN 1,250 MG in SODIUM CHLORIDE 0.9% 250 ML IVPB SCH (06:13)
[2017-08-07] MEDS: PANTOPRAZOLE 40 MG TABLET PO SCH (06:13)
--- NOTE | 2017-08-07 07:59 | P.PN ---
Subjective Progress Note Date: 08/07/17 Principal diagnosis: Left-sided empyema, status post multiple rib fractures and chest tube insertion in the emergency room. Current tobacco dependence. Current EtOH abuse. Daily marijuana use. Chronic neck pain with history of cervical fusion. Remote history of DVT. POD #4 left video thoracoscopy assisted decortication of the left chest and lung. The patient's currently sitting up in the chair in no acute distress. States pain is well controlled on his current medication regimen. Denies shortness of breath. Has been up ambulating. Objective - Vital Signs Vital signs: Vital Signs Temp 97.5 F L 08/07/17 04:00 Pulse 85 08/07/17 04:00 Resp 19 08/07/17 04:00 BP 124/78 08/07/17 04:00 Pulse Ox 96 08/07/17 04:00 Intake & Output 08/06/17 08/07/17 08/07/17 18:59 06:59 18:59 Intake Total 2120 Output Total 800 800 Balance 1320 -800 Weight 72.7 kg 73.6 kg Intake: Oral 2120 Output: Urine 800 800 Other: Voiding Method Urinal # Voids 1 1 - Constitutional General appearance: Present: cooperative, no acute distress - Respiratory Details: Lungs sounds clear bilaterally, slightly diminished on the left side. Respirations even, nonlabored. Currently on room air with oxygen saturation 96% . Able to achieve 1250 mL on his incentive spirometry. Left anterior chest tube to waterseal, 20 mL of thin serous drainage in the last 24 hours. Left posterior chest tube to waterseal, 50 mL of thin serous drainage in the last 24 hours. No air leaks present. - Cardiovascular Details: S1, S2 present. Regular rate and rhythm, sinus rhythm on telemetry. Palpable peripheral pulses bilaterally. No edema present. No calf pain or tenderness noted. SCDs present. - Gastrointestinal Gastrointestinal Comment(s): Abdomen soft, nontender, nondistended. Active bowel sounds 4 quadrants. Tolerating diet. Positive bowel movement. - Genitourinary Genitourinary Comment(s): continues to void. - Integumentary Integumentary Comment(s): Skin is warm and dry with evidence of good perfusion. Left lateral chest tubes covered with dry intact dressing. - Neurologic Neurologic: Present: CNII-XII intact - Musculoskeletal Musculoskeletal: Present: gait normal, strength equal bilaterally - Psychiatric Psychiatric: Present: A&O x's 3, appropriate affect, intact judgment & insight - Allied health notes Allied health notes reviewed: nursing - Labs CBC & Chem 7: 08/07/17 04:22 08/07/17 04:22 Labs: Abnormal Lab Results - Last 24 Hours (Table) 08/07/17 08/07/17 Range/Units 04:22 04:22 WBC 12.7 H (3.8-10.6) k/uL RBC 3.58 L (4.30-5.90) m/uL Hgb 10.1 L (13.0-17.5) gm/dL Hct 32.9 L (39.0-53.0) % MCHC 30.8 L (31.0-37.0) g/dL Plt Count 499 H (150-450) k/uL Neutrophils # 10.2 H (1.3-7.7) k/uL Sodium 135 L (137-145) mmol/L Potassium 3.3 L (3.5-5.1) mmol/L Chloride 97 L (98-107) mmol/L Glucose 109 H (74-99) mg/dL Calcium 8.3 L (8.4-10.2) mg/dL Microbiology - Last 24 Hours (Table) 08/02/17 00:30 Blood Culture - Preliminary Blood No Growth after 120 hours 08/03/17 16:00 Gram Stain - Preliminary Thoracic Fluid Body Fluid Culture - Preliminary 08/02/17 16:37 Blood Culture - Preliminary Blood No Growth after 96 hours 08/02/17 16:19 Blood Culture - Preliminary Blood No Growth after 96 hours 08/03/17 16:00 Gram Stain - Preliminary Chest Tissue Culture - Preliminary - Imaging and Cardiology Chest x-ray: image reviewed Assessment and Plan (1) Tobacco dependence Current Visit: Yes Status: Chronic Code(s): F17.200 - NICOTINE DEPENDENCE, UNSPECIFIED, UNCOMPLICATED SNOMED Code(s): 38078217 (2) Alcohol abuse Current Visit: Yes Status: Chronic Code(s): F10.10 - ALCOHOL ABUSE, UNCOMPLICATED SNOMED Code(s): 59533661 (3) Marijuana use Current Visit: Yes Status: Chronic Code(s): F12.90 - CANNABIS USE, UNSPECIFIED, UNCOMPLICATED SNOMED Code(s): 402834811 (4) History of DVT (deep vein thrombosis) Current Visit: No Status: Resolved Code(s): Z86.718 - PERSONAL HISTORY OF OTHER VENOUS THROMBOSIS AND EMBOLISM SNOMED Code(s): 966092511 (5) Chest pain Current Visit: Yes Status: Chronic Code(s): R07.9 - CHEST PAIN, UNSPECIFIED SNOMED Code(s): 64299318 (6) Fracture of rib of left side Current Visit: Yes Status: Chronic Code(s): S22.32XA - FRACTURE OF ONE RIB, LEFT SIDE, INIT FOR CLOS FX SNOMED Code(s): 76165502 (7) Hydropneumothorax Current Visit: Yes Status: Acute Code(s): J94.8 - OTHER SPECIFIED PLEURAL CONDITIONS SNOMED Code(s): 49852939 Plan: 1. Continue chest tubes to water seal. Likely will discontinue later today. 2. Encourage incentive spirometry use 10 times every hour while awake. Encourage smoking cessation. 3. Will monitor daily chest x-rays and labs. Potassium replaced. Pleural fluid cultures pending. 4. Continue CIWA protocol. Encourage alcohol cessation. 5. GI/DVT prophylaxis. 6. Antibiotic management per infectious disease recommendations. 7. Increase activity, ambulate in hallway. PT/OT following. 8. Continue pain management per current orders. 9. Medical management per primary care services. 10. More recommendations to follow. Time with Patient: Greater than 30
--- NOTE | 2017-08-07 08:16 | XR ---
EXAMINATION TYPE: XR chest 2V DATE OF EXAM: 08/07/2017 COMPARISON: 08/06/2017 HISTORY: 52-year-old male post thoracic surgery TECHNIQUE: Frontal and lateral views FINDINGS: ACDF hardware. 2 left-sided chest tubes remain in place. Known fourth through eighth left lateral rib fractures are demonstrated. The sidehole for the basilar chest tube is just outside of the expected pleural cavity. Left heart margin remains obscured by adjacent pleural parenchymal disease. Moderate left pleural effusion persists but may have slightly decreased in the interval. Adjacent left mid and lower lung densities persist. Small right pleural effusion. IMPRESSION: 1. 2 left-sided chest tubes. The sidehole for the basilar chest tube may now be partially outside the pleural cavity. No appreciable pneumothorax. 2. Multiple known left lateral rib fractures. Moderate left pleural effusion with adjacent atelectasi s and/or consolidation. Minimally improved in the interval. 3. Small right effusion.
[2017-08-07] MEDS: IPRATROPIUM-ALBUTEROL 3 ML NEB INHALATION SCH ×4 (08:46→20:14)
[2017-08-07] MEDS: NICOTINE 14MG/24HR PATCH TRANSDERM SCH (09:04)
[2017-08-07] MEDS: HEPARIN SODIUM,PORCINE 5,000 UNIT/ML 1 ML VIAL SQ SCH ×2 (09:04→21:26)
[2017-08-07] MEDS: THIAMINE 100 MG TAB PO SCH ×2 (11:32→16:46)
[2017-08-07] MEDS: FOLIC ACID 1 MG TAB PO SCH (11:32)
[2017-08-07] MEDS: POTASSIUM CHLORIDE ER 20 MEQ TAB.ER PO SCH ×2 (11:32→11:33)
[2017-08-07] MEDS: MULTIVITAMINS, THERA 1 EACH TAB PO SCH (11:32)
--- NOTE | 2017-08-07 12:40 | P.PN ---
Subjective Progress Note Date: 08/07/17 Principal diagnosis: Left sided hemothorax, possibly empyema This is a pleasant 52-year-old gentleman who follows with Dr. Johnson as his primary care physician. He has no significant past medical history other than chronic and ongoing tobacco use and chronic neck pain with previous cervical fusion. Approximately 20 days ago on 07/13/2017 he had gotten up in the middle of the night to use the restroom. He was putting on a sock and heading down the stairs when he missed the first step and fell down 15 steps. He was seen at outside emergency room and was told he had 2-3 left-sided broken ribs was treated with pain medications and released. He had continuing ongoing pain and presented here to the emergency room on 07/17/2017 with continued complaints of significant left chest wall pain. No real worsening shortness of breath. No cough or congestion. No hemoptysis. He was having some pain with end expiration. Chest x-ray at that time did not reveal any evidence of pneumothorax, hemothorax or focal pneumonia. He was noted to have displaced rib fractures 5 through 9 on the left. He was continued on [place] and Motrin for the pain. Unfortunately continued to have worsening and ongoing pain and presented here to the emergency room early this morning around midnight. The pain was quite severe and he was quite short of breath. A CT angiogram was performed. Pulmonary embolism was ruled out however there was a significant left-sided hydrothorax with mild tension. His heart and mediastinum were shifted to the right. There are numerous healing posterior left rib fractures. The chest tube was inserted and approximately 650 MLS of bloody fluid was returned. He has had some relief of the pain. Follow-up chest x-ray does reveal some improvement however there is continued fluid possibly loculated. White count 22.9. Hemoglobin 15.4. Creatinine 1.90. He is on vancomycin and Zosyn. He is maintaining good O2 saturations in the upper 90s on 3 L/m per nasal cannula. He is hemodynamically stable. Afebrile. The patient is seen again today 08/03/2017 in follow-up on the selective care unit. He is awake and alert in no acute distress. He is still quite uncomfortable and needs extra encouragement regarding deep breathing and coughing exercises. He is maintaining good O2 saturations in the mid 90s on 3 L /m per nasal cannula. He did have a temp of 100.4 earlier this morning. He is slightly tachycardic. No tachypnea. Blood and urine cultures are pending. White count 22.5. Hemoglobin 13.2. Creatinine 1.10. His chest x-ray shows the side port outside of the left hemothorax on the chest tube. There is increasing pleural effusion or hemothorax. There is some possible mass effect on the mediastinum as well. He has been seen and evaluated by cardiothoracic services and the plan is for a VATS procedure today. Patient was reevaluated today on 08/04/2017, patient is status post VATS and decortication with 2 chest tubes placed at present in the left pleural space. Intraoperatively, the thoracic surgeon felt that the patient may have left- sided empyema. Patient did relatively well, he is back on selective, on antibiotics in the form of vancomycin and Zosyn, feeling better, but the chest x -ray continues to show significant consolidation in the left lower lobe. Patient is using incentive spirometry, however does not seem to be able to expand his left lower lobe. He may eventually require bronchoscopy to evaluate the left lower lobe. Labs were reviewed WBC count is 19.4 hemoglobin is 11.6 basic metabolic profile is relatively normal. Cultures from the left sided empyema are pending. Patient was reevaluated today on 08/05/2017, doing quite well, relatively asymptomatic. Continues to have [address], pain seems to be fairly well controlled. No cough no wheezing no shortness of breath no fever no chills no hemoptysis. Remains on antibiotics empirically. Patient may have empyema however it is not confirmed based on the cultures yet. On 08/06/2017 patient seen in follow-up. He still has the 2 left-sided chest tubes in place, he is status post left video assisted thoracoscopy and decortication of the left chest and lung. His left chest pain is reasonably controlled on pain medications. He is compliant with his incentive spirometry, he is able to achieve 1250 on it today. His chest tubes were placed to waterseal yesterday. Lung sounds are diminished bilaterally, more so over left lower lobe. He denies any acute respiratory distress. There is small amount of serosanguineous drainage from both chest tubes. No air leak was present. On 08/07/2017 patient seen again in follow-up. Denies any acute dyspnea, his pain is reasonably controlled with scheduled pain medications. Lung sounds are diminished over left lower lobe, clear lung sounds over the right lung. Incentive spirometry effort today is 1500 mL. Patient did ambulate today with physical therapy, and tolerated activity well. Currently on room air, with O2 sat at 94%. The 2 chest tubes in the left chest remain to waterseal, with small amount of serosanguineous drainage. Surgery is discussing removal of the chest tubes possibly later on today. Pleural fluid cultures are still pending. Blood cultures are negative, patient remains on vancomycin and Zosyn, continues on nebulized treatments. Objective - Vital Signs Vital signs: Vital Signs Temp 97.6 F 08/07/17 09:00 Pulse 92 08/07/17 11:10 Resp 16 08/07/17 11:10 BP 117/68 08/07/17 11:10 Pulse Ox 94 L 08/07/17 11:10 Intake & Output 08/06/17 08/07/17 08/07/17 18:59 06:59 18:59 Intake Total 2120 120 Output Total 800 800 200 Balance 1320 -800 -80 Weight 72.7 kg 73.6 kg Intake: Oral 2120 120 Output: Urine 800 800 200 Other: Voiding Method Urinal Urinal # Voids 1 1 - Exam GENERAL EXAM: Alert, active, comfortable in no apparent distress. HEAD: Normocephalic. EYES: Normal reaction of pupils, equal size. NOSE: Clear with pink turbinates. THROAT: No erythema or exudates. NECK: No masses, no JVD. CHEST: 2 left-sided chest tubes were noted, both placed to waterseal, there is small amount of serosanguineous drainage draining from both of them LUNGS: Diminished breath sounds and dullness at the left base noted. No crackles or rhonchi or wheezes. CVS: S1 and S2 normal with no audible murmur, regular rhythm. ABDOMEN: No hepatosplenomegaly, normal bowel sounds, no guarding or rigidity. SPINE: No scoliosis or deformity SKIN: No rashes CENTRAL NERVOUS SYSTEM: No focal deficits, tone is normal in all 4 extremities. EXTREMITIES: There is no peripheral edema. No clubbing, no cyanosis. Peripheral pulses are intact. - Labs CBC & Chem 7: 08/07/17 04:22 08/07/17 04:22 Labs: Abnormal Lab Results - Last 24 Hours (Table) 08/07/17 08/07/17 Range/Units 04:22 04:22 WBC 12.7 H (3.8-10.6) k/uL RBC 3.58 L (4.30-5.90) m/uL Hgb 10.1 L (13.0-17.5) gm/dL Hct 32.9 L (39.0-53.0) % MCHC 30.8 L (31.0-37.0) g/dL Plt Count 499 H (150-450) k/uL Neutrophils # 10.2 H (1.3-7.7) k/uL Sodium 135 L (137-145) mmol/L Potassium 3.3 L (3.5-5.1) mmol/L Chloride 97 L (98-107) mmol/L Glucose 109 H (74-99) mg/dL Calcium 8.3 L (8.4-10.2) mg/dL Microbiology - Last 24 Hours (Table) 08/02/17 00:30 Blood Culture - Preliminary Blood No Growth after 120 hours 08/03/17 16:00 Gram Stain - Preliminary Thoracic Fluid Body Fluid Culture - Preliminary 08/02/17 16:37 Blood Culture - Preliminary Blood No Growth after 96 hours 08/02/17 16:19 Blood Culture - Preliminary Blood No Growth after 96 hours 08/03/17 16:00 Gram Stain - Preliminary Chest Tissue Culture - Preliminary Assessment and Plan Plan: Assessment: #1 Acute hypoxic respiratory failure secondary to a large left sided hemothorax , possible empyema secondary to trauma. Status post chest tube insertion followed by VATS and decortication, and now [address]. #2 Left-sided chest wall trauma with multiple rib fractures secondary to a fall down 15 steps on 07/13/2017 #3 Chronic and ongoing tobacco dependence. #4 Chronic neck pain, status post cervical fusion. Recommendation: Patient is doing well, tolerating ambulation, remains on room air, compliant with his incentive spirometry. Anticipate removal of the chest tubes by surgery later on today. Continue current plan of care, continue incentive spirometry, bronchodilators, ambulation, antibiotics. Antibiotics as per infectious disease on the case. I performed a history & physical examination of the patient and discussed their management with my nurse practitioner, Radha Valentin. I reviewed the nurse practitioner's note and agree with the documented findings and plan of care. Lung sounds are as a for diminished air entry over left lower lobe, dullness to percussion present. The findings and the impression was discussed with the patient. I attest to the documentation by the nurse practitioner. Time with Patient: Less than 30
[2017-08-07] MEDS ORDERED: VANCOMYCIN 1,000 MG in SODIUM CHLORIDE 0.9% 250 ML IVPB SCH (20:00)
--- NOTE | 2017-08-07 21:50 | PN ---
PROGRESS NOTE DATE OF SERVICE: 08/07/2017. This 52-year-old gentleman admitted with hemothorax as was possible empyema, is being closely monitored. One of the chest tubes has been recommend to be removed by Cardiothoracic Surgery. No chest pain. No palpitations. No fever. EXAM: Alert and oriented x3. Pulse is 93, blood pressure 113/68, respirations 16, temperature 97.8, pulse ox 94% room air. HEENT: Conjunctivae normal. NECK: No jugular venous distention. CARDIOVASCULAR: S1, S2 muffled. RESPIRATORY: Breath sounds diminished in the bases. A few scattered rhonchi and crackles. ABDOMEN: Soft, nontender. No mass palpable. LEGS: No edema. No swelling. NERVOUS SYSTEM: Higher functions as mentioned earlier. Moves all 4 limbs. No focal deficits. LYMPHATIC: No lymphadenopathy in neck or axillae. SKIN: No ulcer, rash or bleeding. LABS: WBC 12.6, hemoglobin is 10.1. Sodium 138, potassium 3.5. ASSESSMENT: 1. Left-sided pleural effusion with possibly traumatic hemothorax as well as empyema on the left side, status post decortication and chest tube drainage with acute hypoxic respiratory failure with a mediastinal shift, present on admission. 2. Increased WBC, possibly sepsis, present on admission. 3. Hyponatremia. 4. Increased creatinine with acute renal failure, possibly multifactorial, present on admission. 5. History of degenerative joint disease. 6. History of neck pain. 7. History of EtOH. 8. History of cervical fusion. 9. History of nicotine dependence. 10.History of THC. RECOMMENDATION AND DISCUSSION: Recommend to continue current medical management, continue with monitoring and symptomatic treatment. Otherwise at this time, we will monitor the patient closely. Otherwise I would recommend continue with current medications. Continue with chest tube drainage. Continue with antibiotics. Guarded prognosis because of multiple complex medical issues. Further recommendations to follow. MMODL / IJN: [id number] /
--- NOTE | 2017-08-07 22:19 | P.PN ---
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 The patient relates that he has moved into a new home. He was doing some work and follow- up of the latter resulting in significant trauma to the left chest with multiple rib fractures. No several weeks after he is developed a marked increase in her shortness of breath and some pain to his chest. He consequently presented to the emergency center and was admitted. CT angiogram reveal evidence of no pulmonary embolus but the multiple rib fractures 678 and 9 the left chest were noted that are displaced and a significant hydrothorax was noted. The patient had a chest tube inserted into the left pleural space with improvement of his shortness of breath. At the time of the computed tomography scan there was evidence of some tension and displacement of the heart and lung to the right side. This is improved since the chest tube was placed. The patient has developed a fever but is rather unaware of his elevated temperature. He does not believe it is had chills or rigors. In general he feels better than when he presented to Hospital. He however is still not eating very well this time. They've offered a protein supplement and he is not enjoying it. 08/05/2017 patient is feeling somewhat better today. Pain level is improving. He is unable to sit up in the chair for more time in less discomfort. He believes he is using less pain medicine. He states he is less short of breath. 08/06/2017 patient is showing further improvement. Chest tube is to water seal. He's been up and walking in the cline. Follow-up chest x-rays plan in the morning a potential chest tube removal at this time. Pain is better controlled. Shortness of breath is improved. Attempting to utilize for the protein supplements to assist is healing. Denies fever chills or rigors. 08/07/2017 patient continues to improve. The anterior chest tube is been removed with no difficulties. He's actually feeling somewhat better. Energy level is improving. She's been out for a walk without great difficulties. Pain is better controlled. Shortness of breath is improved. He has no other acute complaints. Case is discussed with the thoracic surgery team and try to transition to oral antibiotic therapy for discharge home soon. Objective - Vital Signs Vital signs: Vital Signs Temp 97.8 F 08/07/17 16:50 Pulse 93 08/07/17 16:50 Resp 16 08/07/17 16:50 BP 121/68 08/07/17 16:50 Pulse Ox 94 L 08/07/17 16:50 Intake & Output 08/07/17 08/07/17 08/08/17 06:59 18:59 06:59 Intake Total 640 Output Total 800 600 Balance -800 40 Weight 73.6 kg Intake: Intake, IV Titration 300 Amount Piperacillin-Tazobactam 3 50 .375 gm In Dextrose/Water 1 50ml.bag @ 12.5 mls/hr IVPB Q8HR [facility] Rx#: [id number] Vancomycin 1,000 mg In 250 Sodium Chloride 0.9% 250 ml @ 125 mls/hr IVPB Q8H [facility] Rx#:[id number] Oral 340 Output: Chest Tube Drainage 0 Chest Tube Left Upper Mid 0 -Axillary Chest Urine 800 600 Other: Voiding Method Urinal Urinal # Voids 1 1 # Bowel Movements 0 - Exam 52-year-old male of thin build who is in no acute distress at this time HEENT: Anicteric conjunctiva are pink and moist nasal mucosa grossly intact without significant lesions, there is no thrush. Neck: The neck is supple without significant lymphadenopathy or thyromegaly. Lungs: They're symmetrical air entry however there are decreased breath sounds at left base. Bronchial sounds at the base are also noted. There is some bruising noted around the ribs but the chest tubes are in place each draining about 50 mL since this morning shift. Heart: Regular rate and rhythm with an audible S1-S2, no S3 no S4. There is no significant murmur click or rub, PMI was nondisplaced. Abdomen: Positive bowel sounds soft and nontender without palpable masses or organomegaly. There was no guarding or rebound. Extremities: The upper extremities have excellent pulses they are symmetric, no significant petechiae or telangiectasia. No splinter hemorrhages were noted. The lower extremities are free from significant edema. The peripheral pulses were 2+ and symmetric. Neuro: Awake alert oriented to person place and time. There are no acute new gross focal sensory motor deficits. - Labs CBC & Chem 7: 08/07/17 04:22 08/07/17 04:22 Labs: Abnormal Lab Results - Last 24 Hours (Table) 08/07/17 08/07/17 Range/Units 04:22 04:22 WBC 12.7 H (3.8-10.6) k/uL RBC 3.58 L (4.30-5.90) m/uL Hgb 10.1 L (13.0-17.5) gm/dL Hct 32.9 L (39.0-53.0) % MCHC 30.8 L (31.0-37.0) g/dL Plt Count 499 H (150-450) k/uL Neutrophils # 10.2 H (1.3-7.7) k/uL Sodium 135 L (137-145) mmol/L Potassium 3.3 L (3.5-5.1) mmol/L Chloride 97 L (98-107) mmol/L Glucose 109 H (74-99) mg/dL Calcium 8.3 L (8.4-10.2) mg/dL Microbiology - Last 24 Hours (Table) 08/03/17 16:00 Gram Stain - Preliminary Thoracic Fluid Body Fluid Culture - Preliminary Alpha Hemolytic Streptococcus 08/02/17 16:37 Blood Culture - Preliminary Blood No Growth after 120 hours 08/02/17 16:19 Blood Culture - Preliminary Blood No Growth after 120 hours 08/03/17 16:00 Gram Stain - Final Chest Tissue Culture - Final 08/02/17 00:30 Blood Culture - Preliminary Blood No Growth after 120 hours Laboratory Results WBC 12.7 k/uL (3.8-10.6) H 08/07/17 04:22 RBC 3.58 m/uL (4.30-5.90) L 08/07/17 04:22 Hgb 10.1 gm/dL (13.0-17.5) L 08/07/17 04:22 Hct 32.9 % (39.0-53.0) L 08/07/17 04:22 MCV 91.8 fL (80.0-100.0) 08/07/17 04:22 MCH 28.3 pg (25.0-35.0) 08/07/17 04:22 MCHC 30.8 g/dL (31.0-37.0) L 08/07/17 04:22 RDW 12.8 % (11.5-15.5) 08/07/17 04:22 Plt Count 499 k/uL (150-450) H 08/07/17 04:22 Neutrophils % 80 % 08/07/17 04:22 Lymphocytes % 10 % 08/07/17 04:22 Monocytes % 6 % 08/07/17 04:22 Eosinophils % 2 % 08/07/17 04:22 Basophils % 0 % 08/07/17 04:22 Neutrophils # 10.2 k/uL (1.3-7.7) H 08/07/17 04:22 Lymphocytes # 1.3 k/uL (1.0-4.8) 08/07/17 04:22 Monocytes # 0.8 k/uL (0-1.0) 08/07/17 04:22 Eosinophils # 0.2 k/uL (0-0.7) 08/07/17 04:22 Basophils # 0.1 k/uL (0-0.2) 08/07/17 04:22 Hypochromasia Slight 08/02/17 00:30 PT 10.3 sec (9.0-12.0) 08/02/17 00:30 INR 1.1 (<1.2) 08/02/17 00:30 APTT 27.0 sec (22.0-30.0) 08/02/17 00:30 D-Dimer 1.99 mg/L FEU (<0.60) H 08/02/17 00:30 Sodium 135 mmol/L (137-145) L 08/07/17 04:22 Potassium 3.3 mmol/L (3.5-5.1) L 08/07/17 04:22 Chloride 97 mmol/L (98-107) L 08/07/17 04:22 Carbon Dioxide 30 mmol/L (22-30) 08/07/17 04:22 Anion Gap 8 mmol/L 08/07/17 04:22 BUN 12 mg/dL (9-20) 08/07/17 04:22 Creatinine 1.10 mg/dL (0.66-1.25) 08/07/17 04:22 Est GFR (MDRD) Af Amer >60 (>60 ml/min/1.73 sqM) 08/07/17 04:22 Est GFR (MDRD) Non-Af >60 (>60 ml/min/1.73 sqM) 08/07/17 04:22 Glucose 109 mg/dL (74-99) H 08/07/17 04:22 Plasma Lactic Acid Andrea 1.5 mmol/L (0.7-2.0) 08/02/17 16:19 Calcium 8.3 mg/dL (8.4-10.2) L 08/07/17 04:22 Phosphorus 3.5 mg/dL (2.5-4.5) 08/05/17 06:19 Magnesium 2.0 mg/dL (1.6-2.3) 08/05/17 06:19 Total Bilirubin 0.7 mg/dL (0.2-1.3) 08/06/17 05:51 AST 92 U/L (17-59) H 08/06/17 05:51 ALT 95 U/L (21-72) H 08/06/17 05:51 Alkaline Phosphatase 143 U/L (38-126) H 08/06/17 05:51 Total Creatine Kinase <20 U/L (55-170) L 08/02/17 00:30 CK-MB (CK-2) <0.2 ng/mL (0.0-2.4) 08/02/17 00:30 CK-MB (CK-2) Rel Index 08/02/17 00:30 Troponin I <0.012 ng/mL (0.000-0.034) 08/02/17 00:30 NT-Pro-B Natriuret Pep 219 pg/mL 08/02/17 00:30 Total Protein 5.5 g/dL (6.3-8.2) L 08/06/17 05:51 Albumin 2.6 g/dL (3.5-5.0) L 08/06/17 05:51 Triglycerides 117 mg/dL (<150) 08/03/17 06:02 Cholesterol 84 mg/dL (<200) 08/03/17 06:02 LDL Cholesterol, Calc 40 mg/dL (0-99) 08/03/17 06:02 HDL Cholesterol 21 mg/dL (40-60) L 08/03/17 06:02 Amylase <30 U/L (30-110) L 08/03/17 06:02 Lipase 13 U/L (23-300) L 08/03/17 06:02 Urine Color Yellow 08/02/17 15:33 Urine Appearance Clear (Clear) 08/02/17 15:33 Urine pH 5.5 (5.0-8.0) 08/02/17 15:33 Ur Specific [place] 1.007 (1.001-1.035) 08/02/17 15:33 Urine Protein Trace (Negative) H 08/02/17 15:33 Urine Glucose (UA) Negative (Negative) 08/02/17 15:33 Urine Ketones Negative (Negative) 08/02/17 15:33 Urine Blood Negative (Negative) 08/02/17 15:33 Urine Nitrite Negative (Negative) 08/02/17 15:33 Urine Bilirubin Negative (Negative) 08/02/17 15:33 Urine Urobilinogen <2.0 mg/dL (<2.0) 08/02/17 15:33 Ur Leukocyte Esterase Negative (Negative) 08/02/17 15:33 Vancomycin Trough 25.1 ug/mL 08/07/17 04:22 Microbiology 08/03/17 16:00 Thoracic Fluid Gram Stain - Preliminary 08/03/17 16:00 Thoracic Fluid Body Fluid Culture - Preliminary Alpha Hemolytic Streptococcus 08/02/17 16:37 Blood Blood Culture - Preliminary No Growth after 120 hours 08/02/17 16:19 Blood Blood Culture - Preliminary No Growth after 120 hours 08/03/17 16:00 Chest Gram Stain - Final 08/03/17 16:00 Chest Tissue Culture - Final 08/02/17 00:30 Blood Blood Culture - Preliminary No Growth after 120 hours 08/03/17 16:00 Chest Anaerobic Culture - Preliminary 08/02/17 17:18 Urine,Clean Catch Urine Culture - Final - Imaging and Cardiology Chest x-ray: report reviewed (stable) Assessment and Plan (1) Empyema of left pleural space Narrative/Plan: 52-year-old male with history of prior injury to his cervical spine requiring reconstruction does have a history of alcoholism. Patient relates that he has fallen from a ladder resulting significant trauma to his left chest with fracture of the ribs 678 and 9. He subsequently developed a fluid collection and it was consistent with an empyema consequently a VATS procedure was performed for removal of the infected material and the pleural peel. Surgery went well the patient over postoperative fever. In addition to vancomycin therapy was on Zosyn was added into the patient is feeling better. There are multiple deep specimens are pending and will not alter antimicrobial therapy unless there are further data points from the cultures will help direct antibiotic therapy. He is quite comfortable at this time. He sat up in the chair for at least 3 hours and did well with his meal. The nursing staff will work with the patient to try to get him ambulating a bit too with his chest tubes in place. He does have leukocytosis but is starting to improve with the current antibiotic therapy and his surgical intervention. We'll monitor his response to antibiotics. He is in need of protein supplementation did not like the current supplement and comes with a clear supplement as added to see if he cannot tolerate that better to improve his protein status and his healing. 08/05/2017 the patient is feeling somewhat better today. Flesh short of breath. Tolerating sitting upright better today. Pain is improved. Seems to be okay with the clear liquid supplements. Continue antibiotic therapy the cultures are in process and negative so far. 08/06/2017 reveals the patient have further improvement. His pain from the tubes has improved and his shortness of breath is improved. It appears he will have chest tubes removed soon which will then further accelerate the discharge plan. With all negative cultures should be able to utilize oral moxifloxacin 400 mg once a day to complete 10 days of therapy after the chest tubes are removed. Leukocytosis continues to improve. Importance of smoking cessation is reinforced. 08/07/2017 patient continues to improve. Anterior chest was removed without acute difficulty. It appears that the posterior chest tube will likely be removed tomorrow and then 24 hours later if well should be ready for discharged home and with the office strep oral moxifloxacin remains an ideal choice for home. Current Visit: Yes Status: Acute Code(s): J86.9 - PYOTHORAX WITHOUT FISTULA SNOMED Code(s): 93622544 (2) Rib fractures Current Visit: Yes Status: Acute Code(s): S22.39XA - FRACTURE OF ONE RIB, UNSP SIDE, INIT FOR CLOS FX SNOMED Code(s): 09976616 (3) Alcohol abuse Current Visit: Yes Status: Chronic Code(s): F10.10 - ALCOHOL ABUSE, UNCOMPLICATED SNOMED Code(s): 88331848
[2017-08-08] MEDS: HYDROcodone/APAP 5-325MG 1 EACH TAB PO PRN ×2 (06:11→19:37)
[2017-08-08] MEDS: PANTOPRAZOLE 40 MG TABLET PO SCH (06:11)
[2017-08-08] MEDS: LEVOFLOXACIN 500 MG TAB PO SCH (06:11)
[2017-08-08 06:32] LABS: Basophils # (A) 0.1 k/uL (0-0.2); Basophils % (A) 1 %; Eosinophils # (A) 0.3 k/uL (0-0.7); Eosinophils % (A) 2 %; HCT 30.1 % (39.0-53.0); HGB 9.3 gm/dL (13.0-17.5); Lymphocytes # (A) 1.5 k/uL (1.0-4.8); Lymphocytes % (A) 12 %; MCH 27.9 pg (25.0-35.0); MCHC 30.7 g/dL (31.0-37.0); MCV 90.8 fL (80.0-100.0); Mean Platelet Volume 6.8; Monocytes # (A) 0.8 k/uL (0-1.0); Monocytes % (A) 6 %; Neutrophils # (A) 10.3 k/uL (1.3-7.7); Neutrophils % (A) 79 %; Platelet Count 579 k/uL (150-450); RBC 3.32 m/uL (4.30-5.90); RDW 13.3 % (11.5-15.5); WBC 13.1 k/uL (3.8-10.6)
[2017-08-08] MEDS: IPRATROPIUM-ALBUTEROL 3 ML NEB INHALATION SCH ×4 (07:45→20:09)
[2017-08-08] MEDS: HEPARIN SODIUM,PORCINE 5,000 UNIT/ML 1 ML VIAL SQ SCH ×2 (07:58→19:38)
[2017-08-08] MEDS: NICOTINE 14MG/24HR PATCH TRANSDERM SCH (07:58)
--- NOTE | 2017-08-08 10:16 | XR ---
EXAMINATION TYPE: XR chest 1V portable DATE OF EXAM: 08/08/2017 COMPARISON: 08/07/2017 HISTORY: Post VATS. Follow-up exam. TECHNIQUE: Single frontal view of the chest is obtained. FINDINGS: There is an unchanged moderate left pleural effusion and left sided airspace disease with thoracotomy changes and multilevel known fractures of the left ribs, reactive pleural thickening, and left-sided thoracostomy tube in unchanged position with its sidehole at or just outside the pleural cavity. Punctate focus of subcutaneous emphysema is seen adjacent to this. There is been interval rem oval of the second thoracostomy tube. No residual pneumothorax. Right lung remains clear. There is pa rtial obscuration of the cardiac silhouette although it appears stable from the prior. Partial visual ization of cervical fusion device. IMPRESSION: 1. Interval removal of the more cephalad left-sided thoracostomy tube with the sidehole of the remain ing thoracostomy tube at or just outside the pleural surface. Correlate for air leak. 2. Unchanged moderate left pleural effusion, left-sided airspace disease that likely relates to atele ctasis, multiple left-sided rib fractures, and reactive pleural thickening post VATS procedure.
--- NOTE | 2017-08-08 10:19 | P.PN ---
Subjective Progress Note Date: 08/08/17 Principal diagnosis: Left-sided empyema, status post multiple rib fractures and chest tube insertion in the emergency room. Current tobacco dependence. Current EtOH abuse. Daily marijuana use. Chronic neck pain with history of cervical fusion. Remote history of DVT. POD #5 left video thoracoscopy assisted decortication of the left chest and lung. The patient's currently sitting up in the chair in no acute distress. States pain is well controlled on his current medication regimen. Denies shortness of breath. Has been up ambulating. Left anterior chest tube was discontinued yesterday without incident. Objective - Vital Signs Vital signs: Vital Signs Temp 98.4 F 08/08/17 04:24 Pulse 85 08/08/17 04:24 Resp 16 08/08/17 04:24 BP 127/73 08/08/17 04:24 Pulse Ox 94 L 08/08/17 04:24 Intake & Output 08/07/17 08/08/17 08/08/17 18:59 06:59 18:59 Intake Total 640 480 Output Total 600 1185 Balance 40 -705 Weight 73.6 kg Intake: Intake, IV Titration 300 Amount Piperacillin-Tazobactam 3 50 .375 gm In Dextrose/Water 1 50ml.bag @ 12.5 mls/hr IVPB Q8HR [facility] Rx#: [id number] Vancomycin 1,000 mg In 250 Sodium Chloride 0.9% 250 ml @ 125 mls/hr IVPB Q8H [facility] Rx#:[id number] Oral 340 480 Output: Chest Tube Drainage 0 10 Chest Tube Left Upper Mid 0 10 -Axillary Chest Urine 600 1175 Other: Voiding Method Urinal Urinal # Voids 1 # Bowel Movements 0 - Constitutional General appearance: Present: cooperative, no acute distress - Respiratory Details: Lungs sounds diminished bilaterally, left greater than right. Respirations even , nonlabored. Currently on room air with oxygen saturation 94%. Able to achieve 3248-8345 mL on his incentive spirometry. Effective cough. Left posterior chest tube present to waterseal, 10 mL thin serous drainage overnight , 20 mL the last 24 hours, no air leak present. - Cardiovascular Details: S1, S2 present. Regular rate and rhythm, sinus rhythm on telemetry. Palpable peripheral pulses bilaterally. No edema present. No calf pain or tenderness noted. SCDs present. - Gastrointestinal Gastrointestinal Comment(s): Abdomen soft, nontender, nondistended. Active bowel sounds 4 quadrants. Tolerating diet. - Genitourinary Genitourinary Comment(s): Continues to void. - Integumentary Integumentary Comment(s): Skin is warm and dry with evidence of good perfusion. Left chest tube sites covered with dry intact dressing. - Neurologic Neurologic: Present: CNII-XII intact - Musculoskeletal Musculoskeletal: Present: gait normal, strength equal bilaterally - Psychiatric Psychiatric: Present: A&O x's 3, appropriate affect, intact judgment & insight - Allied health notes Allied health notes reviewed: nursing - Labs CBC & Chem 7: 08/08/17 06:09 08/07/17 04:22 Labs: Abnormal Lab Results - Last 24 Hours (Table) 08/08/17 Range/Units 06:09 WBC 13.1 H (3.8-10.6) k/uL RBC 3.32 L (4.30-5.90) m/uL Hgb 9.3 L (13.0-17.5) gm/dL Hct 30.1 L (39.0-53.0) % MCHC 30.7 L (31.0-37.0) g/dL Plt Count 579 H (150-450) k/uL Neutrophils # 10.3 H (1.3-7.7) k/uL Microbiology - Last 24 Hours (Table) 08/02/17 00:30 Blood Culture - Final Blood No Growth after 144 hours 08/03/17 16:00 Anaerobic Culture - Final Chest 08/03/17 16:00 Gram Stain - Preliminary Thoracic Fluid Body Fluid Culture - Preliminary Alpha Hemolytic Streptococcus 08/02/17 16:37 Blood Culture - Preliminary Blood No Growth after 120 hours 08/02/17 16:19 Blood Culture - Preliminary Blood No Growth after 120 hours 08/03/17 16:00 Gram Stain - Final Chest Tissue Culture - Final - Imaging and Cardiology Chest x-ray: pending Assessment and Plan (1) Tobacco dependence Current Visit: Yes Status: Chronic Code(s): F17.200 - NICOTINE DEPENDENCE, UNSPECIFIED, UNCOMPLICATED SNOMED Code(s): 37808965 (2) Alcohol abuse Current Visit: Yes Status: Chronic Code(s): F10.10 - ALCOHOL ABUSE, UNCOMPLICATED SNOMED Code(s): 13293525 (3) Marijuana use Current Visit: Yes Status: Chronic Code(s): F12.90 - CANNABIS USE, UNSPECIFIED, UNCOMPLICATED SNOMED Code(s): 304429147 (4) History of DVT (deep vein thrombosis) Current Visit: No Status: Resolved Code(s): Z86.718 - PERSONAL HISTORY OF OTHER VENOUS THROMBOSIS AND EMBOLISM SNOMED Code(s): 853357938 (5) Chest pain Current Visit: Yes Status: Chronic Code(s): R07.9 - CHEST PAIN, UNSPECIFIED SNOMED Code(s): 19813466 (6) Fracture of rib of left side Current Visit: Yes Status: Chronic Code(s): S22.32XA - FRACTURE OF ONE RIB, LEFT SIDE, INIT FOR CLOS FX SNOMED Code(s): 95109557 (7) Hydropneumothorax Current Visit: Yes Status: Acute Code(s): J94.8 - OTHER SPECIFIED PLEURAL CONDITIONS SNOMED Code(s): 88163653 Plan: 1. Will discontinue left posterior chest tube today. 2. Encourage incentive spirometry use 10 times every hour while awake. Encourage smoking cessation. 3. Repeat chest x-ray in the morning. Pleural fluid cultures preliminary alpha hemolytic strep. 4. Continue CIWA protocol. Encourage alcohol cessation. 5. GI/DVT prophylaxis. 6. Antibiotic management per infectious disease recommendations. 7. Increase activity, ambulate in hallway. PT/OT following. 8. Continue pain management per current orders. 9. Medical management per primary care services. Would recommend patient stays 1 more night to get chest x-ray in the morning. If primary decides to just discharge patient later this afternoon patient needs to have chest x-ray before discharge. 10. More recommendations to follow. Time with Patient: Greater than 30
[2017-08-08] MEDS ORDERED: FUROSEMIDE 10 MG/ML 4 ML VIAL IV STA (11:01)
[2017-08-08 12:26] LABS: Anion Gap 8 mmol/L; Blood Urea Nitrogen 11 mg/dL (9-20); Calcium 8.2 mg/dL (8.4-10.2); Carbon Dioxide 30 mmol/L (22-30); Chloride 100 mmol/L (98-107); Glucose 96 mg/dL (74-99); Potassium 3.7 mmol/L (3.5-5.1); Sodium 138 mmol/L (137-145)
--- NOTE | 2017-08-08 13:10 | P.PN ---
Subjective Progress Note Date: 08/08/17 Principal diagnosis: Left sided hemothorax, possibly empyema This is a pleasant 52-year-old gentleman who follows with Dr. Johnson as his primary care physician. He has no significant past medical history other than chronic and ongoing tobacco use and chronic neck pain with previous cervical fusion. Approximately 20 days ago on 07/13/2017 he had gotten up in the middle of the night to use the restroom. He was putting on a sock and heading down the stairs when he missed the first step and fell down 15 steps. He was seen at outside emergency room and was told he had 2-3 left-sided broken ribs was treated with pain medications and released. He had continuing ongoing pain and presented here to the emergency room on 07/17/2017 with continued complaints of significant left chest wall pain. No real worsening shortness of breath. No cough or congestion. No hemoptysis. He was having some pain with end expiration. Chest x-ray at that time did not reveal any evidence of pneumothorax, hemothorax or focal pneumonia. He was noted to have displaced rib fractures 5 through 9 on the left. He was continued on [place] and Motrin for the pain. Unfortunately continued to have worsening and ongoing pain and presented here to the emergency room early this morning around midnight. The pain was quite severe and he was quite short of breath. A CT angiogram was performed. Pulmonary embolism was ruled out however there was a significant left-sided hydrothorax with mild tension. His heart and mediastinum were shifted to the right. There are numerous healing posterior left rib fractures. The chest tube was inserted and approximately 650 MLS of bloody fluid was returned. He has had some relief of the pain. Follow-up chest x-ray does reveal some improvement however there is continued fluid possibly loculated. White count 22.9. Hemoglobin 15.4. Creatinine 1.90. He is on vancomycin and Zosyn. He is maintaining good O2 saturations in the upper 90s on 3 L/m per nasal cannula. He is hemodynamically stable. Afebrile. The patient is seen again today 08/03/2017 in follow-up on the selective care unit. He is awake and alert in no acute distress. He is still quite uncomfortable and needs extra encouragement regarding deep breathing and coughing exercises. He is maintaining good O2 saturations in the mid 90s on 3 L /m per nasal cannula. He did have a temp of 100.4 earlier this morning. He is slightly tachycardic. No tachypnea. Blood and urine cultures are pending. White count 22.5. Hemoglobin 13.2. Creatinine 1.10. His chest x-ray shows the side port outside of the left hemothorax on the chest tube. There is increasing pleural effusion or hemothorax. There is some possible mass effect on the mediastinum as well. He has been seen and evaluated by cardiothoracic services and the plan is for a VATS procedure today. Patient was reevaluated today on 08/04/2017, patient is status post VATS and decortication with 2 chest tubes placed at present in the left pleural space. Intraoperatively, the thoracic surgeon felt that the patient may have left- sided empyema. Patient did relatively well, he is back on selective, on antibiotics in the form of vancomycin and Zosyn, feeling better, but the chest x -ray continues to show significant consolidation in the left lower lobe. Patient is using incentive spirometry, however does not seem to be able to expand his left lower lobe. He may eventually require bronchoscopy to evaluate the left lower lobe. Labs were reviewed WBC count is 19.4 hemoglobin is 11.6 basic metabolic profile is relatively normal. Cultures from the left sided empyema are pending. Patient was reevaluated today on 08/05/2017, doing quite well, relatively asymptomatic. Continues to have [address], pain seems to be fairly well controlled. No cough no wheezing no shortness of breath no fever no chills no hemoptysis. Remains on antibiotics empirically. Patient may have empyema however it is not confirmed based on the cultures yet. On 08/06/2017 patient seen in follow-up. He still has the 2 left-sided chest tubes in place, he is status post left video assisted thoracoscopy and decortication of the left chest and lung. His left chest pain is reasonably controlled on pain medications. He is compliant with his incentive spirometry, he is able to achieve 1250 on it today. His chest tubes were placed to waterseal yesterday. Lung sounds are diminished bilaterally, more so over left lower lobe. He denies any acute respiratory distress. There is small amount of serosanguineous drainage from both chest tubes. No air leak was present. On 08/07/2017 patient seen again in follow-up. Denies any acute dyspnea, his pain is reasonably controlled with scheduled pain medications. Lung sounds are diminished over left lower lobe, clear lung sounds over the right lung. Incentive spirometry effort today is 1500 mL. Patient did ambulate today with physical therapy, and tolerated activity well. Currently on room air, with O2 sat at 94%. The 2 chest tubes in the left chest remain to waterseal, with small amount of serosanguineous drainage. Surgery is discussing removal of the chest tubes possibly later on today. Pleural fluid cultures are still pending. Blood cultures are negative, patient remains on vancomycin and Zosyn, continues on nebulized treatments. On 08/08/2017 patient is seen again, he had one of his left chest tubes removed yesterday midafternoon, and the other one was removed this morning. Denies any acute distress. He is able to achieve 1250 on his incentive spirometry today. He is having a bit more pain today than yesterday, and appears to be a bit more dyspneic than previously. Remains on room air, with O2 sat at 94%. Afebrile, vital signs are stable. Lung sounds reveal diminished to absent breath sounds over the left lower lobe, clear on the right. There is 1+ to 2+ bilateral extremity lower leg edema noted. We will make sure patient has knee-high BIANKA hose on, and we will give him 1 dose of IV Lasix. Objective - Vital Signs Vital signs: Vital Signs Temp 98.4 F 08/08/17 04:24 Pulse 85 08/08/17 04:24 Resp 16 08/08/17 04:24 BP 127/73 08/08/17 04:24 Pulse Ox 94 L 08/08/17 04:24 Intake & Output 08/07/17 08/08/17 08/08/17 18:59 06:59 18:59 Intake Total 640 480 240 Output Total 600 1185 Balance 40 -705 240 Weight 73.6 kg Intake: Intake, IV Titration 300 Amount Piperacillin-Tazobactam 3 50 .375 gm In Dextrose/Water 1 50ml.bag @ 12.5 mls/hr IVPB Q8HR [facility] Rx#: [id number] Vancomycin 1,000 mg In 250 Sodium Chloride 0.9% 250 ml @ 125 mls/hr IVPB Q8H [facility] Rx#:[id number] Oral 340 480 240 Output: Chest Tube Drainage 0 10 Chest Tube Left Upper Mid 0 10 -Axillary Chest Urine 600 1175 Other: Voiding Method Urinal Urinal # Voids 1 # Bowel Movements 0 - Exam GENERAL EXAM: Alert, active, comfortable in no apparent distress. HEAD: Normocephalic. EYES: Normal reaction of pupils, equal size. NOSE: Clear with pink turbinates. THROAT: No erythema or exudates. NECK: No masses, no JVD. CHEST: 2 left-sided chest tubes were removed LUNGS: Diminished breath sounds and dullness at the left base noted. No crackles or rhonchi or wheezes. CVS: S1 and S2 normal with no audible murmur, regular rhythm. ABDOMEN: No hepatosplenomegaly, normal bowel sounds, no guarding or rigidity. SPINE: No scoliosis or deformity SKIN: No rashes EXTREMITIES: 1+ to 2+ bilateral lower extremity edema noted CENTRAL NERVOUS SYSTEM: No focal deficits, tone is normal in all 4 extremities. EXTREMITIES: There is no peripheral edema. No clubbing, no cyanosis. Peripheral pulses are intact. - Labs CBC & Chem 7: 08/08/17 06:09 08/08/17 06:09 Labs: Abnormal Lab Results - Last 24 Hours (Table) 08/08/17 08/08/17 Range/Units 06:09 06:09 WBC 13.1 H (3.8-10.6) k/uL RBC 3.32 L (4.30-5.90) m/uL Hgb 9.3 L (13.0-17.5) gm/dL Hct 30.1 L (39.0-53.0) % MCHC 30.7 L (31.0-37.0) g/dL Plt Count 579 H (150-450) k/uL Neutrophils # 10.3 H (1.3-7.7) k/uL Calcium 8.2 L (8.4-10.2) mg/dL Microbiology - Last 24 Hours (Table) 08/02/17 00:30 Blood Culture - Final Blood No Growth after 144 hours 08/03/17 16:00 Anaerobic Culture - Final Chest 08/03/17 16:00 Gram Stain - Preliminary Thoracic Fluid Body Fluid Culture - Preliminary Alpha Hemolytic Streptococcus 08/02/17 16:37 Blood Culture - Preliminary Blood No Growth after 120 hours 08/02/17 16:19 Blood Culture - Preliminary Blood No Growth after 120 hours 08/03/17 16:00 Gram Stain - Final Chest Tissue Culture - Final Assessment and Plan Plan: Assessment: #1 Acute hypoxic respiratory failure secondary to a large left sided hemothorax , possible empyema secondary to trauma. Status post chest tube insertion followed by VATS and decortication, with placement of 2 left chest tubes. Thoracic fluid culture is positive for alphahemolytic streptococcus, patient is covered with Levaquin. #2 Left-sided chest wall trauma with multiple rib fractures secondary to a fall down 15 steps on 07/13/2017 #3 Chronic and ongoing tobacco dependence. #4 Chronic neck pain, status post cervical fusion. Recommendation: We'll give the patient 1 dose of 40 mg IV Lasix, apply bilateral lower extremity BIANKA hose. Continue incentive spirometry, continue pain control, nebulized treatments. Anticipate discharge home possibly later today or tomorrow, pending satisfactory chest x-ray after removal of the left sided chest tube. I performed a history & physical examination of the patient and discussed their management with my nurse practitioner, Radha Valentin. I reviewed the nurse practitioner's note and agree with the documented findings and plan of care. Lung sounds are as a for diminished air entry over left lower lobe, dullness to percussion present. The findings and the impression was discussed with the patient. I attest to the documentation by the nurse practitioner. Time with Patient: Less than 30
[2017-08-08] MEDS: THIAMINE 100 MG TAB PO SCH ×2 (13:12→17:24)
[2017-08-08] MEDS: FOLIC ACID 1 MG TAB PO SCH (13:12)
[2017-08-08] MEDS: MULTIVITAMINS, THERA 1 EACH TAB PO SCH (13:12)
--- NOTE | 2017-08-08 17:12 | PN ---
PROGRESS NOTE DATE OF SERVICE: 08/08/2017 This 52-year-old gentleman admitted with left-sided pleural effusion and possibly traumatic hemothorax also empyema. Also the patient's chest tube drainage was removed today. No chest pain. No palpitations. No fever. EXAM: On exam, alert and oriented x3. Pulse 89, blood pressure 140/77, respiration 18, temperature 99.1, pulse ox 93% on room air. HEENT: Conjunctivae normal. NECK: No jugular venous distention. CARDIOVASCULAR: S1, S2 muffled. RESPIRATORY: Breath sounds diminished in the bases A few scattered rhonchi and crackles. ABDOMEN: Soft, nontender. LEGS: No edema. NERVOUS SYSTEM: No focal deficits. LABS: WBC 13.2, hemoglobin 9.2, sodium 130, potassium 3.7. ASSESSMENT: 1. Left-sided pleural effusion with possibly traumatic hemothorax as well as empyema on the left side, status post decortication and chest tube drainage as well as acute hypoxic respiratory failure with mediastinal tube, present on admission. 2. Increased WBC with possible sepsis present on admission, possibly secondary to empyema. 3. Hyponatremia. 4. Increased creatinine with acute renal failure possibly multifactorial, present on admission. 5. History of degenerative joint disease. 6. History of neck pain. 7. History EtOH. 8. History of cervical fusion. 9. History of nicotine dependence. 10.History of THC. RECOMMENDATIONS AND DISCUSSION: I recommend to continue current management. Continue with IV antibiotics. Closely follow with Infectious Disease and Pulmonary and cardiothoracic Surgery. As mentioned chest tubes are removed. I would recommend continue to monitor. Guarded prognosis. Further recommendations to follow. MMODL / IJN: [id number] /
[2017-08-09] MEDS: HYDROcodone/APAP 5-325MG 1 EACH TAB PO PRN ×3 (02:37→15:27)
[2017-08-09 03:41] VITALS: RESP 16
[2017-08-09] MEDS: LEVOFLOXACIN 500 MG TAB PO SCH (06:10)
[2017-08-09 06:11] LABS: Basophils # (A) 0.1 k/uL (0-0.2); Basophils % (A) 1 %; Eosinophils # (A) 0.2 k/uL (0-0.7); Eosinophils % (A) 2 %; HCT 31.2 % (39.0-53.0); HGB 9.7 gm/dL (13.0-17.5); Lymphocytes # (A) 1.7 k/uL (1.0-4.8); Lymphocytes % (A) 12 %; MCH 28.5 pg (25.0-35.0); MCHC 31.1 g/dL (31.0-37.0); MCV 91.7 fL (80.0-100.0); Mean Platelet Volume 6.5; Monocytes # (A) 0.7 k/uL (0-1.0); Monocytes % (A) 6 %; Neutrophils # (A) 10.5 k/uL (1.3-7.7); Neutrophils % (A) 78 %; Platelet Count 748 k/uL (150-450); RDW 12.9 % (11.5-15.5); WBC 13.4 k/uL (3.8-10.6)
[2017-08-09] MEDS: PANTOPRAZOLE 40 MG TABLET PO SCH (06:11)
[2017-08-09 06:29] LABS: Anion Gap 9 mmol/L; Blood Urea Nitrogen 8 mg/dL (9-20); Calcium 8.3 mg/dL (8.4-10.2); Carbon Dioxide 32 mmol/L (22-30); Chloride 97 mmol/L (98-107); Glucose 93 mg/dL (74-99); Potassium 3.5 mmol/L (3.5-5.1); Sodium 138 mmol/L (137-145)
--- NOTE | 2017-08-09 08:15 | XR ---
EXAMINATION TYPE: XR chest 2V DATE OF EXAM: 08/09/2017 COMPARISON: 08/08/2017 HISTORY: Status post chest tube removal. TECHNIQUE: Frontal and lateral views of the chest are obtained. FINDINGS: Left-sided chest tube has been removed. No evidence for visible pneumothorax. Persistent left basilar pleural effusion, atelectasis and/or infiltrate. Displaced left-sided rib fractures redemonstrated. No evidence for infiltrate. No evidence for atelectasis. Heart size is stable. Mediastinal structures are stable and grossly unremarkable. No evidence for hilar prominence. Degenerative changes dorsal spine. IMPRESSION: 1. Left-sided chest tube has been removed. No evidence for visible pneumothorax. Persistent left basi lar pleural effusion, atelectasis and/or infiltrate. Displaced left-sided rib fractures redemonstrate d.
[2017-08-09] MEDS: IPRATROPIUM-ALBUTEROL 3 ML NEB INHALATION SCH ×3 (08:49→16:40)
[2017-08-09] MEDS: NICOTINE 14MG/24HR PATCH TRANSDERM SCH (09:59)
[2017-08-09] MEDS: HEPARIN SODIUM,PORCINE 5,000 UNIT/ML 1 ML VIAL SQ SCH (09:59)
--- NOTE | 2017-08-09 10:59 | P.PN ---
Subjective Progress Note Date: 08/09/17 Principal diagnosis: Left-sided empyema, status post left-sided chest wall trauma with multiple rib fractures, remote history of DVT, current tobacco dependence, EtOH abuse, daily marijuana use, chronic neck pain with history of cervical fusion. POD #6 left video thoracoscopic-assisted decortication of the left chest and lung. Patient is currently sitting up to the bedside chair. He is in no acute distress. He denies any complaints of pain at this time. He is alert and oriented 3. His oxygen saturations are 92% on room air. He is achieving 1250 mL on his incentive spirometry with encouragement. He reports that [facility]. Left posterior chest tube was discontinued yesterday 08/08/2017. Objective - Vital Signs Vital signs: Vital Signs Temp 98.6 F 08/09/17 03:42 Pulse 86 08/09/17 03:42 Resp 16 08/09/17 03:42 BP 113/69 08/09/17 03:42 Pulse Ox 92 L 08/09/17 03:42 Intake & Output 08/08/17 08/09/17 08/09/17 18:59 06:59 18:59 Intake Total 480 240 Output Total 575 Balance 480 -575 240 Weight 69.4 kg Intake: Oral 480 240 Output: Urine 575 Other: Voiding Method Urinal Urinal # Voids 2 # Bowel Movements 0 - Constitutional General appearance: Present: cooperative, no acute distress, thin - EENT ENT: Present: hearing grossly normal - Neck Details: No JVD, no lymphadenopathy, neck is supple. - Respiratory Details: Lung sounds are essentially clear throughout, diminished to his left lower lobe. Respirations are symmetrical and nonlabored. Oxygen saturation are 92% on room air. He is achieving 1250 mL on his incentive spirometry with encouragement. Effective cough. - Cardiovascular Details: Regular rhythm and rate. S1 and S2 present, negative for S3, gallop or murmur. Remote telemetry showing normal sinus rhythm heart rate 89. No edema present. Knee-high BIANKA hose and sequential compression devices in place to his bilateral lower extremities. - Gastrointestinal Gastrointestinal Comment(s): Abdomen is soft, nontender and nondistended. Active bowel sounds all 4 abdominal quadrants. He is tolerating oral intake. Last bowel movement 2017. - Genitourinary Genitourinary Comment(s): Adequate urine output. Clear cedric urine. - Integumentary Integumentary Comment(s): Left lateral chest incisions clean dry and well approximated. No drainage or redness. Skin is warm, dry and pink. - Neurologic Neurologic: Present: CNII-XII intact - Musculoskeletal Musculoskeletal: Present: gait normal, strength equal bilaterally - Psychiatric Psychiatric: Present: A&O x's 3, appropriate affect, intact judgment & insight - Allied health notes Allied health notes reviewed: nursing - Labs CBC & Chem 7: 08/09/17 05:36 08/09/17 05:36 Labs: Abnormal Lab Results - Last 24 Hours (Table) 08/08/17 08/09/17 08/09/17 Range/Units 06:09 05:36 05:36 WBC 13.4 H (3.8-10.6) k/uL RBC 3.40 L (4.30-5.90) m/uL Hgb 9.7 L (13.0-17.5) gm/dL Hct 31.2 L (39.0-53.0) % Plt Count 748 H (150-450) k/uL Neutrophils # 10.5 H (1.3-7.7) k/uL Chloride 97 L (98-107) mmol/L Carbon Dioxide 32 H (22-30) mmol/L BUN 8 L (9-20) mg/dL Calcium 8.2 L 8.3 L (8.4-10.2) mg/dL Microbiology - Last 24 Hours (Table) 08/02/17 16:37 Blood Culture - Final Blood No Growth after 144 hours 08/02/17 16:19 Blood Culture - Final Blood No Growth after 144 hours - Imaging and Cardiology Chest x-ray: report reviewed, image reviewed Assessment and Plan (1) Empyema of left pleural space Current Visit: Yes Status: Acute Code(s): J86.9 - PYOTHORAX WITHOUT FISTULA SNOMED Code(s): 69899760 (2) Alcohol abuse Current Visit: Yes Status: Chronic Code(s): F10.10 - ALCOHOL ABUSE, UNCOMPLICATED SNOMED Code(s): 60243186 (3) Fracture of rib of left side Current Visit: Yes Status: Chronic Code(s): S22.32XA - FRACTURE OF ONE RIB, LEFT SIDE, INIT FOR CLOS FX SNOMED Code(s): 50979416 (4) Marijuana use Current Visit: Yes Status: Chronic Code(s): F12.90 - CANNABIS USE, UNSPECIFIED, UNCOMPLICATED SNOMED Code(s): 601469792 (5) Tobacco dependence Current Visit: Yes Status: Chronic Code(s): F17.200 - NICOTINE DEPENDENCE, UNSPECIFIED, UNCOMPLICATED SNOMED Code(s): 67646178 (6) History of DVT (deep vein thrombosis) Current Visit: No Status: Resolved Code(s): Z86.718 - PERSONAL HISTORY OF OTHER VENOUS THROMBOSIS AND EMBOLISM SNOMED Code(s): 415244167 Plan: 1. Continue CIWA protocol. History of EtOH abuse. 2. Encourage use of his incentive spirometry every hour while awake. Pulmonary management per Dr. Dean's recommendations. 3. Antibiotic management per infectious disease recommendations for discharge. Thoracic fluid preliminary showing all for hemolytic streptococcus quantity rare. 4. Monitor accurate I's and O's. 5. GI and DVT prophylaxis in place. 6. Monitor daily labs and chest x-rays. 7. Increase activity as tolerated, out of bed for all meals. Physical and occupational therapy following. 8. Pain management per when necessary orders. 9. Encourage smoking cessation. Smoking cessation education in place. 10. Medical management recommendations per Dr. Banks. 11. More recommendations to follow as patient progresses in his care. Time with Patient: Greater than 30
--- NOTE | 2017-08-09 12:10 | P.PN ---
Subjective Progress Note Date: 08/09/17 Principal diagnosis: Large left-sided pleural effusion with suspected loculation. This is a pleasant 52-year-old gentleman who follows with Dr. Johnson as his primary care physician. He has no significant past medical history other than chronic and ongoing tobacco use and chronic neck pain with previous cervical fusion. Approximately 20 days ago on 07/13/2017 he had gotten up in the middle of the night to use the restroom. He was putting on a sock and heading down the stairs when he missed the first step and fell down 15 steps. He was seen at outside emergency room and was told he had 2-3 left-sided broken ribs was treated with pain medications and released. He had continuing ongoing pain and presented here to the emergency room on 07/17/2017 with continued complaints of significant left chest wall pain. No real worsening shortness of breath. No cough or congestion. No hemoptysis. He was having some pain with end expiration. Chest x-ray at that time did not reveal any evidence of pneumothorax, hemothorax or focal pneumonia. He was noted to have displaced rib fractures 5 through 9 on the left. He was continued on [place] and Motrin for the pain. Unfortunately continued to have worsening and ongoing pain and presented here to the emergency room early this morning around midnight. The pain was quite severe and he was quite short of breath. A CT angiogram was performed. Pulmonary embolism was ruled out however there was a significant left-sided hydrothorax with mild tension. His heart and mediastinum were shifted to the right. There are numerous healing posterior left rib fractures. The chest tube was inserted and approximately 650 MLS of bloody fluid was returned. He has had some relief of the pain. Follow-up chest x-ray does reveal some improvement however there is continued fluid possibly loculated. White count 22.9. Hemoglobin 15.4. Creatinine 1.90. He is on vancomycin and Zosyn. He is maintaining good O2 saturations in the upper 90s on 3 L/m per nasal cannula. He is hemodynamically stable. Afebrile. The patient is seen again today 08/03/2017 in follow-up on the selective care unit. He is awake and alert in no acute distress. He is still quite uncomfortable and needs extra encouragement regarding deep breathing and coughing exercises. He is maintaining good O2 saturations in the mid 90s on 3 L /m per nasal cannula. He did have a temp of 100.4 earlier this morning. He is slightly tachycardic. No tachypnea. Blood and urine cultures are pending. White count 22.5. Hemoglobin 13.2. Creatinine 1.10. His chest x-ray shows the side port outside of the left hemothorax on the chest tube. There is increasing pleural effusion or hemothorax. There is some possible mass effect on the mediastinum as well. He has been seen and evaluated by cardiothoracic services and the plan is for a VATS procedure today. Patient was reevaluated today on 08/04/2017, patient is status post VATS and decortication with 2 chest tubes placed at present in the left pleural space. Intraoperatively, the thoracic surgeon felt that the patient may have left- sided empyema. Patient did relatively well, he is back on selective, on antibiotics in the form of vancomycin and Zosyn, feeling better, but the chest x -ray continues to show significant consolidation in the left lower lobe. Patient is using incentive spirometry, however does not seem to be able to expand his left lower lobe. He may eventually require bronchoscopy to evaluate the left lower lobe. Labs were reviewed WBC count is 19.4 hemoglobin is 11.6 basic metabolic profile is relatively normal. Cultures from the left sided empyema are pending. Patient was reevaluated today on 08/05/2017, doing quite well, relatively asymptomatic. Continues to have [address], pain seems to be fairly well controlled. No cough no wheezing no shortness of breath no fever no chills no hemoptysis. Remains on antibiotics empirically. Patient may have empyema however it is not confirmed based on the cultures yet. On 08/06/2017 patient seen in follow-up. He still has the 2 left-sided chest tubes in place, he is status post left video assisted thoracoscopy and decortication of the left chest and lung. His left chest pain is reasonably controlled on pain medications. He is compliant with his incentive spirometry, he is able to achieve 1250 on it today. His chest tubes were placed to waterseal yesterday. Lung sounds are diminished bilaterally, more so over left lower lobe. He denies any acute respiratory distress. There is small amount of serosanguineous drainage from both chest tubes. No air leak was present. On 08/07/2017 patient seen again in follow-up. Denies any acute dyspnea, his pain is reasonably controlled with scheduled pain medications. Lung sounds are diminished over left lower lobe, clear lung sounds over the right lung. Incentive spirometry effort today is 1500 mL. Patient did ambulate today with physical therapy, and tolerated activity well. Currently on room air, with O2 sat at 94%. The 2 chest tubes in the left chest remain to waterseal, with small amount of serosanguineous drainage. Surgery is discussing removal of the chest tubes possibly later on today. Pleural fluid cultures are still pending. Blood cultures are negative, patient remains on vancomycin and Zosyn, continues on nebulized treatments. On 08/08/2017 patient is seen again, he had one of his left chest tubes removed yesterday midafternoon, and the other one was removed this morning. Denies any acute distress. He is able to achieve 1250 on his incentive spirometry today. He is having a bit more pain today than yesterday, and appears to be a bit more dyspneic than previously. Remains on room air, with O2 sat at 94%. Afebrile, vital signs are stable. Lung sounds reveal diminished to absent breath sounds over the left lower lobe, clear on the right. There is 1+ to 2+ bilateral extremity lower leg edema noted. We will make sure patient has knee-high BIANKA hose on, and we will give him 1 dose of IV Lasix. The patient is seen again today 08/09/2017 in follow-up on the selective care unit. He is currently sitting up in a chair at the bedside. He is awake and alert in no acute distress. He is hoping to go home today. He is maintaining good O2 saturations in the mid 90s on room air. He has been afebrile. Hemodynamically stable. Today's chest x-ray shows no evidence of pneumothorax. There is persistent left basilar pleural effusion, atelectasis. Displaced left rib fractures continue. He is working well with the incentive spirometer. He's been up ambulating in the hallway. Objective - Vital Signs Vital signs: Vital Signs Temp 97.4 F L 08/09/17 09:40 Pulse 94 08/09/17 09:40 Resp 16 08/09/17 09:40 BP 106/70 08/09/17 09:40 Pulse Ox 94 L 08/09/17 09:40 Intake & Output 08/08/17 08/09/17 08/09/17 18:59 06:59 18:59 Intake Total 480 240 Output Total 575 Balance 480 -575 240 Weight 69.4 kg Intake: Oral 480 240 Output: Urine 575 Other: Voiding Method Urinal Urinal # Voids 2 # Bowel Movements 0 - Exam GENERAL EXAM: Alert, active, comfortable in no apparent distress. HEAD: Normocephalic. EYES: Normal reaction of pupils, equal size. NOSE: Clear with pink turbinates. THROAT: No erythema or exudates. NECK: No masses, no JVD. CHEST: Left-sided chest tube in place LUNGS: Equal air entry with rhonchi and crackles in the left lung. CVS: S1 and S2 normal with no audible murmur, regular rhythm. ABDOMEN: No hepatosplenomegaly, normal bowel sounds, no guarding or rigidity. SPINE: No scoliosis or deformity SKIN: No rashes CENTRAL NERVOUS SYSTEM: No focal deficits, tone is normal in all 4 extremities. EXTREMITIES: There is no peripheral edema. No clubbing, no cyanosis. Peripheral pulses are intact. - Labs CBC & Chem 7: 08/09/17 05:36 08/09/17 05:36 Labs: Abnormal Lab Results - Last 24 Hours (Table) 08/08/17 08/09/17 08/09/17 Range/Units 06:09 05:36 05:36 WBC 13.4 H (3.8-10.6) k/uL RBC 3.40 L (4.30-5.90) m/uL Hgb 9.7 L (13.0-17.5) gm/dL Hct 31.2 L (39.0-53.0) % Plt Count 748 H (150-450) k/uL Neutrophils # 10.5 H (1.3-7.7) k/uL Chloride 97 L (98-107) mmol/L Carbon Dioxide 32 H (22-30) mmol/L BUN 8 L (9-20) mg/dL Calcium 8.2 L 8.3 L (8.4-10.2) mg/dL Microbiology - Last 24 Hours (Table) 08/02/17 16:37 Blood Culture - Final Blood No Growth after 144 hours 08/02/17 16:19 Blood Culture - Final Blood No Growth after 144 hours Assessment and Plan Assessment: Impression: #1 Acute hypoxic respiratory failure secondary to a large left hydrothorax secondary to trauma. He is status post VATS procedure on 08/03/2017 for left- sided empyema. Chest tube was removed yesterday. #2 Left-sided chest wall trauma with multiple rib fractures secondary to a fall down 15 steps on 07/13/2017 #3 Chronic and ongoing tobacco dependence. #4 Chronic neck pain, status post cervical fusion. Plan: The patient was seen and evaluated by Dr. Dean. His chest x-ray was reviewed. He is currently stable from the pulmonary standpoint and could be discharged home. He is encouraged to continue to work with the incentive spirometer. He is encouraged to continue with complete smoking cessation. Alcohol cessation. He should follow-up in our office in 1-2 weeks' time. We'll repeat a chest x- ray then. He is however encouraged to call sooner with any recurrence of symptoms or other questions or concerns. I, the cosigning physician, performed a history & physical examination of the patient. Lungs sounds have scattered rhonchi more so on the left lung, crackles in the posterior base. Maintaining good O2 saturations in the 90s on 3 L/m per nasal cannula. I discussed the assessment and plan of care with my nurse practitioner, Arielle Nino. I attest to the above consultation as dictated by her.
[2017-08-09] MEDS: FOLIC ACID 1 MG TAB PO SCH (14:45)
[2017-08-09] MEDS: THIAMINE 100 MG TAB PO SCH (14:45)
[2017-08-09] MEDS: MULTIVITAMINS, THERA 1 EACH TAB PO SCH (14:45)
[2017-08-09 15:40] VITALS: BP 125/72; PULSE 85; TEMP 97.8
--- NOTE | 2017-08-09 20:01 | DS ---
DISCHARGE SUMMARY FINAL DIAGNOSES: 1. Left-sided pleural effusion with possible traumatic hemothorax followed by empyema on the left side, status post decortication and chest tube drainage as well as acute hypoxic respiratory failure with a mediastinal shift, present on admission. 2. Increased white count, possible sepsis, present on admission, secondary to empyema, improved. 3. Hyponatremia. 4. Increased creatinine with acute renal failure, possibly multifactorial, present on admission. 5. History of degenerative joint disease. 6. History of neck pain. 7. History of ethanol. 8. History of cervical fusion. 9. History of nicotine dependence. 10.History of tetrahydrocannabinol. DISCHARGE DISPOSITION: The patient will be discharged in stable condition with guarded prognosis. Total time taken 35 minutes. HISTORY OF PRESENT ILLNESS: This 52-year-old gentleman with a past medical history of multiple medical problems was admitted with left pleural effusion, possibly empyema. Patient had decortication and chest tube drainage. Patient improved significantly. Broad-spectrum IV antibiotics were used. The patient was seen by multiple consultants. Cultures were negative except for alpha hemolytic streptococcus in the thoracic fluid. On exam, vitals are stable. CARDIOVASCULAR SYSTEM: S1, S2 muffled. RESPIRATORY SYSTEM: Breath sounds diminished at the bases. A few scattered rhonchi. ABDOMEN: Soft, non-tender. DISCHARGE ADVICE AND MEDICATIONS: 1. Diet is cardiac. 2. Activity limited until followup. 3. Follow up with primary physician in 2 to 3 days. 4. Follow up with Dr. Dean and Dr. Hogue as recommended. 5. Albuterol 2 puffs q.i.d. and p.r.n. 6. Flexeril 10 mg p.o. daily. 7. Folic acid 1 mg daily. 8. Hydrocodone 1 tablet q.6 p.r.n. 9. Ativan 1 mg t.i.d. p.r.n. 10.Moxifloxacin 100 mg p.o. daily for 2 weeks. 11.Multivitamins 1 p.o. daily. 12.Habitrol 14 daily. 13.Protonix 40 mg daily. 14.Thiamine 100 mg p.o. daily. 15.No alcohol. Once again, the patient will be discharged in stable condition with guarded prognosis. MMODL / IJN: [id number] /
== END 2017-08-09 17:20 | disposition home or self-care (01) | DRG 853 ==
LOC: EC 00:29 → 6SEL 02:52
PROVIDERS: ADMIT Hospitalist; ATTEND Hospitalist
PROC: 0W9B30Z Drainage of Left Pleural Cavity with Drainage Device, Percutaneous Approach (ICD-10-PCS; 2017-08-02)
PROC: 0BC Respiratory System, Extirpation (ICD-10-PCS; 2017-08-03)
PROC: 0BC Respiratory System, Extirpation (ICD-10-PCS; 2017-08-03)
PROC: 0BCJ4ZZ Extirpation of Matter from Left Lower Lung Lobe, Percutaneous Endoscopic Approach (ICD-10-PCS; principal; 2017-08-03 09:45)
DX: A41.9 Sepsis, unspecified organism (principal); J86.9 Pyothorax without fistula; J96.01 Acute respiratory failure with hypoxia; S27.2XXA Traumatic hemopneumothorax, initial encounter; E87.1 Hypo-osmolality and hyponatremia; N17.9 Acute kidney failure, unspecified; J90 Pleural effusion, not elsewhere classified; J98.11 Atelectasis; S27.301A Unspecified injury of lung, unilateral, initial encounter; S22.42XD Multiple fractures of ribs, left side, subsequent encounter for fracture with routine healing; B95.4 Other streptococcus as the cause of diseases classified elsewhere; G89.29 Other chronic pain; F10.10 Alcohol abuse, uncomplicated; F17.210 Nicotine dependence, cigarettes, uncomplicated; M19.91 Primary osteoarthritis, unspecified site; I25.10 Atherosclerotic heart disease of native coronary artery without angina pectoris; Z86.718 Personal history of other venous thrombosis and embolism; Z98.1 Arthrodesis status; W10.9XXD Fall (on) (from) unspecified stairs and steps, subsequent encounter
CPT/HCPCS: 32551; 36415; 71045; 71046; 71275; 80048; 80053; 80061; 80202; 81003; 82150; 82550; 82553; 83605; 83690; 83735; 83880; 84100; 84484; 85025; 85379; 85610; 85730; 87040; 87070; 87075; 87077; 87086; 87186; 87205; 88304; 88305; 93005; 94640; 94760; 96361; 96365; 96375; 99291

== ENCOUNTER → 2017-08-13 | Outpatient (CLI) | payer OTHER ==
[2017-08-13 12:43] LABS: ALT 49 U/L (21-72); AST 40 U/L (17-59); Albumin 3.6 g/dL (3.5-5.0); Alkaline Phosphatase 109 U/L (38-126); Anion Gap 10 mmol/L; Blood Urea Nitrogen 13 mg/dL (9-20); Calcium 9.4 mg/dL (8.4-10.2); Carbon Dioxide 29 mmol/L (22-30); Chloride 99 mmol/L (98-107); Glucose 98 mg/dL (74-99); Potassium 4.7 mmol/L (3.5-5.1); Sodium 138 mmol/L (137-145); Total Bilirubin 0.3 mg/dL (0.2-1.3); Total Protein 7.7 g/dL (6.3-8.2)
[2017-08-13 12:59] LABS: Basophils # (A) 0.1 k/uL (0-0.2); Basophils % (A) 1 %; Eosinophils # (A) 0.3 k/uL (0-0.7); Eosinophils % (A) 2 %; HCT 36.7 % (39.0-53.0); HGB 11.5 gm/dL (13.0-17.5); Lymphocytes # (A) 2.5 k/uL (1.0-4.8); Lymphocytes % (A) 15 %; MCH 28.8 pg (25.0-35.0); MCHC 31.3 g/dL (31.0-37.0); Mean Platelet Volume 6.3; Monocytes % (A) 6 %; Neutrophils # (A) 12.4 k/uL (1.3-7.7); Neutrophils % (A) 75 %; RBC 3.99 m/uL (4.30-5.90); RDW 13.2 % (11.5-15.5); WBC 16.5 k/uL (3.8-10.6)
[2017-08-13 13:53] LABS: Platelet Count 1102 k/uL (150-450)
== END | disposition home or self-care (01) ==
LOC: LABWHC1 12:13
PROVIDERS: ATTEND Nurse Practitioner
DX: J43.9 Emphysema, unspecified (principal); R79.89 Other specified abnormal findings of blood chemistry; F10.10 Alcohol abuse, uncomplicated
CPT/HCPCS: 36415; 80053; 85025

== ENCOUNTER → 2017-08-24 | Outpatient (CLI) | payer OTHER ==
--- NOTE | 2017-08-24 10:11 | XR ---
EXAMINATION TYPE: XR chest 2V DATE OF EXAM: 08/24/2017 COMPARISON: 08/09/2017 HISTORY: Follow-up for rib fractures. Status post VATS procedure. TECHNIQUE: Frontal and lateral views of the chest are obtained. FINDINGS: There is decreased size in the now small left pleural effusion with left basilar airspace disease, likely atelectasis. This partially obscures the mediastinal borders although the mediastinum is nonenlarged. Right lung is clear. There is slight leftward mediastinal shift due to volume loss a nd atelectasis. There is resolution of the previously seen subcutaneous emphysema along the left late ral chest wall. The postsurgical iatrogenic rib fractures from the VATS procedure are nonunited with no cortical bridging in the interim. These are seen of the lateral margins of ribs 6, 7, 8, and 9. Pl eural appears symmetric bilaterally without sizable pneumothorax. IMPRESSION: 1. Redemonstration of multiple contiguous nonunited, minimally displaced, left lateral rib fractures without interval cortical bridging. No sizable residual pneumothorax. 2. Decreased size of the small left pleural effusion and persistent left basilar airspace disease, li sincere atelectasis.
== END | disposition home or self-care (01) ==
LOC: RADXRMAIN 09:40
PROVIDERS: ATTEND Nurse Practitioner Family
DX: S22.32XD Fracture of one rib, left side, subsequent encounter for fracture with routine healing (principal); J90 Pleural effusion, not elsewhere classified; J98.4 Other disorders of lung; Z98.890 Other specified postprocedural states
CPT/HCPCS: 71046

== ENCOUNTER 2019-12-17 13:20 | Emergency (ER) | payer OTHER ==
--- NOTE | 2019-12-17 15:00 | ED ---
ENT HPI - General Stated complaint: ear pain/infection Time Seen by Provider: 12/17/19 14:47 - History of Present Illness Initial comments: Patient is a 54-year-old male presenting to the emergency department with a chief complaint of right ear pain. Patient states yesterday he was swimming and afterwards he cannot fully clean all of the water from his ear. Patient states today's noticed some pain in the right earring cannot hear as well. Patient r eports there is pain when you pull the right auricle. Denies any posterior radicular pain or erythema. Denies taking medication to the symptoms. - Related Data Home Medications Medication Instructions Recorded Confirmed Cyclobenzaprine [Flexeril] 10 mg PO DAILY PRN 07/17/17 08/02/17 Hydrocodone/Acetaminophen [[place] 1 tab PO Q6HR PRN 07/17/17 08/02/17 7.5-325] Previous Rx's Medication Instructions Recorded Moxifloxacin HCl 400 mg PO DAILY #14 tab 08/08/17 Albuterol Sulfate [Proair Hfa] 2 puff INHALATION QID #1 inhaler 08/09/17 Folic Acid 1 mg PO DAILY@1200 #30 tab 08/09/17 LORazepam [Ativan] 1 mg PO TID PRN #20 tab 08/09/17 Multivitamins, Thera [Multivitamin 1 each PO DAILY@1200 #30 tab 08/09/17 (formulary)] Nicotine 14Mg/24Hr Patch [Habitrol] 1 patch TRANSDERM DAILY #30 patch 08/09/17 Pantoprazole [Protonix] 40 mg PO AC-BRKFST #30 tablet. 08/09/17 Thiamine [Vitamin B-1] 100 mg PO DAILY #30 tab 08/09/17 Allergies Allergy/AdvReac Type Severity Reaction Status Date / Time No Known Allergies Allergy Verified 08/02/17 08:27 Review of Systems ROS Statement: Those systems with pertinent positive or pertinent negative responses have been documented in the HPI. ROS Other: All systems not noted in ROS Statement are negative. Past Medical History Past Medical History: Deep Vein Thrombosis (DVT) Additional Past Medical History / Comment(s): neck pain,CERVICAL FUSION, ETOH, History of Any Multi-Drug Resistant Organisms: None Reported Additional Past Surgical History / Comment(s): cervical fusion Past Anesthesia/Blood Transfusion Reactions: No Reported Reaction Past Psychological History: No Psychological Hx Reported Smoking Status: Current every day smoker Past Alcohol Use History: Daily, Heavy Additional Past Alcohol Use History / Comment(s): DRINKS 18 BEERS A DAY. SMOKES A PPD AND SMOKES MARIJUANA DAILY. Past Drug Use History: Marijuana - Past Family History Father Family Medical History: Myocardial Infarction ([place]) General Exam Limitations: no limitations General appearance: alert, in no apparent distress Head exam: Present: atraumatic, normocephalic, normal inspection Eye exam: Present: normal appearance, PERRL, EOMI Pupils: Present: normal accommodation ENT exam: Present: normal exam, normal oropharynx, mucous membranes moist, TM's normal bilaterally (Unable to visualize right tympanic membrane due to the external auditory canal inflammation.). Absent: normal external ear exam (Inflammatory changes in the right external auditory canal.) Neck exam: Present: normal inspection, full ROM. Absent: tenderness Respiratory exam: Present: normal lung sounds bilaterally. Absent: respiratory distress, wheezes Cardiovascular Exam: Present: regular rate, normal rhythm, normal heart sounds GI/Abdominal exam: Present: soft. Absent: distended, tenderness, guarding Extremities exam: Present: normal inspection, full ROM Back exam: Present: normal inspection, full ROM. Absent: tenderness Neurological exam: Present: alert, oriented X3, CN II-XII intact, normal gait Psychiatric exam: Present: normal affect, normal mood Skin exam: Present: warm, dry, intact, normal color Medical Decision Making - Medical Decision Making Patient is a 54-year-old male presenting to emergency Department with a chief complaint of ear pain. On exam patient appears to have otitis externa in the right ear. Patient did swim prior to onset of symptoms. Decreased hearing secondary to external auditory canal swelling and inflammation. No signs of mastoiditis. No fevers or chills. Patient will be discharged with otic drops. Return parameters were thoroughly discussed with patient is worsening and agreeable. Case discussed with physician. Disposition Clinical Impression: Right ear pain, Otitis externa of right ear Disposition: HOME SELF-CARE Condition: Stable Instructions (If sedation given, give patient instructions): Otitis Externa (DC) Additional Instructions: Take prescribed medication as directed. Follow-up with primary care. Return to emergency department if symptoms worsen. Is patient prescribed a controlled substance at d/c from ED?: No Referrals: None,Stated [Primary Care Provider] - 1-2 days Time of Disposition: 15:00
== END 2019-12-17 15:15 | disposition home or self-care (01) ==
LOC: EC 13:20
DX: H60.91 Unspecified otitis externa, right ear (principal); F17.200 Nicotine dependence, unspecified, uncomplicated
CPT/HCPCS: 99282